=== PATIENT | male | born 1960 | race Caucasian/White ===

== ENCOUNTER → 2017-04-30 | Outpatient (CLI) | payer OTHER, SELFPAY | PROVIDERS: Visit Provider Urology | DX: E29.1 Testicular hypofunction (principal) | CPT/HCPCS: 36415; 84402 ==

== ENCOUNTER → 2019-02-15 13:13 | Outpatient (CLI) | payer OTHER, SELFPAY ==
[2019-02-18 17:25] LABS: Testosterone,Free 5.9 pg/mL (7.2-24.0)
== END ==
PROVIDERS: Visit Provider Urology
DX: E29.1 Testicular hypofunction (principal)
CPT/HCPCS: 36415; 84402; 84403

== ENCOUNTER → 2019-04-13 14:49 | Outpatient (CLI) | payer OTHER, SELFPAY ==
[2019-04-13 15:07] LABS: Basophils # 0.1 K/mm3 (0-0.2); Basophils % 0.8 % (0.1-2.0); Eosinophils # 0.1 K/mm3 (0.0-0.4); Eosinophils % 1.6 % (0.1-12.0); Hemoglobin 16.8 g/dL (14.1-18.0); Lymphocytes # 1.3 K/mm3 (0.7-4.5); Lymphocytes % 19.6 % (10-50); Mean Corpuscular Hemoglobin 30.4 pg (27.0-31.2); Mean Corpuscular Volume 97.8 fl (80-94); Mean Platelet Volume 8.4 fl (7.4-10.4); Monocytes # 0.5 K/mm3 (0.1-1.0); Monocytes % 7.9 % (1.7-9.3); Neutrophils # 4.8 K/mm3 (1.8-7.8); Neutrophils % 70.1 % (37.0-80.0); Platelet Count 243 K/mm3 (142-424); Red Blood Count 5.52 M/mm3 (4.60-6.20); Red Cell Distribution Width 14.8 % (11.5-17.5); White Blood Count 6.8 K/mm3 (4.8-10.8)
[2019-04-13 16:34] LABS: Alanine Aminotransferase 29 U/L (12-78); Albumin Level 4.2 gm/dL (3.4-5.0); Albumin/Globulin Ratio 1.4 (1.1-1.8); Alkaline Phosphatase 60 U/L (46-116); Anion Gap 11.9 mEq/L (5-15); Aspartate Amino Transferase 19 U/L (15-37); Bilirubin,Total 0.8 mg/dL (0.2-1.0); Blood Urea Nitrogen 11 mg/dL (7-18); Calcium 9.2 mg/dL (8.5-10.1); Carbon Dioxide 31 mmol/L (21.0-32.0); Chloride 106 mmol/L (98-107); Chol/HDL Ratio 3.5 (1-3.5); Cholesterol 219 mg/dL (140-200); Creatinine,Serum 0.99 mg/dL (0.70-1.30); Estimated Glomerular Filt Rate 77 ml/min (>60); GFR (African American) 94 ML/MIN (>60); Glucose 59 mg/dL (74-106); HDL Cholesterol 62 mg/dL (27-67); LDL Cholesterol 134 mg/dL (0-130); Potassium 4.9 mmoL/L (3.5-5.1); Sodium 144 mmol/L (136-145); T4 (Thyroxine) 8.3 ug/dl (4.7-13.3); Thyroid Stimulating Hormone 1.12 uIU/ml (0.358-3.740); Total Protein,Serum 7.2 gm/dL (6.4-8.2); Triglycerides 117 mg/dL (30-200); VLDL Cholesterol 23 mg/dL (0-40)
== END ==
PROVIDERS: Visit Provider Emergency Medicine
DX: G89.29 Other chronic pain (principal); R53.83 Other fatigue; Z79.899 Other long term (current) drug therapy
CPT/HCPCS: 80053; 80061; 84436; 84443; 85025

== ENCOUNTER → 2019-06-20 13:27 | Outpatient (CLI) | payer MEDICAID, SELFPAY ==
[2019-06-20 14:00] LABS: Amphetamine/Metha Screen,Urine Negative ng/mL (<1000); Barbiturates Screen,Urine Negative ng/mL (<200); Benzodiazepines Screen,Urine Negative ng/mL (<200); Cannabinoid Screen,Urine Negative ng/mL (<50); Cocaine Screen,Urine Negative ng/mL (<300); Methadone Screen,Urine Negative ng/mL (<300); Opiate Screen,Urine Positive ng/mL (<300); Phencyclidine Screen,Urine Negative ng/mL (<25)
== END ==
PROVIDERS: Visit Provider Emergency Medicine
DX: Z79.899 Other long term (current) drug therapy (principal)
CPT/HCPCS: 80305

== ENCOUNTER → 2019-08-24 08:20 | Outpatient (CLI) | payer MEDICAID, SELFPAY ==
--- NOTE | 2019-08-24 08:23 | MR_ITS ---
PROCEDURE: MR CERVICAL SPINE WO CON CLINICAL INDICATION: neck pain Chronic neck pain, right shoulder and arm pain, prior neck surgery COMPARISON: No exams were available for comparison TECHNIQUE: Standard multiplanar multiecho sequences are performed without contrast. 3-D MIP and myelographic images are also rendered and reviewed FINDINGS: There is normal alignment. There are mild hypertrophic changes at the lateral axial junction C2-C3: Minimal right foraminal narrowing from uncovertebral hypertrophy. C3-C4: Small central disc protrusion versus prominent posterior longitudinal ligament with resultant narrowing of the canal 9 mm without impingement upon the cord. There is mild left foraminal narrowing from uncovertebral and facet hypertrophy C4-C5: Broad-based central left paracentral and foraminal disc protrusion with resultant narrowing of the canal at 9 mm. There is some minimal impingement upon the left aspect of the cord anteriorly along with moderate to severe left lateral recess and foraminal narrowing C5-C6: Artifact from prior anterior cervical disc fusion. There is wedging of the C5 vertebral body anteriorly which may be chronic C6-C7: Bulging disc with broad-based right paracentral disc protrusion with resultant narrowing of the canal at 11 mm. There is mild right foraminal narrowing. C7-T1: Degenerative disc disease with bulging disc and both right and left paracentral disc osteophyte complexes with bilateral lateral recess and foraminal narrowing. IMPRESSION: 1. Multilevel cervical spondylosis with degenerative disc disease, disc protrusions, disc osteophyte complexes and uncovertebral and facet hypertrophy and bulging disc as detailed above. This results in canal stenosis and foraminal and lateral recess narrowing. Please see above for detailed description at each level. 2. Postsurgical changes at C5-C6 Dictated by: Escobar Dale MD 08/25/2019 16:22 Electronically signed by Escobar Dale MD in [place] 08/25/2019 16:22
== END ==
PROVIDERS: PCP Emergency Medicine; Visit Provider Emergency Medicine
DX: M54.2 Cervicalgia (principal)
CPT/HCPCS: 72141; 76376

== ENCOUNTER → 2019-09-13 09:44 | Outpatient (POV) | payer MEDICAID, SELFPAY ==
[2019-09-13 10:06] VITALS: BMI 25.7
--- NOTE | 2019-09-13 10:39 | HMH.PMCON ---
Assessment and Plan (1) Cervical post-laminectomy syndrome Current visit: Yes Status: Chronic Category: Medical Code(s): M96.1 - Postlaminectomy syndrome, not elsewhere classified (2) Lumbar postlaminectomy syndrome Current visit: Yes Status: Chronic Category: Medical Code(s): M96.1 - Postlaminectomy syndrome, not elsewhere classified - Assessment and plan all Dx Assessment and Plan for all problems:: At this time the patient is on an appropriate dose of medication from his primary care physician. We did discuss potentially neurostimulator. We will mail him information in regards to this. If he is interested in pursuing it he is going to give us a call or if he has any questions he is again to give us a call. This encounter was performed as a telemedicine visit via secure 2 way video and audio to minimize risk and transmission of Covid-19. The patient and we understand the limitations of a telemedicine visit including inability to check reflexes, possibly missing subtle findings on physical exam. Alternative options were presented to the patient and the patient elected to proceed with the visit. We specifically discussed risk factors for Covid-19 including age, heart or lung disease, diabetes, immunosuppression and travel. We also discussed that NSAIDs may worsen Covid-19 infection symptoms and that they should not be used to treat Covid-19 symptoms. Patient was also informed that corticosteroids in any form oral or injectable will decrease immune response and may increase risk of Covid-[address] Gallegos has reviewed this patient's chart and this note and agrees with plan of care. Patient has been instructed to call the office if they have any issues prior to the next appointment. HPI - Data of Consult Consult date: 09/13/19 Requesting Physician: Kell Cano APRN Primary Care Provider: Referral Provider, MD - Consult Narrative Reason for consult: Neck pain, back pain History of present illness: Mr. Chavira is a 58 year old male presents today for consultation via telehealth in regards to his neck and low back pain. Patient has a significant spinal history with a herniated ruptured disc in his lower lower spine which was operated on by Dr. Euceda at . He then had neck surgery which has left him with radiating right arm pain. He rates his pain today a 5 out of 10. Patient has had multiple epidural injections and other injections by pain management with no true relief. Patient has finished physical therapy with no relief. Patient is currently on an appropriate dose of [place] by his primary care physician. Patient and I had a long discussion in regards to options with neuro stimulation. I do believe he would be an excellent candidate for this. CC: Kell Cano APRN [facility] History I have reviewed the patient's past medical history: Yes Medical History: Reports:: Gastroesophageal Reflux Disease(GERD), Hyperlipidemia, Hypertension Denies:: Cancer, Diabetes Mellitus Type 1, Diabetes Mellitus Type 2, Internal Pacemaker, MRSA, Seizures *Have you ever received a pneumonia vaccine?: No *Have you received a flu vaccine this season?: No Other Medical History: Reports: Other Laterality Cases: Left: Arthroscopy Hip, Total Hip Replacement, Bilateral: Arthroscopy Knee, Tonsillectomy, Other Other Surgeries: Yes: Colonoscopy, EGD, Other. No: Pacemaker Amputation: No Fractures: No - *Social History Smoking Status: Never smoker Alcohol Intake: never Alcohol Intake Frequency:: a few times a month Substance Use Type: denies use *Occupational Status:: other Housing: house Household Members: other *Travel in the last 8 weeks: None Family Hx:: Cancer, Hypertension, Diabetes, Substance abuse, Mental illness, Alcoholism Review of Systems - Review of Systems ROS General: no recent weight change, no fever, no sleep disturbances Respiratory: no cough, no shortness of air, no recurring pulmonary in
== END ==
PROVIDERS: Visit Provider Clinical Nurse Specialist Family Health
DX: M96.1 Postlaminectomy syndrome, not elsewhere classified (principal)
CPT/HCPCS: 99202

== ENCOUNTER → 2019-10-21 09:41 | Outpatient (CLI) | payer MEDICAID, SELFPAY ==
[2019-10-27 01:39] LABS: Testosterone, Total, LC/MS 403.6 ng/dL (264.0-916.0); Testosterone,Free 8.6 pg/mL (6.6-18.1)
== END ==
PROVIDERS: Visit Provider Urology
DX: E29.1 Testicular hypofunction (principal)
CPT/HCPCS: 36415; 84402; 84403

== ENCOUNTER → 2019-10-25 11:52 | Outpatient (CLI) | payer MEDICAID, SELFPAY ==
--- NOTE | 2019-10-25 12:04 | XR_ITS ---
PROCEDURE: XR KNEE RT 4V CLINICAL INDICATION: knee pain COMPARISON: No exams were available for comparison FINDINGS: There is moderate degenerative narrowing of the medial, lateral, and the patellofemoral joint spaces. There is no fracture or dislocation and the soft tissues are unremarkable. IMPRESSION: Tricompartmental degenerative narrowing as above, no fracture Dictated by: Quincy Dorantes 10/25/2019 13:36 Electronically signed by Quincy Dorantes in [place] 10/25/2019 13:36
--- NOTE | 2019-10-25 12:04 | XR_ITS ---
PROCEDURE: XR KNEE LT 4V CLINICAL INDICATION: knee pain COMPARISON: No exams were available for comparison FINDINGS: There is mild degenerative narrowing of the lateral and the patellofemoral joint spaces. There is no fracture or dislocation and they soft tissues are intact. There 2 punctate synovial osteochondromas within the lateral compartment. IMPRESSION: Degenerative changes as above, no fracture Dictated by: Quincy Dorantes 10/25/2019 13:37 Electronically signed by Quincy Dorantes in [place] 10/25/2019 13:37
== END ==
PROVIDERS: PCP Emergency Medicine; Visit Provider Emergency Medicine
DX: M25.562 Pain in left knee (principal); M25.561 Pain in right knee
CPT/HCPCS: 73564

== ENCOUNTER → 2019-11-04 08:42 | Outpatient (CLI) | payer MEDICAID, SELFPAY ==
--- NOTE | 2019-11-04 08:43 | MR_ITS ---
PROCEDURE: MR KNEE LT WO CON CLINICAL INDICATION: knee pain Knee pain with limited range of motion, recent knee scope COMPARISON: XR KNEE LT 4V from 10/25/2019 TECHNIQUE: Routine multiplanar multi echo sequences are performed without gadolinium enhancement. FINDINGS: The cruciate ligaments appear intact. The collateral ligaments, patellar tendon, and quadriceps tendon are intact. Unremarkable appearing lateral meniscus. The posterior horn of the medial meniscus has an abnormal appearance. There is loss of the normal triangular shape of the posterior horn of the medial meniscus centrally and may be due to meniscal tear or postsurgical defect. The there is a thin area of decreased PD signal on series 4, image 15 just posterior to the anterior horn of the medial meniscus and could represent a small meniscal fragment. This measures approximately 7 by 2 mm and is just posterior to the anterior horn of the medial meniscus. There is a small knee joint effusion in the suprapatellar region with mild osteoarthritic changes of the knee including the patellofemoral joint. Increased T2 signal involves the distal femur anteriorly at the intercondylar region somewhat laterally. This could be due to an area of bone contusion or inflammatory change. A small area of increased T2 signal involves the inferior aspect of the patella centrally. IMPRESSION: 1. Abnormal appearance of the posterior horn of the medial meniscus with loss of the normal triangular shape of the meniscus and increased T2 signal which could be due to meniscal tear or postsurgical change. 2. Possible small meniscal fragment posterior to the anterior horn of the medial meniscus 3. Mild osteoarthritic changes with bone marrow edema of the intercondylar region of the distal femur toward the left and at the posterior patella with small knee joint effusion Dictated by: Escobar Dale MD 11/05/2019 11:56 Electronically signed by Escobar Dale MD in [place] 11/05/2019 11:56
--- NOTE | 2019-11-04 08:43 | MR_ITS ---
PROCEDURE: MR KNEE RT WO CON CLINICAL INDICATION: knee pain Knee pain and stiffness with limited range of motion in the instability, osteoarthritis COMPARISON: XR KNEE RT 4V from 10/25/2019 TECHNIQUE: Routine multiplanar multi echo sequences are performed without gadolinium enhancement. FINDINGS: Fibers of the ACL are incomplete and sparse consistent with a chronic tear. The PCL appears intact. Collateral ligaments are unremarkable. The patellar tendon and quadriceps tendon appears intact. The anterior horn of the lateral meniscus is very small and may be due to chronic tear or prior surgery. The posterior horn of the lateral meniscus is unremarkable. The anterior horn of the medial meniscus is unremarkable. The posterior horn of the medial meniscus is enlarged posteriorly and centrally complex increased T2 signal involves the posterior horn of the medial meniscus consistent with complex tear and or postsurgical changes. A defect is present in the body of the medial meniscus. The anterior and posterior horns do not appear to communicate secondary to this defect. This is consistent with a radial tear with some separation of the meniscal fragments versus a postsurgical defect. Please correlate with patient's operative report from prior knee scope. There are tricompartmental osteoarthritic changes which are moderate in nature. Increased T2 signal involves the medial aspect of the proximal tibia consistent with an area of bone marrow edema. There are moderate to severe osteoarthritic changes of the patellofemoral joint with some thinning of the patellar cartilage. There is a small knee joint effusion. There is also some bone marrow edema within the medial aspect of the lateral femoral condyle posteriorly and within the posterior aspect of the proximal tibia posteriorly. There is a loose fragment in the popliteal region superiorly measuring 7 mm in the intercondylar area. Area of increased T2 signal is present in the posterior and central aspect of the proximal tibia may be due to cystic area possibly due to an osteochondral defect which could be the donor site of the loose body. IMPRESSION: 1. Suspect chronic tear of the ACL. 2. Anterior horn of the lateral meniscus is very small and could be due to chronic tear and/or postsurgical change. 3. Enlarged posterior horn of the medial meniscus with irregular increased T2 signal and may be due to complex tear and or postsurgical change 4. Radial tear of the body of the medial meniscus with minimal separation of the meniscal fragments 5. Moderate to severe osteoarthritic changes with scattered areas of bone marrow edema, small knee joint effusion, intra-articular loose body in the intercondylar region of the distal femur with possible osteochondral defect of the proximal tibia medially and posteriorly Dictated by: Escobar Dale MD 11/05/2019 11:46 Electronically signed by Escobar Dale MD in [place] 11/05/2019 11:46
== END ==
PROVIDERS: PCP Emergency Medicine; Visit Provider Emergency Medicine
DX: M25.562 Pain in left knee (principal); M25.561 Pain in right knee
CPT/HCPCS: 73721

== ENCOUNTER → 2020-03-14 15:17 | Outpatient (CLI) | payer MEDICAID, SELFPAY ==
[2020-03-23 08:59] LABS: Testosterone, Total, LC/MS 425.5 ng/dL (264.0-916.0); Testosterone,Free 9.8 pg/mL (6.6-18.1)
== END ==
PROVIDERS: Visit Provider Urology
DX: E29.1 Testicular hypofunction (principal)
CPT/HCPCS: 36415; 84402; 84403

== ENCOUNTER → 2020-07-09 11:50 | Outpatient (CLI) | payer MEDICAID, SELFPAY ==
[2020-07-09 12:51] LABS: Anion Gap 8.3 mEq/L (5-15); Blood Urea Nitrogen 12 mg/dl (9-20); Calcium 9.9 mg/dl (8.4-10.2); Carbon Dioxide 32 mmol/L (22.0-30.0); Chloride 104 mmol/L (98-107); Estimated Glomerular Filt Rate 76 ml/min (>60); GFR (African American) 92 ML/MIN (>60); Glucose 101 mg/dl (74-100); Potassium 4.3 mmoL/L (3.5-5.1); Sodium 140 mmol/L (136-145)
== END ==
PROVIDERS: Visit Provider Emergency Medicine
DX: I10 Essential (primary) hypertension (principal)
CPT/HCPCS: 80048

== ENCOUNTER → 2020-08-08 14:02 | Outpatient (CLI) | payer MEDICAID, SELFPAY ==
[2020-08-08 15:16] LABS: Amphetamine/Metha Screen,Urine Negative ng/ml (<1000)
[2020-08-08 15:17] LABS: Barbiturates Screen,Urine Negative ng/ml (<200); Benzodiazepines Screen,Urine Negative ng/ml (<200)
[2020-08-08 15:18] LABS: Cannabinoid Screen,Urine Negative ng/ml (<50)
[2020-08-08 15:19] LABS: Cocaine Screen,Urine Negative ng/ml (<300); Methadone Screen,Urine Negative ng/ml (<300)
[2020-08-08 15:20] LABS: Opiate Screen,Urine Negative ng/ml (<300); Phencyclidine Screen,Urine Negative ng/ml (<25)
== END ==
PROVIDERS: Visit Provider Emergency Medicine
DX: M47.812 Spondylosis without myelopathy or radiculopathy, cervical region (principal); M47.816 Spondylosis without myelopathy or radiculopathy, lumbar region
CPT/HCPCS: 80305

== ENCOUNTER → 2020-10-03 14:52 | Outpatient (CLI) | payer MEDICAID, SELFPAY ==
[2020-10-03 16:33] LABS: Amphetamine/Metha Screen,Urine Negative ng/ml (<1000); Barbiturates Screen,Urine Negative ng/ml (<200); Benzodiazepines Screen,Urine Negative ng/ml (<200); Cannabinoid Screen,Urine Positive ng/ml (<50); Cocaine Screen,Urine Negative ng/ml (<300); Methadone Screen,Urine Negative ng/ml (<300); Opiate Screen,Urine Negative ng/ml (<300); Phencyclidine Screen,Urine Negative ng/ml (<25)
== END ==
PROVIDERS: Visit Provider Emergency Medicine
DX: Z79.899 Other long term (current) drug therapy (principal)
CPT/HCPCS: 80305

== ENCOUNTER → 2020-12-05 14:44 | Outpatient (CLI) | payer MEDICAID, SELFPAY ==
[2020-12-05 17:06] LABS: Amphetamine/Metha Screen,Urine Negative ng/ml (<1000); Barbiturates Screen,Urine Negative ng/ml (<200)
[2020-12-05 17:07] LABS: Benzodiazepines Screen,Urine Negative ng/ml (<200)
[2020-12-05 17:08] LABS: Cannabinoid Screen,Urine Negative ng/ml (<50); Cocaine Screen,Urine Negative ng/ml (<300)
[2020-12-05 17:09] LABS: Methadone Screen,Urine Negative ng/ml (<300)
[2020-12-05 17:10] LABS: Opiate Screen,Urine Negative ng/ml (<300)
[2020-12-05 17:18] LABS: Phencyclidine Screen,Urine Negative ng/ml (<25)
== END ==
PROVIDERS: Visit Provider Emergency Medicine
DX: Z79.899 Other long term (current) drug therapy (principal)
CPT/HCPCS: 80305

== ENCOUNTER → 2021-02-06 14:15 | Outpatient (CLI) | payer MEDICAID, SELFPAY ==
[2021-02-06 14:48] LABS: Barbiturates Screen,Urine Negative ng/ml (<200); Benzodiazepines Screen,Urine Negative ng/ml (<200)
[2021-02-06 14:49] LABS: Amphetamine/Metha Screen,Urine Negative ng/ml (<1000)
[2021-02-06 14:50] LABS: Cannabinoid Screen,Urine Negative ng/ml (<50); Cocaine Screen,Urine Negative ng/ml (<300)
[2021-02-06 14:51] LABS: Methadone Screen,Urine Negative ng/ml (<300)
[2021-02-06 14:52] LABS: Opiate Screen,Urine Negative ng/ml (<300); Phencyclidine Screen,Urine Negative ng/ml (<25)
== END ==
PROVIDERS: Visit Provider Emergency Medicine
DX: Z79.899 Other long term (current) drug therapy (principal)
CPT/HCPCS: 80305

== ENCOUNTER → 2021-03-19 10:05 | Outpatient (CLI) | payer MEDICAID, SELFPAY ==
[2021-03-21 22:29] LABS: Testosterone, Total, LC/MS 460.5 ng/dL (264.0-916.0); Testosterone,Free 8.9 pg/mL (6.6-18.1)
== END ==
PROVIDERS: Visit Provider Urology
DX: E29.1 Testicular hypofunction (principal)
CPT/HCPCS: 36415; 84402; 84403

== ENCOUNTER → 2021-04-05 13:22 | Outpatient (CLI) | payer MEDICAID, SELFPAY ==
[2021-04-05 15:12] LABS: Amphetamine/Metha Screen,Urine Negative ng/ml (<1000); Barbiturates Screen,Urine Negative ng/ml (<200)
[2021-04-05 15:13] LABS: Benzodiazepines Screen,Urine Negative ng/ml (<200)
[2021-04-05 15:14] LABS: Cannabinoid Screen,Urine Negative ng/ml (<50); Cocaine Screen,Urine Negative ng/ml (<300)
[2021-04-05 15:15] LABS: Methadone Screen,Urine Negative ng/ml (<300); Opiate Screen,Urine Negative ng/ml (<300)
[2021-04-05 15:16] LABS: Phencyclidine Screen,Urine Negative ng/ml (<25)
== END ==
PROVIDERS: Visit Provider Emergency Medicine
DX: Z79.899 Other long term (current) drug therapy (principal)
CPT/HCPCS: 80305

== ENCOUNTER → 2021-06-04 13:49 | Outpatient (CLI) | payer MEDICAID, SELFPAY ==
[2021-06-04 14:50] LABS: Amphetamine/Metha Screen,Urine Negative ng/ml (<1000)
[2021-06-04 14:52] LABS: Barbiturates Screen,Urine Negative ng/ml (<200)
[2021-06-04 14:53] LABS: Benzodiazepines Screen,Urine Negative ng/ml (<200); Cannabinoid Screen,Urine Negative ng/ml (<50)
[2021-06-04 14:54] LABS: Methadone Screen,Urine Negative ng/ml (<300)
[2021-06-04 14:55] LABS: Opiate Screen,Urine Negative ng/ml (<300)
[2021-06-04 14:56] LABS: Phencyclidine Screen,Urine Negative ng/ml (<25)
[2021-06-04 15:06] LABS: Cocaine Screen,Urine Negative ng/ml (<300)
== END ==
PROVIDERS: Visit Provider Emergency Medicine
DX: Z79.899 Other long term (current) drug therapy (principal)
CPT/HCPCS: 80305

== ENCOUNTER 2021-08-04 13:03 | Emergency (ER) | payer MEDICAID, SELFPAY ==
[2021-08-04 13:35] VITALS: BP 148/88; PULSE 76; RESP 19; TEMP 36.7; O2SAT 98; BMI 26.2
[2021-08-04 13:57] LABS: UTC Influenza A Antigen Negative (Negative); UTC Influenza B Antigen Negative (Negative)
--- NOTE | 2021-08-04 13:58 | HMH.EDUTC ---
[facility] [place] Clinical Impression: Bronchitis Disposition: Home, Self-Care Condition on Discharge: Good Instructions: DI for Acute Bronchitis Additional Instructions: Start antibiotic today. Be sure to complete entire prescription even if feeling better Tylenol and ibuprofen as needed for pain or fever Humidifier/vaporizer/hot steamy shower Follow-up with primary care tomorrow. Follow-up immediately in the ER of the [facility] for new or worsening symptoms or no noticeable improvement over the next 48-72 hours. Stop smoking Inhaler every 4-6 hours as needed. Should help open airways improved cough, wheezing, shortness of breath Start steroids today. Helps with inflammation therefore coughing and wheezing. Follow directions on package. Prescriptions: Albuterol Sulfate [Albuterol Sulfate Hfa] 6.7 gm IH Q4-6H PRN 14 Days #1 each PRN Reason: Wheezing Prescription Printed Fluticasone Propionate [Flonase 50mcg nasal spray 16gm] 1 spr NS DAILY 7 Days #9.9 ml Prescription Printed predniSONE [Prednisone 20mg Tab] 20 mg PO BID #10 tab Prescription Printed Azithromycin [Zithromax 250mg tab] 250 mg PO DIRECTED #6 tab Prescription Printed Referrals: Chaim Barcenas MD [Primary Care Provider] - Time of Disposition: 14:05 Medical Decision Making - [place] Inquiry Pt receiving controlled substance: No Vital Signs: 08/04/21 13:35 Temperature 98.0 F Temperature Source Oral Pulse Rate [Right Brachial] 76 Respiratory Rate 19 Blood Pressure [Right Arm] 148/88 H Blood Pressure Mean [Right Arm] 108 Blood Pressure Source [Right Arm] Automatic Cuff Blood Pressure Position [Right Arm] Sitting 02 Sat by Pulse Oximetry 98 Oxygen Delivery Method Room Air - Lab Data Lab Results 08/04/21 13:44: Influenza Type A Ag Negative, Influenza Type B Ag Negative [facility] [place] HPI - General Chief complaint: [facility] Stated complaint: sore throat, cough, h/a, congestion, body aches Time Seen by Provider: 08/04/21 13:58 Mode of Arrival: Ambulatory Source of Information: Patient Limitations: No Limitations Description of Symptoms (Recalled from Triage Doc. by RN): PATIENT C/O FATIGUE, SINUS PRESSURE, COUGH, AND LUNGS BURNING. RECENTLY EXPOSED TO FLU HEENT Symptoms (Recalled from RN notes): Yes Resp Symptoms (Recalled from RN notes): Yes Skin Symptoms (Recalled from RN notes): No MS Symptoms (Recalled from RN notes): No Functional Status (Recalled from RN notes): WNL - History of Present Illness Provider Complaint: 60 yr old male presents for sinus pressure, chest congestion, coughing up dark yellow sputum, and weakness, has been exposed to flu. pt states he gets bronchitits this time every year - Related Data Home Medications Medication Instructions Recorded Confirmed testosterone 75 mg implant pellet 75 mg [place] .3x ayear each 02/14/19 07/31/21 Previous Rx's Medication Instructions Recorded lisinopril 10 mg tablet See Rx Instructions .ROUTE 04/04/21 .COMPLEX #60 tab atorvastatin 10 mg tablet See Rx Instructions .ROUTE 06/26/21 .COMPLEX #90 tab bisoprolol fumarate 10 mg tablet See Rx Instructions .ROUTE 06/26/21 .COMPLEX #90 tab pantoprazole 40 mg tablet,delayed See Rx Instructions .ROUTE 06/26/21 release .COMPLEX #90 tab loratadine 10 mg tablet See Rx Instructions .ROUTE 07/31/21 .COMPLEX #90 tab oxycodone-acetaminophen 7.5 mg-325 1 tab PO TID #90 tab 07/31/21 mg tablet Albuterol Sulfate [Albuterol 6.7 gm IH Q4-6H PRN 14 Days #1 each 08/04/21 Sulfate Hfa] Azithromycin [Zithromax 250mg 250 mg PO DIRECTED #6 tab 08/04/21 tab] Fluticasone Propionate [Flonase 1 spr NS DAILY 7 Days #9.9 ml 08/04/21 50mcg nasal spray 16gm] predniSONE [Prednisone 20mg 20 mg PO BID #10 tab 08/04/21 Tab] Allergies Allergy/AdvReac Type Severity Reaction Status Date / Time No Known Allergies Allergy Verified 07/31/21 09:23 - Worker's Comp Is this a Worker's Comp case
[2021-08-04 14:12] VITALS: BP 148/88; PULSE 76; RESP 19; TEMP 36.7; O2SAT 98
== END 2021-08-04 14:15 | disposition home or self-care (01) ==
PROVIDERS: Emergency Provider Nurse Practitioner Family; PCP Emergency Medicine
DX: J40 Bronchitis, not specified as acute or chronic (principal); I10 Essential (primary) hypertension; K21.9 Gastro-esophageal reflux disease without esophagitis; E78.5 Hyperlipidemia, unspecified; G89.29 Other chronic pain; F19.11 Other psychoactive substance abuse, in remission; F10.20 Alcohol dependence, uncomplicated; Z79.51 Long term (current) use of inhaled steroids; Z79.52 Long term (current) use of systemic steroids; Z79.899 Other long term (current) drug therapy; Z86.59 Personal history of other mental and behavioral disorders; Z96.649 Presence of unspecified artificial hip joint; Z82.49 Family history of ischemic heart disease and other diseases of the circulatory system; Z83.3 Family history of diabetes mellitus
CPT/HCPCS: 87804; 99213; G0463

== ENCOUNTER 2021-08-22 11:26 | Emergency (ER) | payer MEDICAID, SELFPAY ==
[2021-08-22 11:27] VITALS: BP 137/92; PULSE 70; RESP 19; TEMP 36.6; O2SAT 97; BMI 25.9
--- NOTE | 2021-08-22 12:51 | HMH.EDUTC ---
[facility] [place] Clinical Impression: Bronchitis Sinusitis Qualifiers: Sinusitis location: unspecified location Chronicity: unspecified Qualified Code(s): J32.9 - Chronic sinusitis, unspecified Disposition: Home, Self-Care Condition on Discharge: Good Instructions: Sinusitis, DI for Sinusitis, DI for Acute Bronchitis Additional Instructions: ? Start antibiotic today. Be sure to complete entire prescription even if feeling better ? Monitor temp. Tylenol every 4 hours as needed and / or ibuprofen every 6 hours as needed ( As long as your primary care physician has told you that it ok to take both. For fever/aches/pains ER if no less than 101 despite Tylenol or Motrin ? Humidifier/vaporizer or hot steamy shower ? Inhaler every 4-6 hours as needed like we discussed. If unsure how to use it, ask pharmacist to demonstrate how. Should help open airways and improve cough, wheezing, and shortness of breath *Tessalon Perles will not cause drowsiness but use at bedtime to help stop cough so that you may get some rest. *Start steroid today. Helps with inflammation therefore, cough and wheezing. Follow directions on the package. Reviewed side effects. Patient reports taking them before. Follow up IMMEDIATELY for new or worsening of symptoms OR no noticeable improvement over the next 48-72 hours. 911 immediately for any life threatening symptoms such as chest pain or difficulty breathing Prescriptions: Benzonatate [Benzonatate 100mg cap] 100 mg PO Q8HP PRN #15 cap PRN Reason: Cough Transmission Status: Pending to [facility] Amoxicillin/Potassium Clav [Amox-Clav 875-125 mg Tablet] 1 tab PO BID #20 tab Transmission Status: Pending to [facility] predniSONE [Prednisone 20mg Tab] 20 mg PO BID 5 Days #10 tab Transmission Status: Pending to [facility] Referrals: Chaim Barcenas MD [Primary Care Provider] - As needed Time of Disposition: 13:45 Medical Decision Making - [place] Inquiry Pt receiving controlled substance: No [place] was queried for this patient: No Vital Signs: 08/22/21 11:27 Temperature 97.8 F Temperature Source Oral Pulse Rate [Left Radial] 70 Respiratory Rate 19 Blood Pressure [Right Arm] 137/92 H Blood Pressure Mean [Right Arm] 107 Blood Pressure Source [Right Arm] Automatic Cuff Blood Pressure Position [Right Arm] Sitting 02 Sat by Pulse Oximetry 97 Oxygen Delivery Method Room Air - Lab Data Lab results reviewed: Yes: I reviewed the patient's lab results. Lab Results 08/22/21 13:08: Group A Strep Rapid Negative Orders (Tests/Meds): ORDERS Category Date Time Status Full Resp Panel w/COVID ([facility]) Routine Lab 08/22/21 13:08 Received Strep Screen Confirmation Stat Micro 08/22/21 13:08 Received [facility] HPI - General Stated complaint: chest congestion, sore throat, ccough Time Seen by Provider: 08/22/21 12:51 Mode of Arrival: Ambulatory Source of Information: Patient Limitations: No Limitations Description of Symptoms (Recalled from Triage Doc. by RN): SORE THROAT, LOSS OF VOICE, HEADACHE, SORE LUNGS, FEELS LIKE BRONCHITIS. FINISHED Z PACK AND STEROIDS THAT WAS PRESCRIBED TWO WEEKS AGO. HEENT Symptoms (Recalled from RN notes): Yes Resp Symptoms (Recalled from RN notes): Yes Skin Symptoms (Recalled from RN notes): No MS Symptoms (Recalled from RN notes): No Functional Status (Recalled from RN notes): N/A - History of Present Illness Provider Complaint: Patient states that he has been having cough, sore throat, sinus pain and pressure along with headache and feeling like he is loosing his voice State that he was seen a couple weeks ago and was given antibiotics and he felt a little better but now it is back States that he is having drianage in the back of his throat and causing irritation so he came in to get checked - Related Data Home Medications Medication Instructions Recorded Confirmed testosterone 75 mg implant pellet 75 mg [place] .3x ayear each 02/01
[2021-08-22 13:08] LABS: Adenovirus,PCR Not Detected (NotDetected); Bordetella Pertussis Not Detected (NotDetected); Chlamydophila Pneumoniae, PCR Not Detected (NotDetected); Coronavirus 19, PCR Not Detected (NotDetected); Coronavirus 229E Not Detected (NotDetected); Coronavirus NL63 Not Detected (NotDetected); Coronavirus OC43 Not Detected (NotDetected); Coronovirus HKU1,PCR Not Detected (NotDetected); Human Metapneumovirus Not Detected (NotDetected); Influenza A, PCR Not Detected (NotDetected); Influenza AH1, 2009 Not Detected (NotDetected); Influenza AH1, PCR Not Detected (NotDetected); Influenza AH3,PCR Not Detected (NotDetected); Influenza B, PCR Not Detected (NotDetected); Mycoplasma Pneumoniae, PCR Not Detected (NotDetected); Parainfluenza 1, PCR Not Detected (NotDetected); Parainfluenza 2, PCR Not Detected (NotDetected); Parainfluenza 3, PCR Not Detected (NotDetected); Parainfluenza 4, PCR Not Detected (NotDetected); Respiratory Syncytial Virus Not Detected (NotDetected); Rhinovirus/Enterovirus Not Detected (NotDetected)
[2021-08-22 13:30] LABS: Strep Scrn Group A (Rapid) Negative (Negative)
[2021-08-22 14:21] VITALS: BP 137/92; PULSE 70; RESP 17; TEMP 36.6; O2SAT 97
== END 2021-08-22 14:23 | disposition home or self-care (01) ==
PROVIDERS: Emergency Provider Nurse Practitioner; PCP Emergency Medicine
DX: J20.9 Acute bronchitis, unspecified (principal); J32.9 Chronic sinusitis, unspecified; I10 Essential (primary) hypertension
CPT/HCPCS: 87430; 87581; 87632; 87798; 99213; C9803; G0463; U0003; U0005

== ENCOUNTER → 2021-09-23 12:59 | Outpatient (CLI) | payer MEDICAID, SELFPAY ==
[2021-09-23 14:24] LABS: Amphetamine/Metha Screen,Urine Negative ng/ml (<1000)
[2021-09-23 14:25] LABS: Barbiturates Screen,Urine Negative ng/ml (<200); Benzodiazepines Screen,Urine Negative ng/ml (<200)
[2021-09-23 14:26] LABS: Cannabinoid Screen,Urine Negative ng/ml (<50)
[2021-09-23 14:27] LABS: Cocaine Screen,Urine Negative ng/ml (<300)
[2021-09-23 14:28] LABS: Methadone Screen,Urine Negative ng/ml (<300); Opiate Screen,Urine Negative ng/ml (<300)
[2021-09-23 14:29] LABS: Phencyclidine Screen,Urine Negative ng/ml (<25)
== END ==
PROVIDERS: PCP Emergency Medicine; Visit Provider Emergency Medicine
DX: M54.50 Low back pain, unspecified (principal); Z79.899 Other long term (current) drug therapy
CPT/HCPCS: 80305

== ENCOUNTER 2021-11-07 21:35 | Emergency (ER) | payer MEDICAID, SELFPAY ==
[2021-11-07 22:03] VITALS: BP 176/110; PULSE 53; RESP 14; TEMP 36.8; O2SAT 100; BMI 25.1
--- NOTE | 2021-11-07 22:13 | CT_ITS ---
PROCEDURE INFORMATION: Exam: CT Head Without Contrast Exam date and time: 11/07/2021 10:18 PM Age: 61 years old Clinical indication: Other: Gen. Weakness; Additional info: Dehydrated/weak TECHNIQUE: Imaging protocol: Computed tomography of the head without contrast. Radiation optimization: All CT scans at this facility use at least one of these dose optimization techniques: automated exposure control; mA and/or kV adjustment per patient size (includes targeted exams where dose is matched to clinical indication); or iterative reconstruction. COMPARISON: MR CERVICAL SPINE WO CON 08/24/2019 8:32 AM FINDINGS: Brain: Normal. No hemorrhage. Unremarkable white matter. No mass effect. Cerebral ventricles: No ventriculomegaly. Paranasal sinuses: Visualized sinuses are unremarkable. No fluid levels. Mastoid air cells: Visualized mastoid air cells are well aerated. Bones/joints: Unremarkable. No acute fracture. Soft tissues: Unremarkable. IMPRESSION: No acute intracranial abnormality.
--- NOTE | 2021-11-07 22:13 | XR_ITS ---
PROCEDURE INFORMATION: Exam: XR Chest Exam date and time: 11/07/2021 10:12 PM Age: 61 years old Clinical indication: Other: Weakness; Additional info: Weakness/dehydrated/fever/covid exposure TECHNIQUE: Imaging protocol: Radiologic exam of the chest. Views: 2 views. COMPARISON: MR CERVICAL SPINE WO CON 08/24/2019 8:32 AM FINDINGS: Lungs: Unremarkable. No consolidation. Pleural spaces: Unremarkable. No pleural effusion. No pneumothorax. Heart/Mediastinum: Unremarkable. No cardiomegaly. Bones/joints: Unremarkable. IMPRESSION: No acute findings.
[2021-11-07 22:30] VITALS: PULSE 59; O2SAT 98
[2021-11-07 22:30] LABS: Basophils # 0.1 K/mm3 (0-0.2); Basophils % 1.6 % (0.1-2.0); Eosinophils # 0.2 K/mm3 (0.0-0.4); Eosinophils % 3.2 % (0.1-12.0); Hematocrit 49.2 % (42.0-52.0); Hemoglobin 15.6 g/dL (14.1-18.0); Lymphocytes # 1.6 K/mm3 (0.7-4.5); Lymphocytes % 24.2 % (10-50); Mean Corpuscular HGB Conc 31.7 g/dL (31.8-35.4); Mean Corpuscular Hemoglobin 31.3 pg (27.0-31.2); Mean Corpuscular Volume 98.7 fl (80-94); Mean Platelet Volume 8.3 fl (7.4-10.4); Monocytes # 0.5 K/mm3 (0.1-1.0); Monocytes % 7.8 % (1.7-9.3); Neutrophils % 63.2 % (37.0-80.0); Platelet Count 205 K/mm3 (142-424); Red Blood Count 4.98 M/mm3 (4.60-6.20); White Blood Count 6.4 K/mm3 (4.8-10.8)
[2021-11-07 22:46] LABS: Chloride 105 mmol/L (98-107); Sodium 141 mmol/L (136-145)
[2021-11-07 22:47] LABS: Potassium 4.2 mmoL/L (3.5-5.1)
[2021-11-07 22:49] LABS: Alanine Aminotransferase 39 U/L (12-78); Albumin Level 3.9 g/dl (3.5-5.0); Albumin/Globulin Ratio 1.5 (1.1-1.8); Alkaline Phosphatase 60 U/L (38-126); Anion Gap 7.2 mEq/L (5-15); Aspartate Amino Transferase 45 U/L (17-59); Bilirubin,Total 0.5 mg/dl (0.2-1.3); Blood Urea Nitrogen 8 mg/dl (9-20); Carbon Dioxide 33 mmol/L (22.0-30.0); Creatinine Clearance Estimated 88 mL/min (50-200); Estimated Glomerular Filt Rate 86 ml/min (>60); GFR (African American) 103 ML/MIN (>60); Globulin 2.6 g/dL (1.3-3.2); Total Protein,Serum 6.5 g/dl (6.3-8.2)
[2021-11-07 22:50] LABS: Calcium 9.3 mg/dl (8.4-10.2); Glucose 125 mg/dl (74-100)
[2021-11-07 22:55] LABS: C-Reactive Protein 1.2 mg/L (0-4)
[2021-11-07 23:05] LABS: Erythrocyte Sedimentation Rate 8 mm/hr (0-20)
[2021-11-08] VITALS: PULSE 46; O2SAT 97
[2021-11-08 01:00] VITALS: PULSE 48; O2SAT 98
[2021-11-08 01:24] LABS: Adenovirus,PCR Not Detected (NotDetected); Bordetella Pertussis Not Detected (NotDetected); Chlamydophila Pneumoniae, PCR Not Detected (NotDetected); Coronavirus 19, PCR Not Detected (NotDetected); Coronavirus 229E Not Detected (NotDetected); Coronavirus NL63 Not Detected (NotDetected); Coronavirus OC43 Not Detected (NotDetected); Coronovirus HKU1,PCR Not Detected (NotDetected); Human Metapneumovirus Not Detected (NotDetected); Influenza A, PCR Not Detected (NotDetected); Influenza AH1, 2009 Not Detected (NotDetected); Influenza AH1, PCR Not Detected (NotDetected); Influenza AH3,PCR Not Detected (NotDetected); Influenza B, PCR Not Detected (NotDetected); Mycoplasma Pneumoniae, PCR Not Detected (NotDetected); Parainfluenza 1, PCR Not Detected (NotDetected); Parainfluenza 2, PCR Not Detected (NotDetected); Parainfluenza 3, PCR Not Detected (NotDetected); Parainfluenza 4, PCR Not Detected (NotDetected); Respiratory Syncytial Virus Not Detected (NotDetected); Rhinovirus/Enterovirus Not Detected (NotDetected)
[2021-11-08 01:26] LABS: Microscopic, Urine URINE MICROSCOPIC (MICROSCOPIC)
[2021-11-08 01:27] LABS: Appearance,Urine CLEAR (Clear); Bilirubin,Urine Negative (Negative); Blood, Urine Negative (Negative); Color,Urine YELLOW (Yellow); Glucose,Urine (UA) Negative (Negative); Ketones,Urine Negative (Negative); Leukocyte Esterase,Urine Negative (Negative); Nitrate,Urine Negative (Negative); PH,Urine 6.5 (5.0-8.5); Protein,Urine Negative (Negative); Urobilinogen,Urine 0.2 EU/dl (0.2)
--- NOTE | 2021-11-08 01:29 | HMH.EDWEAK ---
ED Disposition Clinical Impression: Heatstroke and sunstroke, sequela Disposition: Home, Self-Care Condition on Discharge: Good Instructions: DI for Heat Exhaustion and Heat Stroke Additional Instructions: fluids and see pcp for follow up Referrals: Chaim Barcenas MD [Primary Care Provider] - - Critical Care Critical Care Time: No Attestation: On 11/07/21, the high probability of a clinically significant, sudden or life threatening deterioration of the following system(s) required my full and direct attention, intervention and personal management. The time I documented below is in addition to time spent performing reported procedures but includes the following listed in this critical care notation. Medical Decision Making - Medical Records Medical records reviewed: Yes: I reviewed the patient's medical records. - Shel[place] Inquiry Pt receiving controlled substance: No Vital Signs: 11/07/21 22:03 Temperature 98.2 F Temperature Source Oral Pulse Rate [Right Brachial] 53 L Respiratory Rate 14 Blood Pressure [Right Arm] 176/110 H Blood Pressure Mean [Right Arm] 132 Blood Pressure Source [Right Arm] Automatic Cuff Blood Pressure Position [Right Arm] Sitting 02 Sat by Pulse Oximetry 100 Oxygen Delivery Method Room Air - Lab Data Lab results reviewed: Yes: I reviewed the patient's lab results. Lab Results 11/07/21 22:20: WBC 6.4, RBC 4.98, Hgb 15.6, Hct 49.2, MCV 98.7 H, MCH 31.3 H, MCHC 31.7 L, RDW 14.0, Plt Count 205, MPV 8.3, Neut % (Auto) 63.2, Lymph % (Auto) 24.2, [place] % (Auto) 7.8, Eos % (Auto) 3.2, Baso % (Auto) 1.6, Neut # (Auto) 4.0, Lymph # (Auto) 1.6, [place] # (Auto) 0.5, Eos # (Auto) 0.2, Baso # (Auto) 0.1, ESR 8 11/07/21 22:20: Sodium 141, Potassium 4.2, Chloride 105, Carbon Dioxide 33 H, Anion Gap 7.2, BUN 8 L, Creatinine 0.90, Estimated Creat Clear 88, Estimated GFR 86, Est GFR ( Amer) 103, Glucose 125 H, Calcium 9.3, Total Bilirubin 0.5, AST 45, ALT 39, Alkaline Phosphatase 60, C-Reactive Protein 1.2, Total Protein 6.5, Albumin 3.9, Globulin 2.6, Albumin/Globulin Ratio 1.5 11/08/21 01:22: Urine Color Yellow, Urine Appearance Clear, Urine pH 6.5, Ur Specific [place] 1.020, Urine Protein Negative, Urine Glucose (UA) Negative, Urine Ketones Negative, Urine Blood Negative, Urine Nitrate Negative, Urine Bilirubin Negative, Urine Urobilinogen 0.2, Ur Leukocyte Esterase Negative, Urine WBC 3-5, Urine Bacteria 1+, Urine Mucus 2+ Result diagrams: 11/07/21 22:20 11/07/21 22:20 Orders (Tests/Meds): ED MEDICATIONS Generic Name Dose Route Start Last Admin Trade Name Freq PRN Reason Stop Dose Admin Sodium Chloride 1,000 mls @ 999 mls/hr 11/07/21 22:15 Sod Chlor 0.9% 1000ml Bag IV 11/07/21 23:15 .Q1H1M GINGER ORDERS Category Date Time Status Full Resp Panel w/COVID ([facility]) Routine Lab 11/08/21 01:20 Received - Radiology Data #1 Image(s): Chest Image Reviewed: Yes I have reviewed radiologist's interpretation Preliminary Findings: Normal/NAD - CT Data CT Scan: Head Time Received: 01:[address] Reviewed: Yes: I have viewed the radiologist's interpretation Preliminary Findings: Normal/NAD Medical Decision Narrative: had sig heat exposure and has continued heat stroke like sx Weakness HPI - General Chief complaint: Weakness Stated complaint: Possible Heat stroke,Dizzy,weakness Time Seen by Provider: 11/08/21 01:29 Mode of Arrival: Family Vehicle Source of Information: Patient, Spouse, Medical Record Limitations: No Limitations Description of Symptoms (Recalled from ER Triage Doc. by RN): pt describes being outside in the heat over the weekend and dehydrating himself to the point of not sweating, despite being rehydrated with po electrolytes. had one episode of vomiting. vss however is hypertensive. patient states in addition to this he has been exposed to a niece who is covid positive. 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 is vaccinated again
[2021-11-08 01:53] LABS: Bacteria,Urine 1+ /lpf; Mucus,Urine 2+ /lpf
[2021-11-08 02:35] VITALS: BP 176/93; PULSE 54; RESP 16; TEMP 37.2; O2SAT 100
== END 2021-11-08 02:51 | disposition home or self-care (01) ==
PROVIDERS: Emergency Provider Emergency Medicine; PCP Emergency Medicine
DX: T67.01XA Heatstroke and sunstroke, initial encounter (principal); X30.XXXA Exposure to excessive natural heat, initial encounter; Z20.822 Contact with and (suspected) exposure to COVID-19
CPT/HCPCS: 70450; 71046; 80053; 81001; 85025; 85651; 86140; 87581; 87632; 87798; 96365; 96366; 99284; C9803; U0003; U0005

== ENCOUNTER 2021-11-21 22:32 | Emergency (ER) | payer MEDICAID, SELFPAY ==
[2021-11-21 22:44] VITALS: BP 126/89; PULSE 79; RESP 22; TEMP 37.7; O2SAT 96; BMI 25.1
--- NOTE | 2021-11-21 22:54 | XR_ITS ---
PROCEDURE INFORMATION: Exam: XR Chest Exam date and time: 11/21/2021 10:56 PM Age: 61 years old Clinical indication: Cough and fever; Additional info: Cough, fever TECHNIQUE: Imaging protocol: Radiologic exam of the chest. Views: 2 views. COMPARISON: CR XR CHEST 2V 11/07/2021 10:12 PM FINDINGS: Lungs: Lungs are clear. Pleural spaces: Unremarkable. No pleural effusion. No pneumothorax. Heart/Mediastinum: Unremarkable. No cardiomegaly. Vasculature: Tortuous aorta. Bones/joints: Unremarkable. IMPRESSION: No acute cardiopulmonary abnormality.
[2021-11-21 23:01] LABS: Influenza A, PCR Not Detected (NotDetected); Influenza B, PCR Not Detected (NotDetected)
[2021-11-21 23:13] LABS: Basophils # 0.1 K/mm3 (0-0.2); Basophils % 1.9 % (0.1-2.0); Eosinophils # 0.1 K/mm3 (0.0-0.4); Eosinophils % 1.7 % (0.1-12.0); Hemoglobin 15.5 g/dL (14.1-18.0); Lymphocytes # 0.6 K/mm3 (0.7-4.5); Lymphocytes % 7.2 % (10-50); Mean Corpuscular HGB Conc 34.4 g/dL (31.8-35.4); Mean Corpuscular Hemoglobin 31.7 pg (27.0-31.2); Mean Corpuscular Volume 92.3 fl (80-94); Mean Platelet Volume 7.6 fl (7.4-10.4); Monocytes # 0.8 K/mm3 (0.1-1.0); Monocytes % 10.5 % (1.7-9.3); Neutrophils # 6.1 K/mm3 (1.8-7.8); Neutrophils % 78.7 % (37.0-80.0); Platelet Count 188 K/mm3 (142-424); Red Blood Count 4.87 M/mm3 (4.60-6.20); Red Cell Distribution Width 13.6 % (11.5-17.5); White Blood Count 7.7 K/mm3 (4.8-10.8)
[2021-11-21 23:18] LABS: Strep Scrn Group A (Rapid) Negative (Negative)
[2021-11-21 23:19] LABS: Monoscreen (Rapid) Negative (Negative)
[2021-11-21 23:20] LABS: Alanine Aminotransferase 31 U/L (12-78); Albumin Level 4.1 g/dl (3.5-5.0); Albumin/Globulin Ratio 1.6 (1.1-1.8); Alkaline Phosphatase 65 U/L (38-126); Anion Gap 9.8 mEq/L (5-15); Aspartate Amino Transferase 36 U/L (17-59); Bilirubin,Total 0.3 mg/dl (0.2-1.3); Blood Urea Nitrogen 12 mg/dl (9-20); Calcium 9.3 mg/dl (8.4-10.2); Carbon Dioxide 27 mmol/L (22.0-30.0); Chloride 104 mmol/L (98-107); Creatinine Clearance Estimated 68 mL/min (50-200); Estimated Glomerular Filt Rate 56 ml/min (>60); GFR (African American) 68 ML/MIN (>60); Globulin 2.6 g/dL (1.3-3.2); Glucose 104 mg/dl (74-100); Potassium 3.8 mmoL/L (3.5-5.1); Sodium 137 mmol/L (136-145); Total Protein,Serum 6.7 g/dl (6.3-8.2)
[2021-11-21 23:23] LABS: Coronavirus 19, PCR Detected (NotDetected)
[2021-11-21 23:25] LABS: C-Reactive Protein 11.9 mg/L (0-4)
--- NOTE | 2021-11-21 23:32 | HMH.EDFEV ---
ED Disposition Clinical Impression: COVID-19 Disposition: Home, Self-Care Condition on Discharge: Good Instructions: DI for COVID-19 (Suspected or Confirmed ) Additional Instructions: use meds and recheck if needed Prescriptions: Molnupiravir [Molnupiravir (Eua)] 800 mg PO BID #40 cap Transmission Status: Pending to [facility] Referrals: Chaim Barcenas MD [Primary Care Provider] - - Critical Care Critical Care Time: No Attestation: On 11/21/21, the high probability of a clinically significant, sudden or life threatening deterioration of the following system(s) required my full and direct attention, intervention and personal management. The time I documented below is in addition to time spent performing reported procedures but includes the following listed in this critical care notation. Medical Decision Making - Medical Records Medical records reviewed: Yes: I reviewed the patient's medical records. - Shel[place] Inquiry Pt receiving controlled substance: No Vital Signs: 11/21/21 22:44 Temperature 99.8 F H Temperature Source Oral Pulse Rate [Right Brachial] 79 Respiratory Rate 22 Blood Pressure [Right Arm] 126/89 Blood Pressure Mean [Right Arm] 101 Blood Pressure Source [Right Arm] Automatic Cuff Blood Pressure Position [Right Arm] Sitting 02 Sat by Pulse Oximetry 96 Oxygen Delivery Method Room Air - Lab Data Lab results reviewed: Yes: I reviewed the patient's lab results. Lab Results 11/21/21 22:56: Group A Strep Rapid Negative 11/21/21 22:56: SARS-CoV-2 (PCR) Detected A, Influenza A Untype (PCR) Not detected, Influenza Type B (PCR) Not detected 11/21/21 23:02: WBC 7.7, RBC 4.87, Hgb 15.5, Hct 45.0, MCV 92.3, MCH 31.7 H, MCHC 34.4, RDW 13.6, Plt Count 188, MPV 7.6, Neut % (Auto) 78.7, Lymph % (Auto) 7.2 L, [place] % (Auto) 10.5 H, Eos % (Auto) 1.7, Baso % (Auto) 1.9, Neut # (Auto) 6.1, Lymph # (Auto) 0.6 L, [place] # (Auto) 0.8, Eos # (Auto) 0.1, Baso # (Auto) 0.1, ESR 10 11/21/21 23:02: Sodium 137, Potassium 3.8, Chloride 104, Carbon Dioxide 27, Anion Gap 9.8, BUN 12, Creatinine 1.30 H, Estimated Creat Clear 68, Estimated GFR 56 L, Est GFR ( Amer) 68, Glucose 104 H, Calcium 9.3, Total Bilirubin 0.3, AST 36, ALT 31, Alkaline Phosphatase 65, C-Reactive Protein 11.9 H, Total Protein 6.7, Albumin 4.1, Globulin 2.6, Albumin/Globulin Ratio 1.6 11/21/21 23:02: Monoscreen Negative Result diagrams: 11/21/21 23:02 11/21/21 23:02 Orders (Tests/Meds): ED MEDICATIONS Generic Name Dose Route Start Last Admin Trade Name Freq PRN Reason Stop Dose Admin Sodium Chloride 1,000 mls @ 999 mls/hr 11/21/21 23:00 11/21/21 23:03 Sod Chlor 0.9% 1000ml Bag IV 11/22/21 00:00 999 mls/hr .Q1H1M GINGER Administration Discontinued Medications Generic Name Dose Route Start Last Admin Trade Name Freq PRN Reason Stop Dose Admin Ketorolac Tromethamine 30 mg 11/21/21 22:55 11/21/21 23:03 Ketorolac 30mg/Ml Vial IV 11/21/21 22:56 30 mg ONCE ONE Administration Methylprednisolone Sodium Succinate 125 mg 11/21/21 22:55 11/21/21 23:03 Methylprednisolone Sod Succ 125mg Vial IV 11/21/21 22:56 125 mg ONCE ONE Administration ORDERS Category Date Time Status Strep Screen Confirmation Stat Micro 11/21/21 22:56 Received - Radiology Data #1 Image(s): Chest Image Reviewed: Yes I have reviewed radiologist's interpretation Preliminary Findings: Normal/NAD Medical Decision Narrative: has covid-19 and stable labs and xray will treat with antiviral Fever HPI - General Chief Complaint: Fever Stated Complaint: fever of 104.8 Time Seen by Provider: 11/21/21 23:32 Mode of Arrival: Family Vehicle Source of Information: Patient, Medical Record Limitations: No Limitations Description of Symptoms (Recalled from ER Triage Doc. by RN): began having congestion yesterday, along with non-productive cough (except first thing in the am). states he has just felt poorly over the cours
[2021-11-21 23:50] LABS: Erythrocyte Sedimentation Rate 10 mm/hr (0-20)
[2021-11-22 00:05] VITALS: BP 127/89; PULSE 78; RESP 19; TEMP 36.8; O2SAT 98
== END 2021-11-22 00:17 | disposition home or self-care (01) ==
PROVIDERS: Emergency Provider Emergency Medicine; PCP Emergency Medicine
DX: U07.1 COVID-19 (principal)
CPT/HCPCS: 71046; 80053; 85025; 85651; 86140; 86318; 87430; C9803; U0003; U0005

== ENCOUNTER 2021-12-15 13:26 | Emergency (ER) | payer MEDICAID, SELFPAY ==
[2021-12-15 14:43] VITALS: BP 151/93; PULSE 60; RESP 16; TEMP 36.6; O2SAT 98; BMI 25.1
--- NOTE | 2021-12-15 15:16 | HMH.EDUTC ---
[facility] Disposition Clinical Impression: Skin problem Disposition: Home, Self-Care Condition on Discharge: Good Instructions: DI for Impetigo, Doxycycline, Mupirocin Additional Instructions: Make sure to keep area clean and dry Wash hands after applying topical medication FOllow up with your Family Doctor if no improvement or any worsening of symptoms Return if needed Straight ER if any life threatening symptoms Prescriptions: Doxycycline Monohydrate [Doxycycline [place] 100mg Tab] 100 mg PO BID 7 Days #14 tab Transmission Status: Pending to [facility] Mupirocin Calcium [Mupirocin 2% Cream 15gm] 1 applicatio TP TID 10 Days #15 gm Transmission Status: Pending to [facility] Referrals: Chaim Barcenas MD [Primary Care Provider] - As needed Time of Disposition: 15:27 Medical Decision Making - Shelton Inquiry Pt receiving controlled substance: No Shel[place] was queried for this patient: No Vital Signs: 12/15/21 14:43 Temperature 97.9 F Temperature Source Oral Pulse Rate [Left] 60 Respiratory Rate 16 Blood Pressure [Right Arm] 151/93 H Blood Pressure Mean [Right Arm] 112 02 Sat by Pulse Oximetry 98 Medical Decision Narrative: Daughters culture viewed and discussed with pharmacy will start on Doxy and Mupirocin and have them follow up with PCP if no improvement [facility] HPI - General Stated complaint: skin rash Time Seen by Provider: 12/15/21 15:16 Mode of Arrival: Ambulatory Source of Information: Patient Limitations: No Limitations Description of Symptoms (Recalled from Triage Doc. by RN): patient comes in with complaints of skin rash possibly impetigo. symptoms began thursday HEENT Symptoms (Recalled from RN notes): No Resp Symptoms (Recalled from RN notes): No Skin Symptoms (Recalled from RN notes): Yes MS Symptoms (Recalled from RN notes): No Functional Status (Recalled from RN notes): n/a - History of Present Illness Provider Complaint: Patient states that he was around daughter that has rash that occurred after she got back from [place] and [facility] States that she had a culture done and they wanted to see what it showed and get treated - Related Data Home Medications Medication Instructions Recorded Confirmed testosterone 75 mg implant pellet 75 mg [place] .3x ayear each 02/14/19 09/23/21 Atorvastatin Calcium [Lipitor 10mg See Rx Instructions .ROUTE .COMPLEX 12/15/21 12/15/21 Tab] Oxycodone HCl/Acetaminophen 1 tab PO TID 12/15/21 12/15/21 [Oxycodone-Acetaminophn 7.5-325] Pantoprazole Sodium See Rx Instructions .ROUTE .COMPLEX 12/15/21 12/15/21 bisoproloL fumarate [Bisoprolol See Rx Instructions .ROUTE .COMPLEX 12/15/21 12/15/21 Fumarate] lisinopriL [Lisinopril] See Rx Instructions .ROUTE .COMPLEX 12/15/21 12/15/21 Previous Rx's Medication Instructions Recorded loratadine 10 mg tablet See Rx Instructions .ROUTE 07/31/21 .COMPLEX #90 tab Albuterol Sulfate [Albuterol 6.7 gm IH Q4-6H PRN 14 Days #1 each 08/04/21 Sulfate Hfa] Fluticasone Propionate [Flonase 1 spr NS DAILY 7 Days #9.9 ml 08/04/21 50mcg nasal spray 16gm] Molnupiravir [Molnupiravir (Eua)] 800 mg PO BID #40 cap 11/22/21 Doxycycline Monohydrate 100 mg PO BID 7 Days #14 tab 12/15/21 [Doxycycline [place] 100mg Tab] Mupirocin Calcium [Mupirocin 2% 1 applicatio TP TID 10 Days #15 gm 12/15/21 Cream 15gm] Allergies Allergy/AdvReac Type Severity Reaction Status Date / Time No Known Allergies Allergy Verified 12/15/21 14:45 - Worker's Comp Is this a Worker's Comp case?: No [facility] History - Hepatitis A Screen Attestation statement:: This patient has been screened for Hepatitis A risk factors. I have reviewed the patient's past medical history: Yes Medical History: Reports:: Gastroesophageal Reflux Disease(GERD), Hyperlipidemia, Hypertension Denies:: Cancer, Diabetes Mellitus Type 1, Diabetes Mellitus Type 2, Internal Pacemaker, MRSA, Seizures Other Medical History: Reports: Other
[2021-12-15 15:41] VITALS: BP 151/93; PULSE 60; RESP 16; TEMP 36.6
== END 2021-12-15 15:42 | disposition home or self-care (01) ==
PROVIDERS: Emergency Provider Nurse Practitioner; PCP Emergency Medicine
DX: L98.9 Disorder of the skin and subcutaneous tissue, unspecified (principal)
CPT/HCPCS: 99212; G0463

== ENCOUNTER → 2021-12-24 15:15 | Outpatient (CLI) | payer MEDICAID, SELFPAY ==
[2021-12-24 15:53] LABS: Amphetamine/Metha Screen,Urine Negative ng/ml (<1000)
[2021-12-24 15:54] LABS: Barbiturates Screen,Urine Negative ng/ml (<200)
[2021-12-24 15:55] LABS: Benzodiazepines Screen,Urine Negative ng/ml (<200)
[2021-12-24 15:56] LABS: Cannabinoid Screen,Urine Negative ng/ml (<50)
[2021-12-24 15:57] LABS: Cocaine Screen,Urine Negative ng/ml (<300); Methadone Screen,Urine Negative ng/ml (<300)
[2021-12-24 15:58] LABS: Opiate Screen,Urine Negative ng/ml (<300)
[2021-12-24 15:59] LABS: Phencyclidine Screen,Urine Negative ng/ml (<25)
== END ==
PROVIDERS: PCP Emergency Medicine; Visit Provider Emergency Medicine
DX: Z79.899 Other long term (current) drug therapy (principal)
CPT/HCPCS: 80305

== ENCOUNTER → 2022-02-03 13:30 | Outpatient (CLI) | payer MEDICAID, SELFPAY | PROVIDERS: PCP Student in an Organized Health Care Education/Training Program; Visit Provider Student in an Organized Health Care Education/Training Program | DX: J02.9 Acute pharyngitis, unspecified (principal) | CPT/HCPCS: 87070; 87880 ==

== ENCOUNTER → 2022-02-26 14:08 | Outpatient (CLI) | payer MEDICAID, SELFPAY ==
[2022-02-26 18:49] LABS: Amphetamine/Metha Screen,Urine Negative ng/ml (<1000); Benzodiazepines Screen,Urine Negative ng/ml (<200)
[2022-02-26 18:50] LABS: Barbiturates Screen,Urine Negative ng/ml (<200)
[2022-02-26 18:51] LABS: Cannabinoid Screen,Urine Negative ng/ml (<50); Cocaine Screen,Urine Negative ng/ml (<300)
[2022-02-26 18:52] LABS: Methadone Screen,Urine Negative ng/ml (<300); Opiate Screen,Urine Negative ng/ml (<300)
[2022-02-26 18:53] LABS: Phencyclidine Screen,Urine Negative ng/ml (<25)
[2022-02-26 19:24] LABS: Anion Gap 14.9 mEq/L (5-15); Blood Urea Nitrogen 10 mg/dl (9-20); Calcium 9.1 mg/dl (8.4-10.2); Carbon Dioxide 31 mmol/L (22.0-30.0); Chloride 100 mmol/L (98-107); Estimated Glomerular Filt Rate 76 ml/min (>60); GFR (African American) 92 ML/MIN (>60); Glucose 67 mg/dl (74-100); Potassium 3.9 mmoL/L (3.5-5.1); Sodium 142 mmol/L (136-145)
== END ==
PROVIDERS: PCP Emergency Medicine; Visit Provider Emergency Medicine
DX: I10 Essential (primary) hypertension (principal); G89.29 Other chronic pain
CPT/HCPCS: 80048; 80305

== ENCOUNTER → 2022-03-12 08:06 | Outpatient (CLI) | payer MEDICAID, SELFPAY ==
--- NOTE | 2022-03-12 08:10 | CA_ITS ---
FINAL REPORT CLINICAL HISTORY: hypertension FINDINGS: DOPPLER RENAL VESSELS Intrarenal resistive indices on the right are 0.60, normal . Intrarenal resistive indices on the left are 0.68, normal . Right main renal artery systolic velocity: 142 cm/sec. Aortic-right renal artery flow velocity ratio: 1.7 COMMENT: No evidence of hemodynamically significant renal artery stenosis . Left main renal artery systolic velocity: 139 cm/sec. Aortic-left renal artery flow velocity ratio: 1.4 COMMENT: No evidence of hemodynamically significant renal artery stenosis . CONCLUSION: No evidence of hemodynamically significant renal artery stenosis CTA or gadolinium-enhanced MR may be considered as a more sensitive exam. Alternatively noncontrast MRI may be considered for assessing main renal arteries for stenosis as a more sensitive exam if the patient has renal insufficiency. Reviewed, Interpreted and Dictated by Ray Loza MD Transcribed by Meri Mendoza Authenticated and [facility]
== END ==
PROVIDERS: PCP Emergency Medicine; Visit Provider Emergency Medicine
DX: I10 Essential (primary) hypertension (principal)
CPT/HCPCS: 93976

== ENCOUNTER 2022-04-12 13:21 | Emergency (ER) | payer MEDICAID, SELFPAY ==
[2022-04-12 13:35] VITALS: BP 145/102; PULSE 57; RESP 21; TEMP 36.7; O2SAT 96; BMI 25.8
--- NOTE | 2022-04-12 14:07 | EXP.UTC ---
Discharge Plan Disposition Patient Disposition: Home, Self-Care Condition: Good Prescriptions Prescriptions: New azithromycin [azithromycin] 250 mg tablet 250 mg PO DIRECTED Qty: 6 0RF Rx Instructions: Take two (2) tablets on day #1, then one (1) tablet day #2 thru #5 No Action Testopel 75 mg pellet 75 mg [place] .3x ayear meclizine 25 mg tablet 25 mg PO DAILY PRN (Reason: motion sickness) Qty: 30 0RF lisinopril 40 mg tablet 40 mg PO QAM Qty: 30 2RF hydrochlorothiazide 12.5 mg tablet 12.5 mg PO DAILY Qty: 30 2RF amlodipine [Norvasc] 2.5 mg tablet 2.5 mg PO DAILY Qty: 30 2RF oxycodone-acetaminophen [Percocet] 10-325 mg tablet 1 tab PO TID Qty: 90 0RF loratadine 10 mg tablet See Rx Instructions .ROUTE .COMPLEX Qty: 90 0RF Dose Instruction: TAKE 1 TABLET BY MOUTH ONCE DAILY FOR ALLERGIES Rx Instructions: TAKE 1 TABLET BY MOUTH ONCE DAILY FOR ALLERGIES bisoprolol fumarate 10 mg tablet See Rx Instructions .ROUTE .COMPLEX Qty: 90 0RF Dose Instruction: TAKE 1 TABLET BY MOUTH ONCE DAILY Rx Instructions: TAKE 1 TABLET BY MOUTH ONCE DAILY pantoprazole 40 mg tablet,delayed release (DR/EC) See Rx Instructions .ROUTE .COMPLEX Qty: 90 0RF Dose Instruction: TAKE 1 TABLET BY MOUTH ONCE DAILY Rx Instructions: TAKE 1 TABLET BY MOUTH ONCE DAILY fluticasone propionate 120 SPR/BOT bottle 1 spr NS DAILY 7 Days Qty: 9.9 0RF albuterol sulfate 8.5 GM HFA aerosol inhaler 6.7 gm IH Q4-6H PRN (Reason: Wheezing) 14 Days Qty: 1 0RF atorvastatin 10 MG tablet See Rx Instructions .Route .COMPLEX Rx Instructions: TAKE 1 TABLET BY MOUTH ONCE DAILY Referrals Follow up/Referrals: Chaim Barcenas MD [Primary Care Provider] - See instructions Activity Restrictions/Add. Instructions Additional Instructions/Restrictions: Start antibiotic today. Be sure to complete entire prescription even if feeling better Tylenol and ibuprofen as needed for pain or fever Humidifier/vaporizer/hot steamy shower Follow-up with primary care tomorrow. Follow-up immediately in the ER of the [facility] for new or worsening symptoms or no noticeable improvement over the next 48-72 hours. Stop smoking Clinical Impressions Clinical Impression: Bronchitis Instructions Patient Instructions: Acute Bronchitis Discharge ED Provider: Hakeem ([facility])Khloe [facility] HPI General Stated complaint: lung pain, congestion, weak Mode of Arrival: Ambulatory Source of Information: Patient Limitations: No Limitations Time Seen by Provider: 04/12/22 14:07 Description of Symptoms (Recalled from Triage Doc. by RN): PATIENT C/O FATIGUE, PRODUCTIVE COUGH, WEAKNESS AND FEVER X 2 WEEKS. EXPOSURE TO FLU HEENT Symptoms (Recalled from RN notes): No Resp Symptoms (Recalled from RN notes): Yes Skin Symptoms (Recalled from RN notes): No MS Symptoms (Recalled from RN notes): No Functional Status (Recalled from RN notes): WNL History of Present Illness Provider Complaint: 61yr old male presents for fatigue, coughing up thick sputum with dark green/black specks, weakness and fever for 2 weeks but getting worse. has been exposed to flu Related Data Home Medications Medication Instructions Recorded Confirmed testosterone 75 mg implant pellet 75 mg implant .3x ayear Supplement 02/14/19 03/12/22 (Testopel) atorvastatin 10 mg tablet See Rx Instructions .Route 12/15/21 03/12/22 .COMPLEX Cholesterol Previous Rx's Medication Instructions Recorded loratadine 10 mg tablet See Rx Instructions .Route 07/31/21 .COMPLEX #90 tabs albuterol sulfate 90 mcg/actuation 6.7 gm inhalation Q4-6H PRN 08/04/21 aerosol inhaler Wheezing 14 days #1 ea fluticasone propionate 50 1 spr intranasal DAILY 7 days #9.9 08/04/21 mcg/actuation nasal mL spray,suspension bisoprolol fumarate 10 mg tablet See Rx Instructions .Route 01/31/22 .COMPLEX #90 tabs meclizine 25 mg tablet 25 mg
[2022-04-12 14:24] VITALS: BP 145/102; PULSE 57; RESP 21; TEMP 36.7; O2SAT 96
[2022-04-12 14:26] LABS: Coronavirus 19, PCR Not Detected (NotDetected); Influenza A, PCR Not Detected (NotDetected); Influenza B, PCR Not Detected (NotDetected)
== END 2022-04-12 14:30 | disposition home or self-care (01) ==
PROVIDERS: Emergency Provider Nurse Practitioner Family; PCP Emergency Medicine
DX: J40 Bronchitis, not specified as acute or chronic (principal)
CPT/HCPCS: 96372; 99212; C9803; G0463; U0003; U0005

== ENCOUNTER → 2022-04-14 21:27 | Outpatient (CLI) | payer MEDICAID, SELFPAY ==
[2022-04-14 19:14] LABS: Anion Gap 10.2 mEq/L (5-15); Blood Urea Nitrogen 11 mg/dl (9-20); Calcium 9.7 mg/dl (8.4-10.2); Carbon Dioxide 31 mmol/L (22.0-30.0); Chloride 106 mmol/L (98-107); Estimated Glomerular Filt Rate 76 ml/min (>60); GFR (African American) 92 ML/MIN (>60); Glucose 84 mg/dl (74-100); Potassium 5.2 mmoL/L (3.5-5.1); Sodium 142 mmol/L (136-145)
[2022-04-14 19:16] LABS: Basophils # 0.1 K/mm3 (0-0.2); Basophils % 0.7 % (0.1-2.0); Eosinophils # 0.1 K/mm3 (0.0-0.4); Eosinophils % 1.4 % (0.1-12.0); Hematocrit 46.8 % (42.0-52.0); Hemoglobin 15.4 g/dL (14.1-18.0); Lymphocytes # 2.3 K/mm3 (0.7-4.5); Mean Corpuscular HGB Conc 32.9 g/dL (31.8-35.4); Mean Corpuscular Hemoglobin 30.8 pg (27.0-31.2); Mean Corpuscular Volume 93.8 fl (80-94); Mean Platelet Volume 9.4 fl (7.4-10.4); Monocytes # 0.8 K/mm3 (0.1-1.0); Monocytes % 7.9 % (1.7-9.3); Neutrophils # 6.6 K/mm3 (1.8-7.8); Neutrophils % 67.2 % (37.0-80.0); Platelet Count 288 K/mm3 (142-424); Red Blood Count 4.99 M/mm3 (4.60-6.20); Red Cell Distribution Width 14.8 % (11.5-17.5); White Blood Count 9.8 K/mm3 (4.8-10.8)
== END ==
PROVIDERS: Visit Provider Emergency Medicine
DX: R53.1 Weakness (principal)
CPT/HCPCS: 80048; 85025

== ENCOUNTER → 2022-04-22 11:10 | Outpatient (CLI) | payer MEDICAID, SELFPAY ==
[2022-04-22 15:12] LABS: Amphetamine/Metha Screen,Urine Negative ng/ml (<1000)
[2022-04-22 15:13] LABS: Barbiturates Screen,Urine Negative ng/ml (<200)
[2022-04-22 15:14] LABS: Benzodiazepines Screen,Urine Negative ng/ml (<200)
[2022-04-22 15:15] LABS: Cannabinoid Screen,Urine Negative ng/ml (<50); Cocaine Screen,Urine Negative ng/ml (<300)
[2022-04-22 15:16] LABS: Methadone Screen,Urine Negative ng/ml (<300)
[2022-04-22 15:17] LABS: Opiate Screen,Urine Negative ng/ml (<300); Phencyclidine Screen,Urine Negative ng/ml (<25)
== END ==
PROVIDERS: PCP Emergency Medicine; Visit Provider Emergency Medicine
DX: Z79.899 Other long term (current) drug therapy (principal)
CPT/HCPCS: 80305

== ENCOUNTER → 2022-04-25 06:35 | Outpatient (CLI) | payer MEDICAID, SELFPAY ==
--- NOTE | 2022-04-25 | CA_ITS ---
APPROVED REPORT Exam: Exercise Treadmill Technologist: Bettina Zafar, Ht: 5 ft 11 in Wt: 186 lbs BSA: 2.04 m2 HR: 52 bpm BP: 144/86 mmHg Rhythm: NSR, NSSTTW abnormalities inferiorly Medical History Medical History: HTN, Hyperlipidemia Medications: Lisinopril,,,,, Potassium Chloride,,,,, Pantoprazole,,,,, Atorvastatin,,,,, PERCOCET,,,,, Albuterol,,,,, BisOPROLOL Fumarate,,,,, Meclizine,,,,, Testosterone,,,,, Amlopidine,,,,, Cardiac Risk Factors: HTN, Hyperlipidemia Stress Test Details Test: [place] HR Resting HR: 56 bpm Max Heart Rate (APMHR): 158.517693 bpm Max HR Achieved: 114 bpm Target HR (85% APMHR): 134.146352 bpm % of APMHR: 72.15 Recovery HR: 92 bpm BP Resting BP: 143/96 mmHg Max BP: 155/86 mmHg Recovery BP: 162.0/100.0 mmHg ECG Resting ECG: NSR, NSTTW abnormalities inferiorly Clinical Reason for Termination: Dyspnea Exercise duration: 12:00 min Highest Stage Achieved: Exercise capacity: 12.8 METs Stress ECG Conclusion Pt exercised total of 12 minutes, 12.8 METS. Pt experinced SOA, no CP noted. No arrhythmias noted. <1.5mm ST segment changes. Non diagnostic due to failure to reach target HR. Good exercise tolerance. Test Summary REST . . . . . . . Sitting REST . . . . . . . Standing REST 02:51 0.0 0.0 56 . 143/ 96 . . Stage 1 01:00 10.0 1.7 79 . . . . Stage 1 02:00 10.0 1.7 86 . . . . Stage 1 03:00 10.0 1.7 83 . 149/ 89 . . Stage 2 01:00 12.0 2.5 87 . . . . Stage 2 02:00 12.0 2.5 88 . . . . Stage 2 03:00 12.0 2.5 88 . 151/ 91 . . Stage 3 01:00 14.0 3.4 97 . . . . Stage 3 02:00 14.0 3.4 96 . . . . Stage 3 03:00 14.0 3.4 100 . . . . Stage 4 01:00 16.0 4.2 106 . . . . Stage 4 02:00 16.0 4.2 111 . . . . Stage 4 03:00 16.0 4.2 113 . . . Stop exercise at 12:00 RECOVERY 01:00 0.0 0.0 93 . . . . RECOVERY 02:00 0.0 0.0 75 . . . . RECOVERY 03:00 0.0 0.0 66 . . . . RECOVERY 04:00 0.0 0.0 70 . . . . RECOVERY 04:30 0.0 0.0 68 . 155/ 86 . . Electronically signed by : Feroz Shore MD 04/25/2022 18:39:55
--- NOTE | 2022-04-25 06:38 | NM_ITS ---
APPROVED REPORT Exam: Nuclear Stress Test Indication: chest pain..short of breath..fatigue Patient Location: Outpatient Stress Tech: Bettina Zafar [place] Tech:Jaki Portillo NICOLE RT(R)(N) Ht: 5 ft 11 in Wt: 185 lbs HR: 56 bpm BP: 143/96 mmHg BSA: 2.04 m2 TID: 1.02 BMI: 25.7 History: chest pain..short of breath..fatigue Procedure: Patient exercised on Israel protocol 12 minutes and sec, resting heart rate 56 bpm, resting blood pressure 143/96 mmHg, with exercise maximum heart rate achived was 114 bpm which is 72 % of the maximum predicted heart rate and blood pressure was 155/86 mmHg. Patient denied any complaint of chest pain. Patient has Good exercise capacity, achieved 12.8 METs of workload on treadmill, the blood pressure response to exercise was Adequate. Electrocardiogram Resting electrocardiogram showed sinus rhythm, with exercise there is less than 1.[address] segment depression from the baseline EKG. The EKG portion of the exercise Myoview was nondiagnostic as patient did not achieve the target heart rate. Cardiac Stress and Resting SPECT Images: Cardiac Stress and Resting SPECT images were obtained using technetium 99m Myoview 30.9 mCi stress and 10.38 mCi at rest. Gated SPECT for analysis of segmental wall motion and calculation of the ejection fraction also done. Cardiac stress and resting SPECT images were uniform myocardial activity without segmental perfusion abnormality, computer derived ejection fraction is 45% with no regional wall motion abnormality, right ventricle is normal size and contractility. Conclusion: 1. The EKG portion of the exercise Myoview was nondiagnostic as patient did not exhibit hypertrophy, patient has good exercise capacity 12.8 METs of workload present, no blood pressure response to exercise was adequate, there was no exercise-induced chest discomfort. 2. No scintigraphic evidence of reversible ischemia seen, computer derived ejection fraction 45% with no regional wall motion abnormality, right ventricle is normal size and contractility. 3. Normal exercise Myoview study at submaximal heart rate. Electronically signed by : Feroz Shore MD 04/25/2022 18:43:09
--- NOTE | 2022-04-25 07:13 | CA_ITS ---
APPROVED REPORT EXAM: Comprehensive 2D, Doppler, and color-flow Echocardiogram Business Process Analyst: Adrianna Cam CRT Ht: 5 ft 11 in Wt: 186lbs BSA: 2.04 BP: 146/100 mmHg Indications: Chest Pain, Hypertension/HDD, murmur 2D Dimensions Aortic Root 1.95 cm LA Volume 47.60 mL LA Volume Index 22.80 mL/m2 (M/F) 16-34 M-Mode Dimensions RVDd 3.84 cm (0.9-2.6) LA Diam 3.65 cm (1.9-4.0) LVDd 4.81 cm (3.5-5.7) Ao Diam 3.90 cm (2.0-3.7) LVDs 3.32 cm (3.5-5.7) IVSd 1.48 cm (0.6-1.1) PWd 0.72 cm (0.6-1.1) EF (Teich) 58.50% FS 31.00% EDV (Teich) 108.00 mL TAPSE 2.09 (<1.7) ESV (Teich) 44.80 mL LV Diastology E Decel Time 307.00 (160-240 msec) E/A Ratio 0.70 MED E' 3.10 (< 7 cm/sec) MED A' 6.00 cm/s E'/MED E' Ratio 18.23 (>14) LAT E' 5.50 (<10 cm/sec) LAT A' 7.60 cm/s E/LAT E' Ratio 10.27 (>14) Aortic Valve AO Peak GR. 7.70 mmHg Mitral Valve MV A Velocity 80.00 (40-130 cm/s) E/A Ratio 0.70 MV Decel. Time 307.00 (160-240 ms) Pulmonary Valve PV Peak Velocity 123.00 (50-150 cm/s) Tricuspid Valve TR P. Velocity 281.00 cm/s RAP Estimate 10.00 mmHg RVSP 41.50 mmHg Left Ventricle Left atrium is mildly enlarged, left ventricle is normal size, mild concentric left ventricular hypertrophy, estimated ejection fraction 55% with no regional wall motion abnormality, grade 1 diastolic dysfunction seen without tissue Doppler evidence of raise left atrial pressure. Right Ventricle Right atrium and right ventricle are mildly enlarged with normal contractility. Aortic Valve Aortic valve is minimally thickened and fibrosed there is no aortic stenosis or aortic insufficiency. Mitral Valve Mitral valve is grossly normal, there is trace mitral regurgitation. Tricuspid Valve Tricuspid grossly normal, there is trace tricuspid regurgitation, tricuspid regurgitation jet velocity is inadequate for calculation of the right ventricular systolic pressure. Pulmonic Valve Pulmonic valve poorly visualized. Great Vessels Aortic root is normal size. Inferior vena cava is poorly visualized. Pericardium No significant pericardial effusion noted. Conclusion 1. Mild biatrial enlargement, normal left ventricular size, mild concentric left ventricular hypertrophy, estimated ejection fraction 55% with no regional wall motion abnormality, grade 1 diastolic dysfunction seen without tissue Doppler evidence of raised left atrial pressure. 2. Mildly enlarged right ventricle with normal contractility. 3. Trace mitral and tricuspid regurgitation. 4. No significant pericardial effusion. 5. Inferior vena cava is poorly visualized. Electronically signed by : Feroz Shore MD 04/25/2022 19:01:24
== END ==
PROVIDERS: PCP Emergency Medicine; Visit Provider Emergency Medicine
DX: R07.9 Chest pain, unspecified (principal); R01.1 Cardiac murmur, unspecified
CPT/HCPCS: 78452; 93017; 93306; A9502

== ENCOUNTER → 2022-05-21 09:45 | Outpatient (CLI) | payer MEDICAID, SELFPAY ==
[2022-05-21 10:34] LABS: Basophils # 0.1 K/mm3 (0-0.2); Basophils % 1.6 % (0.1-2.0); Eosinophils # 0.2 K/mm3 (0.0-0.4); Eosinophils % 3.3 % (0.1-12.0); Hematocrit 47.1 % (42.0-52.0); Hemoglobin 15.7 g/dL (14.1-18.0); Lymphocytes # 1.6 K/mm3 (0.7-4.5); Lymphocytes % 29.6 % (10-50); Mean Corpuscular HGB Conc 33.2 g/dL (31.8-35.4); Mean Corpuscular Hemoglobin 31.3 pg (27.0-31.2); Mean Platelet Volume 8.3 fl (7.4-10.4); Monocytes # 0.5 K/mm3 (0.1-1.0); Monocytes % 8.8 % (1.7-9.3); Neutrophils # 3.1 K/mm3 (1.8-7.8); Neutrophils % 56.7 % (37.0-80.0); Platelet Count 340 K/mm3 (142-424); Red Blood Count 5.01 M/mm3 (4.60-6.20); Red Cell Distribution Width 13.8 % (11.5-17.5); White Blood Count 5.4 K/mm3 (4.8-10.8)
[2022-05-21 10:44] LABS: Chloride 105 mmol/L (98-107); Potassium 3.7 mmoL/L (3.5-5.1); Sodium 142 mmol/L (136-145)
[2022-05-21 10:46] LABS: Bilirubin,Unconjugated 0.9 mg/dL (0.0-1.1); Blood Urea Nitrogen 12 mg/dl (9-20); Estimated Glomerular Filt Rate 76 ml/min (>60); GFR (African American) 92 ML/MIN (>60)
[2022-05-21 10:47] LABS: Alanine Aminotransferase 26 U/L (12-78); Albumin Level 4.1 g/dl (3.5-5.0); Alkaline Phosphatase 53 U/L (38-126); Anion Gap 9.7 mEq/L (5-15); Aspartate Amino Transferase 34 U/L (17-59); Bilirubin,Direct 0.1 mg/dl (0.0-0.4); Bilirubin,Indirect 0.9 mg/dL (0.0-0.9); Calcium 9.1 mg/dl (8.4-10.2); Carbon Dioxide 31 mmol/L (22.0-30.0); Chol/HDL Ratio 3.1 (1-3.5); Cholesterol 144 mg/dl (140-200); Glucose 106 mg/dl (74-100); HDL Cholesterol 47 mg/dl (40-60); Magnesium 1.9 mg/dl (1.6-2.3); Total Protein,Serum 6.8 g/dl (6.3-8.2); Triglycerides 72 mg/dl (30-150); VLDL Cholesterol 14 mg/dL (0-40)
[2022-05-21 10:59] LABS: Direct LDL Cholesterol 74.95 mg/dL (100-129)
[2022-05-21 11:19] LABS: Thyroid Stimulating Hormone 1.49 uIU/mL (0.465-4.68)
== END ==
PROVIDERS: PCP Emergency Medicine; Visit Provider Nurse Practitioner
DX: R06.00 Dyspnea, unspecified (principal); E78.5 Hyperlipidemia, unspecified; I10 Essential (primary) hypertension; R53.1 Weakness
CPT/HCPCS: 36415; 80048; 80061; 80076; 83735; 84439; 84443; 85025

== ENCOUNTER → 2022-06-24 15:51 | Outpatient (CLI) | payer MEDICAID, SELFPAY ==
[2022-06-24 16:16] LABS: Amphetamine/Metha Screen,Urine Negative ng/ml (<1000)
[2022-06-24 16:17] LABS: Barbiturates Screen,Urine Negative ng/ml (<200); Benzodiazepines Screen,Urine Negative ng/ml (<200)
[2022-06-24 16:18] LABS: Cannabinoid Screen,Urine Negative ng/ml (<50); Cocaine Screen,Urine Negative ng/ml (<300)
[2022-06-24 16:20] LABS: Methadone Screen,Urine Negative ng/ml (<300)
[2022-06-24 16:21] LABS: Opiate Screen,Urine Negative ng/ml (<300); Phencyclidine Screen,Urine Negative ng/ml (<25)
== END ==
PROVIDERS: PCP Emergency Medicine; Visit Provider Emergency Medicine
DX: M96.1 Postlaminectomy syndrome, not elsewhere classified (principal)
CPT/HCPCS: 80305

== ENCOUNTER 2022-07-01 08:41 | Day surgery (SDC) | payer MEDICAID, SELFPAY ==
[2022-07-01 09:23] VITALS: BP 130/78; PULSE 57; RESP 18; TEMP 36.6; O2SAT 94; BMI 25.7
--- NOTE | 2022-07-01 09:29 | HMH.SCOPE ---
Procedure: Date: 07/01/22 Patient Date of :: 1960 Procedure Performed:: Esophagogastroduodenoscopy with biopsy Colonoscopy Indications:: History of colon polyps Gastroesophageal reflux History of distal esophageal ulceration Note: The patient is status post esophagogastroduodenoscopy/colonoscopy in April 2019. A small distal esophageal ulceration was noted. Sigmoid diverticulosis, hemorrhoids, and BPH also noted. He did have a tubular adenoma excised at 35 cm. Performing Provider:: Lazaro Garcias MD Referring Provider:: . Sedation:: Monitored anesthesia care Procedure:: After informed consent was obtained the patient was taken to the endoscopy suite. Sedation ensued after the patient was transferred to the left lateral decubitus position. Pulse, blood pressure, and oxygen saturation were monitored throughout the procedure. The endoscope was advanced beyond the duodenal bulb. Retroflexion within the gastric lumen was accomplished. The gastroscope was carefully removed. Digital rectal exam revealed no significant abnormality. The colonoscope was placed in position. The entire colon was evaluated. The colonoscope was carefully removed and the patient was transferred to recovery in stable condition. Please see findings and specimens below for detail. Findings:: Gastroesophageal junction at 40 cm Small sliding hiatal hernia Mild distal gastritis Bowel preparation fair Fairly significant lack of relaxation (specifically sigmoid) Significant sigmoid tortuosity Unchanged scattered diverticulosis (mostly sigmoid) Hemorrhoidal cushions Unchanged prostatic enlargement with no definitive mass lesion Specimens:: Antral biopsy Recommendations:: Follow-up pathology Repeat colonoscopy in 3-5 years secondary to history of polyps, lack of relaxation, and tortuosity. Complications:: No immediate Estimated blood obtained (mL): 1
[2022-07-01 09:38] VITALS: O2SAT 98
--- NOTE | 2022-07-01 09:53 | P.PN_ITS ---
[facility] Disclaimer: The information contained in this section may have been updated after the patient was seen, as this information can be updated by other users. Medical History Depression Hyperlipidemia Hypertension Surgical History History of hip surgery History of neck surgery History of tonsillectomy Family History Other Colon cancer Family history of melanoma Family history of pancreatic cancer Heart disease Social History Smoking Status: Never smoker alcohol intake: current substance use type: denies use current occupational status: employed Travel in the last 8 weeks: None household members: other housing: house current occupation: self empl caffeine: Yes [facility] Anesthesia Checklist Patient Identification Patient Identification: Arm Band Structural Data Admitted From: Home Planned Operative Procedure/s: EGD/Colonoscopy Consent for Planned Operative Procedure(s) Verified: Yes Verified Documents: Surgical Consent and History and Physical NPO Status Verified Time NPO: 00:00 Additional verifications Anesthesia Reactions: No Airway Assessment C-Spine Mobility Assessed: Yes TMJ Mobility Assessed: Yes Dentition: Good Dentition Neurological Assessment Level of Consciousness: Awake and Alert Anesthesia Plan Anesthesia Risk discussed: Yes Anesthesia Plan: Verified ASA Class: II Anesthesia Type: MAC
[2022-07-01 10:24] VITALS: BP 112/72; PULSE 68; RESP 16; TEMP 36.5; O2SAT 94
[2022-07-01 10:34] VITALS: BP 109/72; PULSE 64; RESP 17; O2SAT 95
[2022-07-01 10:44] VITALS: BP 105/59; PULSE 63; RESP 17; O2SAT 97
[2022-07-01 10:54] VITALS: BP 111/75; PULSE 57; RESP 16; TEMP 36.4; O2SAT 95
== END 2022-07-01 10:54 | disposition home or self-care (01) ==
PROVIDERS: PCP Emergency Medicine; Visit Provider Surgery
PROC: 0DJ08ZZ Inspection of Upper Intestinal Tract, Via Natural or Artificial Opening Endoscopic (ICD-10-PCS; CPT 43235; principal; 2022-07-01 09:30)
DX: Z12.11 Encounter for screening for malignant neoplasm of colon (principal); K21.9 Gastro-esophageal reflux disease without esophagitis; Z86.010 Personal history of colon polyps; K44.9 Diaphragmatic hernia without obstruction or gangrene
CPT/HCPCS: 43239; 45378

== ENCOUNTER → 2022-08-19 11:15 | Outpatient (CLI) | payer MEDICAID, SELFPAY ==
[2022-08-19 14:13] LABS: Amphetamine/Metha Screen,Urine Negative ng/ml (<1000)
[2022-08-19 14:14] LABS: Barbiturates Screen,Urine Negative ng/ml (<200); Benzodiazepines Screen,Urine Negative ng/ml (<200)
[2022-08-19 14:15] LABS: Cannabinoid Screen,Urine Negative ng/ml (<50)
[2022-08-19 14:16] LABS: Cocaine Screen,Urine Negative ng/ml (<300); Methadone Screen,Urine Negative ng/ml (<300)
[2022-08-19 14:18] LABS: Opiate Screen,Urine Negative ng/ml (<300); Phencyclidine Screen,Urine Negative ng/ml (<25)
== END ==
PROVIDERS: PCP Emergency Medicine; Visit Provider Emergency Medicine
DX: G89.29 Other chronic pain (principal)
CPT/HCPCS: 80305

== ENCOUNTER → 2022-08-26 12:59 | Outpatient (CLI) | payer MEDICAID, SELFPAY ==
--- NOTE | 2022-08-26 12:59 | CA_ITS ---
FINAL REPORT CLINICAL HISTORY: BRUIT,DIZZINESS,HTN FINDINGS: An ultrasound of the carotid arteries was performed. Duplex Doppler evaluation with spectral analysis was performed. The peak systolic velocity of the right common carotid artery is 118 cm/s. The peak systolic velocity of the right internal carotid artery is 95 cm/s and end diastolic velocity 31 cm/s. A mild amount of plaque is present. The right external carotid artery is patent. The right vertebral artery is patent with antegrade flow. ICA/CCA ratio: 0.8 The peak systolic velocity of the left common carotid artery is 122 cm/s. The peak systolic velocity of the left internal carotid artery is 108 cm/s and end diastolic velocity 28 cm/s. A mild amount of plaque is present. The left external carotid artery is patent. The left vertebral artery is patent with antegrade flow. ICA/CCA ratio: 0.9 Bilateral patent vertebral arteries with antegrade flow. IMPRESSION: Less than 50% bilateral carotid stenosis. Reviewed, Interpreted and Dictated by Ian Nieves III, MD Transcribed by Dat Colbert Authenticated and [facility]
== END ==
PROVIDERS: PCP Emergency Medicine; Visit Provider Nurse Practitioner Family
DX: R09.89 Other specified symptoms and signs involving the circulatory and respiratory systems (principal)
CPT/HCPCS: 93880

== ENCOUNTER → 2022-10-07 23:12 | Outpatient (CLI) | payer MEDICAID, SELFPAY ==
[2022-10-07 21:31] LABS: Amphetamine/Metha Screen,Urine Negative ng/ml (<1000)
[2022-10-07 21:32] LABS: Barbiturates Screen,Urine Negative ng/ml (<200); Benzodiazepines Screen,Urine Negative ng/ml (<200)
[2022-10-07 21:33] LABS: Cannabinoid Screen,Urine Positive ng/ml (<50); Cocaine Screen,Urine Negative ng/ml (<300)
[2022-10-07 21:34] LABS: Methadone Screen,Urine Negative ng/ml (<300)
[2022-10-07 21:35] LABS: Opiate Screen,Urine Negative ng/ml (<300); Phencyclidine Screen,Urine Negative ng/ml (<25)
== END ==
PROVIDERS: PCP Emergency Medicine; Visit Provider Emergency Medicine
DX: Z79.899 Other long term (current) drug therapy (principal)
CPT/HCPCS: 80305

== ENCOUNTER → 2022-12-03 13:00 | Outpatient (CLI) | payer MEDICAID, SELFPAY ==
[2022-12-03 15:31] LABS: Amphetamine/Metha Screen,Urine Negative ng/ml (<1000); Barbiturates Screen,Urine Negative ng/ml (<200); Benzodiazepines Screen,Urine Negative ng/ml (<200); Cocaine Screen,Urine Negative ng/ml (<300); Phencyclidine Screen,Urine Negative ng/ml (<25)
[2022-12-03 16:05] LABS: Cannabinoid Screen,Urine Positive ng/ml (<50); Methadone Screen,Urine Negative ng/ml (<300)
[2022-12-03 16:06] LABS: Opiate Screen,Urine Negative ng/ml (<300)
== END ==
PROVIDERS: PCP Emergency Medicine; Visit Provider Emergency Medicine
DX: Z79.899 Other long term (current) drug therapy (principal)
CPT/HCPCS: 80305

== ENCOUNTER 2023-01-02 11:34 | Outpatient (CLI) | payer MEDICAID, SELFPAY ==
[2023-01-02 11:39] VITALS: BMI 24.1
[2023-01-02 12:10] VITALS: BP 113/68; PULSE 76; RESP 18; O2SAT 99
[2023-01-02 12:11] LABS: Anion Gap 12.9 mEq/L (5-15); Blood Urea Nitrogen 20 mg/dl (9-20); Calcium 9.8 mg/dl (8.4-10.2); Carbon Dioxide 31 mmol/L (22.0-30.0); Chloride 100 mmol/L (98-107); Creatinine Clearance Estimated 60 mL/min (50-200); Estimated Glomerular Filt Rate 51 ml/min (>60); GFR (African American) 62 ML/MIN (>60); Glucose 101 mg/dl (74-100); Potassium 3.9 mmoL/L (3.5-5.1); Sodium 140 mmol/L (136-145)
[2023-01-02 13:10] VITALS: BP 128/71; PULSE 81; RESP 18; O2SAT 99
== END 2023-01-02 13:15 | disposition home or self-care (01) ==
LOC: INF 11:35
PROVIDERS: PCP Emergency Medicine; Visit Provider Emergency Medicine
DX: E86.0 Dehydration (principal)
CPT/HCPCS: 80048; 96360

== ENCOUNTER 2023-01-06 22:57 | Emergency (ER) | payer MEDICAID, SELFPAY ==
[2023-01-06 23:00] VITALS: BP 141/86; PULSE 61; RESP 18; TEMP 36.4; O2SAT 96; BMI 25.1
--- NOTE | 2023-01-06 23:46 | HMH.EDGENADL ---
Discharge Plan Disposition Patient Disposition: Home, Self-Care Condition: Good Prescriptions Prescriptions: No Action Testopel 75 mg pellet 75 mg [place] .3x ayear spironolactone [Aldactone] 25 mg tablet 25 mg PO DAILY Qty: 90 1RF valsartan-hydrochlorothiazide 160-25 mg tablet 1 tab PO DAILY Qty: 90 1RF pantoprazole 40 mg tablet,delayed release (DR/EC) See Rx Instructions .ROUTE .COMPLEX Qty: 90 3RF Rx Instructions: TAKE 1 TABLET BY MOUTH ONCE DAILY amlodipine 5 mg tablet See Rx Instructions .ROUTE .COMPLEX Qty: 90 3RF Dose Instruction: TAKE 1 TABLET BY MOUTH ONCE DAILY Rx Instructions: TAKE 1 TABLET BY MOUTH ONCE DAILY bisoprolol fumarate 10 mg tablet See Rx Instructions .ROUTE .COMPLEX Qty: 30 0RF Dose Instruction: TAKE ONE TABLET BY MOUTH ONCE A DAY Rx Instructions: TAKE ONE TABLET BY MOUTH ONCE A DAY oxycodone-acetaminophen [Percocet] 10-325 mg tablet 1 tab PO QID Qty: 120 0RF Referrals Follow up/Referrals: Chaim Barcenas MD [Primary Care Provider] - See instructions Activity Restrictions/Add. Instructions Additional Instructions/Restrictions: Please follow-up with your primary care provider. Please return to the emergency department if you develop any new or worsening symptoms or become concerned for your health. Clinical Impressions Clinical Impression: Chronic fatigue, Examination for, medical, general, Abnormal laboratory test Discharge ED Provider: Marcellus Alanis Adult [facility] General Chief complaint: Weakness Stated complaint: weakness,KHAN dizzy Time Seen by Provider: 01/06/23 23:27 Mode of Arrival: Ambulatory Source of Information: Patient Limitations: No Limitations Description of Symptoms (Recalled from ER Triage Doc. by RN): reports creatinine levels have been elevated and that he was seen this past Thursday and given 1 liter of fluids, but continues to feel bad History of Present Illness HPI narrative: 62-year-old male history of hypertension on 4 antihypertensive medications presents with multiple complaints. He reports that his creatinine was noted to be elevated at 2.5 recently, had it rechecked at 1.4 and is here for repeat check. It was thought to be previously elevated due to dehydration. Patient also has chronic weakness fatigue and intermittent dizziness for which she has had extensive evaluation with PCP and cardiology. 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 Reports that he has mild intermittent diarrhea and has had a recent normal colonoscopy. Reports that he has occasional fever that lasts for couple of hours but does not have other associated symptoms. Reports that he has traveled to [place] in the last year but otherwise has not traveled significantly. No reported weight loss or weight gain. No chest pain abdominal pain or shortness of breath. No specific active symptoms at this time. They are concerned that he might have cancer or some other underlying missing diagnosis. He follows closely with his PCP. He also sees someone regarding low testosterone and is getting testosterone shots. Related Data Home Medications Medication Instructions Recorded Confirmed testosterone 75 mg implant pellet 75 mg implant .3x ayear Supplement 02/14/19 12/03/22 (Testopel) Previous Rx's Medication Instructions Recorded spironolactone 25 mg tablet 25 mg PO DAILY Fluid #90 tabs 09/08/22 (Aldactone) valsartan 160 1 tab PO DAILY bp #90 tabs 09/08/22 mg-hydrochlorothiazide 25 mg tablet amlodipine 5 mg tablet See Rx Instructions .Route 12/01/22 .COMPLEX #90 tabs pantoprazole 40 mg tablet,delayed See Rx Instructions .Route 12/01/22 release .COMPLEX GERD #90 tabs bisoprolol fumarate 10 mg tablet See Rx Instructions .Route 12/30/22 .COMPLEX #30 tabs oxycodone-acetaminophen 10 mg-325 1 tab PO QID Pain #120 tabs
[2023-01-06 23:52] LABS: Microscopic, Urine URINE MICROSCOPIC (MICROSCOPIC)
[2023-01-06 23:58] LABS: Basophils % 0.4 % (0.1-2.0); Eosinophils # 0.2 K/mm3 (0.0-0.4); Eosinophils % 2.1 % (0.1-12.0); Hematocrit 40.9 % (42.0-52.0); Hemoglobin 13.3 g/dL (14.1-18.0); Lymphocytes % 18.9 % (10-50); Mean Corpuscular HGB Conc 32.6 g/dL (31.8-35.4); Mean Corpuscular Hemoglobin 30.9 pg (27.0-31.2); Mean Corpuscular Volume 94.8 fl (80-94); Mean Platelet Volume 8.3 fl (7.4-10.4); Monocytes # 0.8 K/mm3 (0.1-1.0); Monocytes % 7.6 % (1.7-9.3); Neutrophils # 7.5 K/mm3 (1.8-7.8); Platelet Count 259 K/mm3 (142-424); Red Blood Count 4.32 M/mm3 (4.60-6.20); Red Cell Distribution Width 14.1 % (11.5-17.5); White Blood Count 10.5 K/mm3 (4.8-10.8)
--- NOTE | 2023-01-06 23:58 | ECG_ITS ---
APPROVED REPORT Exam: Resting ECG HR:57 bpm ECG Measurements Heart Rate 57 AXES NH 187 P 35 QRSd 108 QRS 63 QT 397 T -32 QTc 392 Conclusion SINUS BRADYCARDIA MODERATE T-WAVE ABNORMALITY, CONSIDER INFERIOR ISCHEMIA [-0.1+ mV T-WAVE IN II/aVF] ABNORMAL ECG UNCONFIRMED REPORT Electronically signed by : Ren Bass MD 01/08/2023 20:02:20
--- NOTE | 2023-01-07 | XR_ITS ---
PROCEDURE INFORMATION: Exam: XR Chest Exam date and time: 01/07/2023 12:03 AM Age: 62 years old Clinical indication: Other: Dizziness TECHNIQUE: Imaging protocol: Radiologic exam of the chest. Views: 1 view. COMPARISON: CR XR CHEST 2V 11/21/2021 10:56 PM FINDINGS: Lungs: The lungs appear clear. No focal areas of consolidation. Pleural spaces: No pleural effusions. Negative for pneumothorax. Heart/Mediastinum: Cardiac silhouette and pulmonary vasculature are within range of normal. Bones/joints: There is no evidence of acute fracture. The thoracic spine demonstrates moderate degenerative changes at multiple levels. IMPRESSION: Negative for an acute cardiopulmonary abnormality.
[2023-01-07 00:03] LABS: Appearance,Urine CLEAR (Clear); Bilirubin,Urine Negative (Negative); Blood, Urine Negative (Negative); Chloride 100 mmol/L (98-107); Color,Urine YELLOW (Yellow); Glucose,Urine (UA) Negative (Negative); Ketones,Urine Negative (Negative); Leukocyte Esterase,Urine Negative (Negative); Nitrate,Urine Negative (Negative); Protein,Urine Negative (Negative); Urobilinogen,Urine 0.2 EU/dl (0.2)
[2023-01-07 00:04] LABS: Potassium 3.9 mmoL/L (3.5-5.1); Sodium 143 mmol/L (136-145)
[2023-01-07 00:06] LABS: Alanine Aminotransferase 33 U/L (12-78); Alkaline Phosphatase 59 U/L (38-126); Aspartate Amino Transferase 41 U/L (17-59); Bilirubin,Total 0.6 mg/dl (0.2-1.3); Blood Urea Nitrogen 11 mg/dl (9-20); Creatinine Clearance Estimated 73 mL/min (50-200); Estimated Glomerular Filt Rate 61 ml/min (>60); GFR (African American) 74 ML/MIN (>60); Lipase 35 U/L (23-300); Magnesium 1.9 mg/dl (1.6-2.3)
[2023-01-07 00:07] LABS: Albumin Level 4.6 g/dl (3.5-5.0); Albumin/Globulin Ratio 1.4 (1.1-1.8); Anion Gap 13.9 mEq/L (5-15); Carbon Dioxide 33 mmol/L (22.0-30.0); Globulin 3.4 g/dL (1.3-3.2); Glucose 76 mg/dl (74-100)
[2023-01-07 00:08] LABS: WBC,Urine Occasional #/hpf (0-3)
[2023-01-07 00:14] LABS: Coronavirus 19, PCR Not Detected (NotDetected); Influenza A, PCR Not Detected (NotDetected); Influenza B, PCR Not Detected (NotDetected)
[2023-01-07 00:24] LABS: T4 (Thyroxine) 9.4 ug/dl (5.53-11.0)
[2023-01-07 00:38] LABS: Thyroid Stimulating Hormone 3.65 uIU/mL (0.465-4.68)
[2023-01-07 00:59] VITALS: BP 121/73; PULSE 60; RESP 18; TEMP 36.4; O2SAT 99
== END 2023-01-07 01:02 | disposition home or self-care (01) ==
PROVIDERS: Emergency Provider Emergency Medicine; PCP Emergency Medicine
DX: R51.9 Headache, unspecified (principal); R53.1 Weakness; R42 Dizziness and giddiness; R00.1 Bradycardia, unspecified; F32.A Depression, unspecified; E78.5 Hyperlipidemia, unspecified; I10 Essential (primary) hypertension
CPT/HCPCS: 71045; 80053; 81001; 83690; 83735; 84436; 84443; 85025; 87636; 93005; 99285

== ENCOUNTER → 2023-01-21 11:00 | Outpatient (CLI) | payer MEDICAID, SELFPAY ==
[2023-01-21 21:33] LABS: Amphetamine/Metha Screen,Urine Negative ng/ml (<1000)
[2023-01-21 21:34] LABS: Barbiturates Screen,Urine Negative ng/ml (<200)
[2023-01-21 21:35] LABS: Benzodiazepines Screen,Urine Negative ng/ml (<200); Cannabinoid Screen,Urine Negative ng/ml (<50)
[2023-01-21 21:36] LABS: Cocaine Screen,Urine Negative ng/ml (<300); Methadone Screen,Urine Negative ng/ml (<300)
[2023-01-21 21:37] LABS: Opiate Screen,Urine Positive ng/ml (<300)
[2023-01-21 21:38] LABS: Phencyclidine Screen,Urine Negative ng/ml (<25)
== END ==
PROVIDERS: PCP Emergency Medicine; Visit Provider Emergency Medicine
DX: Z79.899 Other long term (current) drug therapy (principal)
CPT/HCPCS: 80305

== ENCOUNTER → 2023-01-21 13:19 | Outpatient (CLI) | payer MEDICAID, SELFPAY ==
--- NOTE | 2023-01-21 13:20 | US_ITS ---
FINAL REPORT CLINICAL HISTORY: R89.9 - Unspecified abnormal finding in specimens from ot... FINDINGS: The right kidney measures 10.3 cm in length. It is normal in echogenicity. There is no hydronephrosis. The left kidney measures 10.2 cm in length. It is normal in echogenicity. There is no hydronephrosis. The spleen measures 8.2 cm. IMPRESSION: Normal renal ultrasound. Reviewed, Interpreted and Dictated by Ray Loza MD Transcribed by Kylie Castro Authenticated and [facility]
[2023-01-21 14:24] LABS: Basophils # 0.1 K/mm3 (0-0.2); Basophils % 0.7 % (0.1-2.0); Eosinophils # 0.2 K/mm3 (0.0-0.4); Hematocrit 45.2 % (42.0-52.0); Hemoglobin 14.4 g/dL (14.1-18.0); Lymphocytes % 21.2 % (10-50); Mean Corpuscular Hemoglobin 30.9 pg (27.0-31.2); Mean Corpuscular Volume 96.6 fl (80-94); Mean Platelet Volume 8.1 fl (7.4-10.4); Monocytes # 0.7 K/mm3 (0.1-1.0); Monocytes % 7.9 % (1.7-9.3); Neutrophils # 6.4 K/mm3 (1.8-7.8); Neutrophils % 68.2 % (37.0-80.0); Platelet Count 275 K/mm3 (142-424); Red Blood Count 4.67 M/mm3 (4.60-6.20); Red Cell Distribution Width 15.4 % (11.5-17.5); White Blood Count 9.4 K/mm3 (4.8-10.8)
[2023-01-21 14:37] LABS: Amphetamine/Metha Screen,Urine Negative ng/ml (<1000); Barbiturates Screen,Urine Negative ng/ml (<200)
[2023-01-21 14:38] LABS: Benzodiazepines Screen,Urine Negative ng/ml (<200); Cannabinoid Screen,Urine Negative ng/ml (<50)
[2023-01-21 14:39] LABS: Cocaine Screen,Urine Negative ng/ml (<300)
[2023-01-21 14:40] LABS: Methadone Screen,Urine Negative ng/ml (<300); Phencyclidine Screen,Urine Negative ng/ml (<25)
[2023-01-21 14:41] LABS: Opiate Screen,Urine Negative ng/ml (<300)
[2023-01-21 15:02] LABS: Erythrocyte Sedimentation Rate 15 mm/hr (0-20)
[2023-01-21 15:33] LABS: Chloride 102 mmol/L (98-107); Potassium 4.2 mmoL/L (3.5-5.1); Sodium 140 mmol/L (136-145)
[2023-01-21 15:36] LABS: Alanine Aminotransferase 34 U/L (12-78); Alkaline Phosphatase 49 U/L (38-126); Anion Gap 11.2 mEq/L (5-15); Aspartate Amino Transferase 36 U/L (17-59); Bilirubin,Total 0.6 mg/dl (0.2-1.3); Blood Urea Nitrogen 18 mg/dl (9-20); Carbon Dioxide 31 mmol/L (22.0-30.0); Estimated Glomerular Filt Rate 61 ml/min (>60); GFR (African American) 74 ML/MIN (>60)
[2023-01-21 15:37] LABS: Albumin Level 4.3 g/dl (3.5-5.0); Albumin/Globulin Ratio 1.5 (1.1-1.8); Calcium 9.4 mg/dl (8.4-10.2); Globulin 2.8 g/dL (1.3-3.2); Glucose 92 mg/dl (74-100); Iron 109 ug/dL (49-181); Total Protein,Serum 7.1 g/dl (6.3-8.2)
[2023-01-21 15:46] LABS: Total Iron Binding Capacity 370 ug/dL (261-462)
[2023-01-23 08:16] LABS: C-Reactive Protein 0.7 mg/L (0-4)
== END ==
PROVIDERS: PCP Emergency Medicine; Visit Provider Emergency Medicine
DX: R42 Dizziness and giddiness (principal); R89.9 Unspecified abnormal finding in specimens from other organs, systems and tissues; R53.82 Chronic fatigue, unspecified; R39.9 Unspecified symptoms and signs involving the genitourinary system; Z79.899 Other long term (current) drug therapy
CPT/HCPCS: 36415; 76770; 80053; 80305; 83540; 83550; 85025; 85651; 86140; 87086

== ENCOUNTER → 2023-03-23 16:07 | Outpatient (CLI) | payer MEDICAID, SELFPAY ==
[2023-03-23 17:07] LABS: Amphetamine/Metha Screen,Urine Negative ng/ml (<1000)
[2023-03-23 17:08] LABS: Barbiturates Screen,Urine Negative ng/ml (<200)
[2023-03-23 17:10] LABS: Benzodiazepines Screen,Urine Negative ng/ml (<200); Cannabinoid Screen,Urine Negative ng/ml (<50)
[2023-03-23 17:11] LABS: Cocaine Screen,Urine Negative ng/ml (<300)
[2023-03-23 17:12] LABS: Methadone Screen,Urine Negative ng/ml (<300); Opiate Screen,Urine Positive ng/ml (<300)
[2023-03-23 17:13] LABS: Phencyclidine Screen,Urine Negative ng/ml (<25)
== END ==
PROVIDERS: PCP Emergency Medicine; Visit Provider Emergency Medicine
DX: Z79.899 Other long term (current) drug therapy (principal)
CPT/HCPCS: 80305

== ENCOUNTER → 2023-04-28 08:24 | Outpatient (CLI) | payer MEDICAID, SELFPAY ==
--- NOTE | 2023-04-28 08:24 | MR_ITS ---
FINAL REPORT CLINICAL HISTORY: numbness tingling of upper extremities. hx neck surgery 20 years ago COMPARISON: 08/24/2019 FINDINGS: Multi planar MR imaging was obtained of the cervical spine. There is anterior and interbody fusion hardware bridging C5-6. There is abnormal decreased signal throughout the cervical discs. The vertebrae are of normal height. There is no malalignment. The cervical cord demonstrates normal signal and configuration. C2-C3: There is no evidence of significant disc bulge or protrusion. There is no significant facet hypertrophy. C3-C4: Small midline disc protrusion is present. There is mild spinal canal compromise and moderate left neural foraminal narrowing. C4-C5: There is a posterior osteophyte eccentric to the left resulting in moderate compromise of the left side of the spinal canal and high-grade left neural foraminal narrowing. C5-C6: There is no evidence of significant disc bulge or protrusion. There is no significant facet hypertrophy. C6-C7: Mild diffuse disc bulge is present with mild bilateral neural foraminal narrowing. C7-T1: Diffuse disc bulge is present. There is prominent endplate hypertrophy. There is high-grade bilateral neural foraminal narrowing. IMPRESSION: High-grade bilateral neural foraminal narrowing, most evident on the left at C4-5 and bilaterally at C7-T1. Findings have increased since prior. Reviewed, Interpreted and Dictated by Ray Loza MD Transcribed by Kylie Castro Authenticated and [facility]
== END ==
PROVIDERS: PCP Emergency Medicine; Visit Provider Nurse Practitioner Family
DX: R20.0 Anesthesia of skin (principal); R20.2 Paresthesia of skin
CPT/HCPCS: 72141; 76376

== ENCOUNTER 2023-05-19 11:57 | Outpatient (CLI) | payer MEDICAID, SELFPAY ==
[2023-05-19 14:34] LABS: Amphetamine/Metha Screen,Urine Negative ng/ml (<1000); Barbiturates Screen,Urine Negative ng/ml (<200)
[2023-05-19 14:35] LABS: Benzodiazepines Screen,Urine Negative ng/ml (<200); Cannabinoid Screen,Urine Negative ng/ml (<50)
[2023-05-19 14:36] LABS: Cocaine Screen,Urine Negative ng/ml (<300)
[2023-05-19 14:37] LABS: Methadone Screen,Urine Negative ng/ml (<300)
[2023-05-19 14:39] LABS: Opiate Screen,Urine Positive ng/ml (<300); Phencyclidine Screen,Urine Negative ng/ml (<25)
== END 2023-05-19 23:59 ==
LOC: LAB.DROPOF 11:57
PROVIDERS: PCP Nurse Practitioner Family; Visit Provider Nurse Practitioner Family
DX: Z79.899 Other long term (current) drug therapy (principal); G89.29 Other chronic pain
CPT/HCPCS: 80307; 80365

== ENCOUNTER 2023-05-28 21:52 | Emergency (ER) | payer MEDICAID, SELFPAY ==
[2023-05-28 21:54] VITALS: BP 123/89; PULSE 60; RESP 18; TEMP 36.8; O2SAT 96; BMI 25.5
--- NOTE | 2023-05-28 22:34 | CT_ITS ---
PROCEDURE INFORMATION: Exam: CT Pelvis Without Contrast; Skeletal Exam date and time: 05/28/2023 11:07 PM Age: 62 years old Clinical indication: Pelvic pain; Additional info: Fall onto replaced L hip, pain TECHNIQUE: Imaging protocol: Computed tomography of the pelvis without contrast. Exam focused on the skeleton. Radiation optimization: All CT scans at this facility use at least one of these dose optimization techniques: automated exposure control; mA and/or kV adjustment per patient size (includes targeted exams where dose is matched to clinical indication); or iterative reconstruction. COMPARISON: 1. CR XR HIP LT 2-3V W/PELVIS 05/28/2023 10:[address] LUMBAR SPINE WO CON 05/28/2023 11:04 PM 3. US CA RENAL ARTERY DUPLEX 03/12/2022 8:10 AM FINDINGS: Stomach and bowel: There are scattered colonic diverticula without evidence for active diverticulitis. Urinary bladder: There is moderate distention of the urinary bladder. Reproductive: There are some prostate calcifications. Vasculature: There is atherosclerotic disease of the visualized aorta and its major branch vessels. Bones/joints: There is diffuse osseous demineralization. There is diffuse degenerative disease of the visualized osseous structures. There is a left hip arthroplasty with associated streak artifact mildly limits evaluation of the pelvis. There is heterotopic ossification over the left hip. Soft tissues: There is a fat containing left inguinal hernia. There is mild soft tissue dependent edema in the subcutaneous regions. IMPRESSION: Status post left total hip arthroplasty with scattered degenerative change and left hip heterotopic ossification. No acute injury is identified.
--- NOTE | 2023-05-28 22:34 | CT_ITS ---
PROCEDURE INFORMATION: Exam: CT Lumbar Spine Without Contrast Exam date and time: 05/28/2023 11:04 PM Age: 62 years old Clinical indication: Low back pain; Additional info: Fall onto replaced L hip, pain, back pain TECHNIQUE: Imaging protocol: Computed tomography of the lumbar spine without contrast. Radiation optimization: All CT scans at this facility use at least one of these dose optimization techniques: automated exposure control; mA and/or kV adjustment per patient size (includes targeted exams where dose is matched to clinical indication); or iterative reconstruction. COMPARISON: 1. CR XR HIP LT 2-3V W/PELVIS 05/28/2023 10:46 PM 2. US CA RENAL ARTERY DUPLEX 03/12/2022 8:10 AM FINDINGS: Bones/joints: No evidence of acute spondylolisthesis or vertebral subluxation. Vertebral body heights are generally preserved, but some endplate sclerosis and anterior osteophytes are noted at multiple levels. Narrowing of multiple intervertebral disc spaces observed, indicative of degenerative disc disease. Hypertrophic changes are seen in the facet joints, consistent with osteoarthritis. No fractures or bony lesions identified. No abnormalities seen in adjacent osseous structures. Soft tissues: Unremarkable. Other findings: No obvious abnormalities seen in the prevertebral and paravertebral soft tissues. IMPRESSION: Degenerative changes without acute abnormality detected.
--- NOTE | 2023-05-28 22:34 | XR_ITS ---
PROCEDURE INFORMATION: Exam: XR Left Hip Exam date and time: 05/28/2023 10:46 PM Age: 62 years old Clinical indication: Hip pain; Left hip; Additional info: Fall, pain TECHNIQUE: Imaging protocol: Radiologic exam of the left hip. Views: 2 or 3 views hip with pelvis when performed. COMPARISON: US CA RENAL ARTERY DUPLEX 03/12/2022 8:10 AM FINDINGS: Bones/joints: Status post left hip arthroplasty. There is advanced degenerative change of the right hip with joint space narrowing, productive changes, and subchondral sclerosis. There are partially visualized degenerative changes of the sacroiliac joints and lumbar spine as well as some degenerative disease of the pubic symphysis. There is heterotopic ossification of the left hip. Partially visualized lucency in the femur is better described on the dedicated femur radiographs. No acute fracture or dislocation is identified. Soft tissues: Unremarkable. IMPRESSION: Degenerative disease and postsurgical change without acute injury identified.
--- NOTE | 2023-05-28 22:34 | XR_ITS ---
PROCEDURE INFORMATION: Exam: XR Left Femur Exam date and time: 05/28/2023 10:47 PM Age: 62 years old Clinical indication: Pain; Thigh; Left; Additional info: Fall, pain TECHNIQUE: Imaging protocol: Radiologic exam of the left femur. Views: 2 views. COMPARISON: CR XR HIP LT 2-3V W/PELVIS 05/28/2023 10:46 PM FINDINGS: Bones/joints: There is a lucency through the posteromedial left femoral diaphysis. Status post left hip arthroplasty. There is diffuse osseous demineralization. Soft tissues: Diffuse soft tissue swelling is noted. IMPRESSION: Lucency through the posterior femoral diaphysis may reflect a nutrient foramen, nondisplaced fracture is not excluded and correlation for point tenderness is suggested.
[2023-05-28] MEDS: OXYCODONE 5MG IMMEDIATE RELEASE TABLET 10 MG PO (22:44)
[2023-05-28] MEDS: KETOROLAC 30MG/ML VIAL 30 MG IM (22:44)
[2023-05-28] MEDS: LIDOCAINE 5% TRANSDERMAL PATCH 1 EACH TP (22:45)
[2023-05-28] MEDS: ACETAMINOPHEN 500MG TAB 1000 MG PO (22:45)
--- NOTE | 2023-05-28 22:52 | ED_ITS ---
Discharge Plan Disposition Patient Disposition: Home, Self-Care Condition: Good Prescriptions Prescriptions: New naproxen 500 mg tablet 500 mg PO BID Qty: 20 0RF lidocaine [Lidoderm] 5 % adhesive patch,medicated 1 patch topical DAILY Qty: 15 0RF Rx Instructions: leave on most painful area for up to 12 hrs methocarbamol 750 mg tablet 750 mg PO Q8H PRN (Reason: pain) Qty: 20 0RF No Action Testopel 75 mg pellet 75 mg [place] .3x ayear sildenafil (pulm.hypertension) 20 mg tablet 20 mg PO PRN oxycodone-acetaminophen [Percocet] 10-325 mg tablet 1 tab PO QID Qty: 120 0RF spironolactone [Aldactone] 25 mg tablet 25 mg PO DAILY Qty: 90 1RF pantoprazole 40 mg tablet,delayed release (DR/EC) See Rx Instructions .ROUTE .COMPLEX Qty: 90 3RF Rx Instructions: TAKE 1 TABLET BY MOUTH ONCE DAILY amlodipine 5 mg tablet See Rx Instructions .ROUTE .COMPLEX Qty: 90 3RF Dose Instruction: TAKE 1 TABLET BY MOUTH ONCE DAILY Rx Instructions: TAKE 1 TABLET BY MOUTH ONCE DAILY valsartan-hydrochlorothiazide 160-25 mg tablet 1 tab PO DAILY Qty: 90 1RF bisoprolol fumarate 10 mg tablet See Rx Instructions .ROUTE .COMPLEX Qty: 30 0RF Dose Instruction: TAKE ONE TABLET BY MOUTH ONCE A DAY Rx Instructions: TAKE ONE TABLET BY MOUTH ONCE A DAY Referrals Follow up/Referrals: Mathew Santiago DO [Primary Care Provider] - See instructions Activity Restrictions/Add. Instructions Additional Instructions/Restrictions: You were evaluated in the emergency department today. Please worm picker your prescriptions and take as needed for pain. You may also take Tylenol. Follow- up with your primary care provider in the next 3 to 4 days for reassessment. Return to the emergency department for new or worsening symptoms Clinical Impressions Clinical Impression: Fall down stairs, Left hip pain, Low back pain Instructions Patient Instructions: DI for Low Back Pain, DI for Hip Pain Discharge ED Provider: Tanesha Lorenzo General Adult HPI General Chief complaint: Fall Stated complaint: AO/@1999 back hip pain Time Seen by Provider: 05/28/23 22:10 Mode of Arrival: Ambulatory Limitations: No Limitations Description of Symptoms (Recalled from ER Triage Doc. by RN): fell 2 hours ago; slipped down 4 stairs, fell straight onto back/ buttock; hx of left hip replacement; slightly hit back of head; no LOC; no numbness or tingling; swollen area to left lower back History of Present Illness HPI narrative: This patient is a 62-year-old male with a history of left hip replacement presenting to the emergency department for evaluation with concern for left hip/pelvis injury. Patient reports that he was forced to retire when he slipped on siddiqui, falling directly to the bottom step on his buttocks. He did not hit his head or lose consciousness. He complains of severe left hip/low back/sacral pain at this time. This happened just prior to arrival. He does not take any anticoagulation. No loss of consciousness noted. No numbness, tingling, or w eakness noted. He is still ambulatory. Related Data Home Medications Medication Instructions Recorded Confirmed testosterone 75 mg implant pellet 75 mg implant .3x ayear Supplement 02/14/19 05/19/23 (Testopel) sildenafil (pulm.hypertension) 20 20 mg PO PRN 01/21/23 05/19/23 mg tablet Previous Rx's Medication Instructions Recorded spironolactone 25 mg tablet 25 mg PO DAILY Fluid #90 tabs 09/08/22 (Aldactone) amlodipine 5 mg tablet See Rx Instructions .Route 12/01/22 .COMPLEX #90 tabs pantoprazole 40 mg tablet,delayed See Rx Instructions .Route 12/01/22 release .COMPLEX GERD #90 tabs valsartan 160 1 tab PO DAILY bp #90 tabs 03/19/23 mg-hydrochlorothiazide 25 mg tablet bisoprolol fumarate 10 mg tablet See Rx Instructions .Route 04/24/23 .COMPLEX #30 tabs oxycodone-acetaminophen 10 mg-325 1 tab PO QID Pain #120 tabs 05/19/23 mg tablet (Percocet) lidocaine 5 % topical patch 1 patch topical DAILY #15 ea 05/28/23 (Lidoderm) methocarbamol 750 mg tablet 750 mg PO Q8H PRN pain #20 tabs 05/28/23 naproxen 500 mg tablet 500 mg PO BID #20 tabs 05/28/23 Allergies Allergy/AdvReac Type Severity Reaction Status Date / Time No Known Allergies Allergy Verified 05/19/23 09:38 [facility] Disclaimer: The information contained in this section may have been updated after the patient was seen, as this information can be updated by other users. Medical History Depression Hyperlipidemia Hypertension Surgical History History of colonoscopy History of esophagogastroduodenoscopy (EGD) History of hip surgery History of neck surgery History of tonsillectomy Family History Other Colon cancer Family history of melanoma Family history of pancreatic cancer Heart disease Social History Smoking Status: Never smoker alcohol intake: current substance use type: denies use current occupational status: employed Travel in the last 8 weeks: None household members: other housing: house current occupation: self empl caffeine: Yes ROS Obtained: Yes All systems reviewed & no additional complaints except as documented Physical Exam General General appearance: alert and in no apparent distress Comment: Very uncomfortable appearing Head Head exam: atraumatic and normocephalic Eye Eye exam: Present normal appearance, PERRL and EOMI ENT ENT exam: Present normal exam, normal oropharynx, mucous membranes moist and normal external ear exam Neck Neck exam: Present normal inspection, full ROM and trachea midline; Absent tenderness Chest Chest inspection: Present normal inspection and symmetric chest wall rise; Absent tenderness Respiratory Respiratory exam: Present normal lung sounds bilaterally; Absent respiratory distress, wheezes, stridor or accessory muscle use Cardiovascular Cardiovascular exam: Present regular rate and normal rhythm Abdominal Exam Abdominal exam: Present soft; Absent distention, tenderness or guarding Extremities Exam Extremities exam: Present full ROM, tenderness (Left hip without obvious deformity. Neurovascularly intact distally.) and normal capillary refill; Absent edema Back Exam Back exam: Present full ROM and tenderness (Low back, left hip) Neurological Exam Neurological exam: Present alert, oriented X3, CN II-XII intact and normal gait; Absent motor sensory deficit Psychiatric Psychiatric exam: Present normal affect and normal mood Skin Skin exam: Present warm and dry Medical Decision Making Medical Records Medical records reviewed: Yes I reviewed the patient's medical records. [place] Inquiry Pt receiving controlled substance: No Vital Signs: 05/28/23 21:54 Temperature 98.3 F Temperature Source Oral Pulse Rate [Right Radial] 60 Respiratory Rate 18 Blood Pressure [Right Arm] 123/89 Blood Pressure Mean [Right Arm] 100 02 Sat by Pulse Oximetry 96 Oxygen Delivery Method Room Air Lab Data Lab results reviewed: Yes I reviewed the patient's lab results. Orders (Tests/Meds): ED MEDICATIONS Discontinued Medications Generic Name Dose Route Start Last Admin Trade Name Javed PRN Reason Stop Dose Admin Acetaminophen 1,000 mg 05/28/23 22:35 05/28/23 22:45 Acetaminophen 500mg Tab PO 05/28/23 22:36 1,000 mg ONCE ONE Administration Ketorolac Tromethamine 30 mg 05/28/23 22:35 05/28/23 22:44 Ketorolac 30mg/Ml Vial IM 05/28/23 22:36 30 mg ONCE ONE Administration Lidocaine 1 each 05/28/23 22:35 05/28/23 22:45 Lidocaine 5% Transdermal Patch TP 05/28/23 22:36 1 each ONCE ONE Administration Oxycodone HCl 10 mg 05/28/23 22:35 05/28/23 22:44 Oxycodone 5mg Immediate Release Tablet PO 05/28/23 22:36 10 mg ONCE ONE Administration ORDERS Category Date Time Status CT bony pelvis Stat Cat Scan 05/28/23 22:[address] cervical spine wo con Stat Cat Scan 05/28/23 23:[address] head/brain wo con Stat Cat Scan 05/28/23 23:[address] lumbar spine wo con Stat Cat Scan 05/28/23 22:[address] thoracic spine wo con Stat Cat Scan 05/28/23 23:04 Completed XR femur LT 2V Stat Exams 05/28/23 22:34 Completed XR hip LT 2-3V w/pelvis Stat Exams 05/28/23 22:34 Completed Medical Decision Narrative: In summary, this patient is a 62-year-old male presenting to the Emergency Department for evaluation of left hip/low back injury after mechanical fall down 4 steps . Differential diagnoses considered include but are not limited to fracture, contusion, strain/sprain, neurovascular injury. Ruling out the most morbid conditions drove assessment. On exam, the patient is very uncomfortable appearing. He is low back and left hip tenderness but is neurovascularly intact. Workup included CT lumbar spine, CT bony pelvis, and x-ray of the left hip and femur. He was given oral oxycodone, IM Toradol, oral Tylenol, and a topical Lidoderm patch for symptomatic improvement of pain. I independently interpreted x-ray and CT scan prior to the radiologist read and noted obvious acute fracture. They did note possible channel versus fracture of the femur, however patient is not tender there. I do not think that this is a fracture.. Please see their read for final interpretation. On reassessment, the patient is resting calmly with improved symptoms. At this time, feel that he is appropriate for discharge. He was given prescriptions for naproxen, Robaxin, and Lidoderm patches and instructions for supportive management. He was discharged after all questions were answered. Critical Care Critical Care Time Critical Care Time: No
--- NOTE | 2023-05-28 23:04 | CT_ITS ---
PROCEDURE INFORMATION: Exam: CT Head Without Contrast Exam date and time: 05/28/2023 11:13 PM Age: 62 years old Clinical indication: Pain; Other: Fall; Additional info: Fall, pain TECHNIQUE: Imaging protocol: Computed tomography of the head without contrast. Radiation optimization: All CT scans at this facility use at least one of these dose optimization techniques: automated exposure control; mA and/or kV adjustment per patient size (includes targeted exams where dose is matched to clinical indication); or iterative reconstruction. COMPARISON: CT HEAD/BRAIN WO CON 11/07/2021 10:18 PM FINDINGS: Brain: Normal. No hemorrhage. Unremarkable white matter. No mass effect. Cerebral ventricles: No ventriculomegaly. Paranasal sinuses: Visualized sinuses are unremarkable. No fluid levels. Mastoid air cells: Visualized mastoid air cells are well aerated. Bones/joints: Unremarkable. No acute fracture. Soft tissues: Unremarkable. IMPRESSION: No acute intracranial abnormality.
--- NOTE | 2023-05-28 23:04 | CT_ITS ---
PROCEDURE INFORMATION: Exam: CT Cervical Spine Without Contrast Exam date and time: 05/28/2023 11:15 PM Age: 62 years old Clinical indication: Neck pain; Additional info: Fall, pain TECHNIQUE: Imaging protocol: Computed tomography of the cervical spine without contrast. Radiation optimization: All CT scans at this facility use at least one of these dose optimization techniques: automated exposure control; mA and/or kV adjustment per patient size (includes targeted exams where dose is matched to clinical indication); or iterative reconstruction. COMPARISON: MR CERVICAL SPINE WO CON 04/28/2023 8:20 AM FINDINGS: Bones/joints: No acute fracture. Normal alignment. No significant disc bulge or herniation. No severe spinal canal stenosis. No significant neural foraminal narrowing. ORIF of C5/6 with fusion of C5/6. Multilevel degenerative disc and joint space changes most pronounced at C4/5 and C7/T1. Vertebral body heights grossly preserved. Lungs: Lung apices are normal. Soft tissues: Unremarkable. IMPRESSION: No acute findings.
--- NOTE | 2023-05-28 23:04 | CT_ITS ---
PROCEDURE INFORMATION: Exam: CT Thoracic Spine Without Contrast Exam date and time: 05/28/2023 11:09 PM Age: 62 years old Clinical indication: Pain in thoracic spine; Additional info: Fall, pain TECHNIQUE: Imaging protocol: Computed tomography of the thoracic spine without contrast. Radiation optimization: All CT scans at this facility use at least one of these dose optimization techniques: automated exposure control; mA and/or kV adjustment per patient size (includes targeted exams where dose is matched to clinical indication); or iterative reconstruction. COMPARISON: 1. CT LUMBAR SPINE WO CON 05/28/2023 11:04 PM 2. MR CERVICAL SPINE WO CON 04/28/2023 8:20 AM 3. MR CERVICAL SPINE WO CON 08/24/2019 8:32 AM FINDINGS: Bones/joints: There is exaggeration of the spinal curvature. There is diffuse osseous demineralization. No evidence of acute spondylolisthesis or vertebral subluxation. Vertebral body heights are generally preserved, but some endplate sclerosis and anterior osteophytes are noted at multiple levels. Narrowing of multiple intervertebral disc spaces observed, indicative of degenerative disc disease. Hypertrophic changes are seen in the facet joints, consistent with osteoarthritis. No fractures or bony lesions identified. No abnormalities seen in adjacent osseous structures. There is partially visualized cervical spine surgical hardware. Soft tissues: Unremarkable. Lungs: There are areas of subpleural reticulation throughout the visualized lungs which are nonspecific. Spleen: Partially visualized splenic calcification. Other findings: No obvious abnormalities seen in the prevertebral and paravertebral soft tissues. IMPRESSION: Degenerative changes without acute abnormality detected.
[2023-05-29] VITALS: BP 147/86; PULSE 78; RESP 18; TEMP 36.7; O2SAT 99
== END 2023-05-29 00:02 | disposition home or self-care (01) ==
PROVIDERS: Emergency Provider Emergency Medicine; PCP Internal Medicine
DX: M54.50 Low back pain, unspecified (principal); M25.552 Pain in left hip; I10 Essential (primary) hypertension; E78.5 Hyperlipidemia, unspecified; W10.9XXA Fall (on) (from) unspecified stairs and steps, initial encounter; M54.2 Cervicalgia
CPT/HCPCS: 70450; 72125; 72128; 72131; 72192; 73502; 73552; 96372; 99285

== ENCOUNTER 2023-06-15 12:51 | Outpatient (CLI) | payer MEDICAID, SELFPAY ==
[2023-06-15 13:10] LABS: Chloride 101 mmol/L (98-107); Potassium 3.7 mmoL/L (3.5-5.1); Sodium 136 mmol/L (136-145)
[2023-06-15 13:11] LABS: Basophils % 0.2 % (0.1-2.0); Eosinophils # 0.1 K/mm3 (0.0-0.4); Eosinophils % 0.5 % (0.1-12.0); Hematocrit 46.3 % (42.0-52.0); Hemoglobin 15.6 g/dL (14.1-18.0); Lymphocytes # 1.7 K/mm3 (0.7-4.5); Lymphocytes % 11.3 % (10-50); Mean Corpuscular HGB Conc 33.8 g/dL (31.8-35.4); Mean Corpuscular Hemoglobin 33.3 pg (27.0-31.2); Mean Corpuscular Volume 98.6 fl (80-94); Mean Platelet Volume 8.8 fl (7.4-10.4); Monocytes # 0.9 K/mm3 (0.1-1.0); Monocytes % 6.2 % (1.7-9.3); Neutrophils # 12.1 K/mm3 (1.8-7.8); Neutrophils % 81.8 % (37.0-80.0); Platelet Count 289 K/mm3 (142-424); Red Cell Distribution Width 15.3 % (11.5-17.5); White Blood Count 14.7 K/mm3 (4.8-10.8)
[2023-06-15 13:13] LABS: Alanine Aminotransferase 29 U/L (12-78); Albumin Level 4.4 g/dl (3.5-5.0); Albumin/Globulin Ratio 1.8 (1.1-1.8); Alkaline Phosphatase 56 U/L (38-126); Anion Gap 11.7 mEq/L (5-15); Aspartate Amino Transferase 33 U/L (17-59); Bilirubin,Total 1.2 mg/dl (0.2-1.3); Blood Urea Nitrogen 15 mg/dl (9-20); Calcium 9.7 mg/dl (8.4-10.2); Carbon Dioxide 27 mmol/L (22.0-30.0); Cholesterol 237 mg/dl (140-200); Creatine Kinase 131 U/L (55-170); Estimated Glomerular Filt Rate 61 ml/min (>60); GFR (African American) 74 ML/MIN (>60); Globulin 2.5 g/dL (1.3-3.2); Glucose 105 mg/dl (74-100); Total Protein,Serum 6.9 g/dl (6.3-8.2); Triglycerides 107 mg/dl (30-150); VLDL Cholesterol 21 mg/dL (0-40)
[2023-06-15 13:14] LABS: HDL Cholesterol 47 mg/dl (40-60)
[2023-06-15 13:20] LABS: C-Reactive Protein 6.2 mg/L (0-4)
[2023-06-15 13:25] LABS: Direct LDL Cholesterol 149.58 mg/dL (100-129)
[2023-06-15 13:33] LABS: 25-OH Vitamin D, Total 31.6 ng/mL (30-100)
[2023-06-15 14:52] LABS: Thyroid Stimulating Hormone 2.49 uIU/mL (0.465-4.68)
[2023-06-15 16:00] LABS: Creatinine,Urine Random 99 mg/dL (Not Estab.)
[2023-06-15 16:05] LABS: Microalbumin < 6.000 mg/L (0-16.7)
== END 2023-06-15 23:59 ==
LOC: LAB.DROPOF 12:51
PROVIDERS: PCP Internal Medicine; Visit Provider Internal Medicine
DX: G56.20 Lesion of ulnar nerve, unspecified upper limb (principal); R53.82 Chronic fatigue, unspecified; Z79.899 Other long term (current) drug therapy; Z12.5 Encounter for screening for malignant neoplasm of prostate
CPT/HCPCS: 80053; 80061; 82043; 82306; 82550; 82570; 84443; 85025; 86140; G0103

== ENCOUNTER 2023-06-30 11:05 | Outpatient (CLI) | payer MEDICAID, SELFPAY ==
--- NOTE | 2023-06-30 11:08 | XR_ITS ---
FINAL REPORT CLINICAL HISTORY: lt wrist pain FINDINGS: AP, oblique, and lateral views of the left wrist were obtained. There is no prior exam for comparison. There is no acute fracture or dislocation. The joint spaces are preserved. The soft tissues are normal. IMPRESSION: No acute osseous abnormality of the left wrist. If pain persists, MR is recommended. Reviewed, Interpreted and Dictated by July Nicole MD Transcribed by Gavi Javed Authenticated and [facility]
--- NOTE | 2023-06-30 12:05 | ECG_ITS ---
APPROVED REPORT Exam: Resting ECG HR:50 bpm ECG Measurements Heart Rate 50 AXES NV 181 P 37 QRSd 105 QRS 65 QT 414 T 16 QTc 389 Conclusion SINUS BRADYCARDIA NONSPECIFIC T-WAVE ABNORMALITY BORDERLINE ECG UNCONFIRMED REPORT Electronically signed by : Ren Bass MD 06/30/2023 19:02:38
--- NOTE | 2023-06-30 12:18 | XR_ITS ---
FINAL REPORT CLINICAL HISTORY: HTN-- preop FINDINGS: PA and lateral views of the chest are obtained. There is no prior exam for comparison. The cardiac and mediastinal silhouettes are within normal limits. The lungs are clear. There is no pleural effusion, pneumothorax, or acute osseous abnormality. IMPRESSION: No radiographic evidence of acute cardiac or pulmonary disease. Reviewed, Interpreted and Dictated by July Nicole MD Transcribed by Gavi Javed Authenticated and [facility]
[2023-06-30 12:50] LABS: Alanine Aminotransferase 29 U/L (12-78); Albumin Level 4.4 g/dl (3.5-5.0); Albumin/Globulin Ratio 1.9 (1.1-1.8); Alkaline Phosphatase 48 U/L (38-126); Aspartate Amino Transferase 31 U/L (17-59); Blood Urea Nitrogen 15 mg/dl (9-20); Calcium 9.6 mg/dl (8.4-10.2); Carbon Dioxide 31 mmol/L (22.0-30.0); Chloride 102 mmol/L (98-107); Estimated Glomerular Filt Rate 61 ml/min (>60); GFR (African American) 74 ML/MIN (>60); Globulin 2.3 g/dL (1.3-3.2); Glucose 93 mg/dl (74-100); Sodium 138 mmol/L (136-145); Total Protein,Serum 6.7 g/dl (6.3-8.2)
[2023-06-30 13:05] LABS: Basophils % 0.3 % (0.1-2.0); Eosinophils # 0.1 K/mm3 (0.0-0.4); Eosinophils % 0.6 % (0.1-12.0); Hematocrit 45.3 % (42.0-52.0); Lymphocytes # 1.7 K/mm3 (0.7-4.5); Lymphocytes % 17.4 % (10-50); Mean Corpuscular HGB Conc 33.1 g/dL (31.8-35.4); Mean Corpuscular Hemoglobin 33.3 pg (27.0-31.2); Mean Corpuscular Volume 100.7 fl (80-94); Mean Platelet Volume 8.1 fl (7.4-10.4); Monocytes # 0.7 K/mm3 (0.1-1.0); Monocytes % 6.9 % (1.7-9.3); Neutrophils # 7.5 K/mm3 (1.8-7.8); Neutrophils % 74.8 % (37.0-80.0); Platelet Count 222 K/mm3 (142-424); Red Cell Distribution Width 14.4 % (11.5-17.5)
== END 2023-06-30 23:59 ==
PROVIDERS: PCP Internal Medicine; Visit Provider Orthopaedic Surgery
DX: Z01.818 Encounter for other preprocedural examination (principal); M25.532 Pain in left wrist
CPT/HCPCS: 36415; 71046; 73110; 80053; 85025; 93005

== ENCOUNTER → 2023-07-02 14:52 | Outpatient (POV) | payer MEDICAID, SELFPAY ==
[2023-07-02 15:51] VITALS: BP 127/78; PULSE 73; RESP 18; O2SAT 96; BMI 25.5
--- NOTE | 2023-07-02 16:39 | A.OFFVIS_ITS ---
HPI Data of Consult Patient: new to practice Consult date: 07/02/23 Requesting Physician: Tanesha Ochoa APRN Primary Care Provider: Mathew Santiago DO Consult Narrative Reason for consult: Low back pain, bilateral hip pain, right knee pain, neck pain, shoulder eliseo History of present illness: Mr. Chavira is a 62 year old male who presents today as a new patient. He is a referral from Dr. Edmonds's office. Today he rates his pain a 7 out of 10. Patient states he does have pain at multiple areas including his neck with radiating symptoms down his entire left arm and into his hand as well as low back, bilateral hips and right knee. Patient states that overall his neck and low back pain has been going on for years and describes it as a aching, shocking sensation that goes into his extremities. Patient has tried [id number] Tylenol and ibuprofen along with heat and ice and topicals in the past with mini mal relief. He denies been to the chiropractor, physical therapy and had injection therapy with only short-term relief. Patient is looking for other options that we could provide for his chronic pain. Patient does state that he has had his left hip replaced and his right hip needs to be replaced. Patient does state that he did previously think his numbness and weakness in his left hand was related to his neck however they ended up doing testing that showed that he had a pinched nerve in his elbow. Patient does state that he plans on most likely having surgery for decompression of this nerve coming up in the future. Patient is currently prescribed Percocet 10 mg 4 times a day from his primary care provider. His Shelton has been reviewed and is appropriate. CC: Tanesha Ochoa APRN [facility] Disclaimer: The information contained in this section may have been updated after the patient was seen, as this information can be updated by other users. Medical History Depression Patient does state that the pain gets me down . I have suggested Rahel's wort as he is not indicated and medications . Will see how that works for him. Hyperlipidemia Hypertension Surgical History History of colonoscopy History of esophagogastroduodenoscopy (EGD) History of hip surgery History of neck surgery History of tonsillectomy Family History Other Colon cancer Family history of melanoma Family history of pancreatic cancer Heart disease Social History (Updated 07/02/23 @ 15:52 by Kalee Charles RN) Smoking Status: Never smoker alcohol intake: current substance use type: denies use current occupational status: employed Travel in the last 8 weeks: None household members: other housing: house current occupation: self empl caffeine: Yes Review of Systems Review of Systems Review of systems:: pertinent systems reviewed and negative unless documented below Review of systems (narrative): Review of Systems: General: No recent weight changes, no fever, no sleep disturbances Respiratory: No cough, no shortness of air, no recurring pulmonary infections Cardiovascular/peripheral vascular: No chest pain, no palpitations, no edema, no shortness of breath Gastrointestinal: No new onset incontinence, normal bowel movements reported Genitourinary: No new onset incontinence Musculoskeletal: Neck pain, left arm pain, low back pain, bilateral hip pain, right knee pain Psychiatric: [Normal mood/affect] Neurological: [Denies weakness in extremities], [denies balance issues] Meds Home Medications and Allergies Home Medications Medication Instructions Recorded Confirmed Type testosterone 75 mg implant pellet 75 mg implant .3x ayear Supplement 02/14/19 07/02/23 History (Testopel) pantoprazole 40 mg tablet,delayed See Rx Instructions .Route 12/01/22 07/02/23 Rx release .COMPLEX GERD #90 tabs sildenafil (pulm.hypertension) 20 20 mg PO DIRECTED PRN . 01/21/23 07/02/23 History mg tablet valsartan 160 1 tab PO DAILY bp #90 tabs 03/19/23 07/02/23 Rx mg-hydrochlorothiazide 25 mg tablet lidocaine 5 % topical patch 1 patch topical DAILY #15 ea 05/28/23 07/02/23 Rx (Lidoderm) oxycodone-acetaminophen 10 mg-325 1 tab PO QID Pain #120 tabs 06/15/23 07/02/23 Rx mg tablet (Percocet) bisoprolol fumarate 10 mg tablet See Rx Instructions .Route 06/19/23 07/02/23 Rx .COMPLEX #30 tabs spironolactone 25 mg tablet See Rx Instructions .Route 06/19/23 07/02/23 Rx .COMPLEX #30 tabs New Prescriptions to Start Prescriptions: Allergies Allergy/AdvReac Type Severity Reaction Status Date / Time No Known Allergies Allergy Verified 06/30/23 11:31 Objective Vital signs: Pulse Resp BP Pulse Ox O2 Del Method 73 18 127/78 96 Room Air 07/02/23 15:51 07/02/23 15:51 07/02/23 15:51 07/02/23 15:51 07/02/23 15:51 Narrative: Physical Exam: General: Alert and oriented x3, no acute distress, pleasant and cooperative Lungs: Respirations even and unlabored, symmetrical chest expansion Eyes: PERRL Musculoskeletal: Flexion and extension of lumbar [spine] somewhat guarded secondary to pain, [antalgic gait noted] Neurological: Speech clear, no gross sensory deficit Additional findings Additional findings: FINDINGS: Bones/joints: No acute fracture. Normal alignment. No significant disc bulge or herniation. No severe spinal canal stenosis. No significant neural foraminal narrowing. ORIF of C5/6 with fusion of C5/6. Multilevel degenerative disc and joint space changes most pronounced at C4/5 and C7/T1. Vertebral body heights grossly preserved. Lungs: Lung apices are normal. Soft tissues: Unremarkable. IMPRESSION: No acute findings. INGS: Bones/joints: There is exaggeration of the spinal curvature. There is diffuse osseous demineralization. No evidence of acute spondylolisthesis or vertebral subluxation. Vertebral body heights are generally preserved, but some endplate sclerosis and anterior osteophytes are noted at multiple levels. Narrowing of multiple intervertebral disc spaces observed, indicative of degenerative disc disease. Hypertrophic changes are seen in the facet joints, consistent with osteoarthritis. No fractures or bony lesions identified. No abnormalities seen in adjacent osseous structures. There is partially visualized cervical spine surgical hardware. Soft tissues: Unremarkable. Lungs: There are areas of subpleural reticulation throughout the visualized lungs which are nonspecific. Spleen: Partially visualized splenic calcification. Other findings: No obvious abnormalities seen in the prevertebral and paravertebral soft tissues. IMPRESSION: Degenerative changes without acute abnormality detected. INGS: Bones/joints: No evidence of acute spondylolisthesis or vertebral subluxation. Vertebral body heights are generally preserved, but some endplate sclerosis and anterior osteophytes are noted at multiple levels. Narrowing of multiple intervertebral disc spaces observed, indicative of degenerative disc disease. Hypertrophic changes are seen in the facet joints, consistent with osteoarthritis. No fractures or bony lesions identified. No abnormalities seen in adjacent osseous structures. Soft tissues: Unremarkable. Other findings: No obvious abnormalities seen in the prevertebral and paravertebral soft tissues. IMPRESSION: Degenerative changes without acute abnormality detected. Assessment and Plan *Assessment and plan (1) Chronic pain syndrome: Status: Acute Category: Medical Code(s): G89.4 - Chronic pain syndrome (2) Degenerative disc disease, lumbar: Status: Acute Category: Medical Code(s): M51.36 - Other intervertebral disc degeneration, lumbar region (3) Lumbar postlaminectomy syndrome: Problem Comment: I think he has a post lumbar laminectomy syndrome however this is not as bad as his neck pain. But the medications do help for this. Status: Chronic Category: Medical Code(s): M96.1 - Postlaminectomy syndrome, not elsewhere classified (4) Cervical post-laminectomy syndrome: Problem Comment: See above I do think he has a postlaminectomy syndrome. Will continue the oxycodone as prescribed. Status: Chronic Category: Medical Code(s): M96.1 - Postlaminectomy syndrome, not elsewhere classified (5) Cervical nerve root impingement: Status: Acute Category: Medical Code(s): G54.2 - Cervical root disorders, not elsewhere classified (6) Cervical spondylosis: Status: Acute Category: Medical Code(s): M47.812 - Spondylosis without myelopathy or radiculopathy, cervical region (7) Low back pain: Status: Acute Qualifiers: Chronicity: chronic Back pain laterality: bilateral Sciatica presence: without sciatica Qualified Code(s): M54.50 - Low back pain, unspecified; G89.29 - Other chronic pain Category: Medical Code(s): M54.50 - Low back pain, unspecified (8) Lumbar radiculopathy: Status: Acute Category: Medical Code(s): M54.16 - Radiculopathy, lumbar region (9) Bilateral hip pain: Status: Acute Category: Medical Code(s): M25.551 - Pain in right hip; M25.552 - Pain in left hip (10) Right knee pain: Status: Acute Qualifiers: Chronicity: chronic Qualified Code(s): M25.561 - Pain in right knee; G89.29 - Other chronic pain Category: Medical Code(s): M25.561 - Pain in right knee Plan Patient is experiencing significant pain in multiple locations with limited range of motion of his lumbar spine during today's exam. I have discussed with the patient due to his chronic pain that he may be a beneficial candidate of a intrathecal pain pump trial or the spinal cord stimulator trial. Patient does have significant findings for both of these devices. Risk and benefits and educational handouts were given at today's visit. I have discussed with the patient that with either of these procedures we would have to order a psychological evaluation first to make sure he is appropriate candidate. Patient would like time to evaluate this. I will order the patient a compounded cream and have him come back in 2 weeks for reevaluation of symptoms and plan of care. Patient has been instructed to contact the clinic with any concerns before the next appointment. Dr. Gallegos has reviewed this note and agrees with this plan of care. This note was dictated using voice recognition software and make contain errors or omissions.
== END ==
LOC: SC.PAIN 14:52
PROVIDERS: PCP Internal Medicine; Visit Provider Nurse Practitioner Family
DX: G89.4 Chronic pain syndrome (principal); M96.1 Postlaminectomy syndrome, not elsewhere classified; M47.812 Spondylosis without myelopathy or radiculopathy, cervical region; M54.50 Low back pain, unspecified; M51.16 Intervertebral disc disorders with radiculopathy, lumbar region; M25.551 Pain in right hip; M25.552 Pain in left hip; M25.561 Pain in right knee
CPT/HCPCS: 99202; G0463

== ENCOUNTER 2023-07-10 13:08 | Outpatient (CLI) | payer MEDICAID, SELFPAY ==
[2023-07-10 14:46] LABS: Chol/HDL Ratio 5.6 (1-3.5); Cholesterol 267 mg/dl (140-200); HDL Cholesterol 48 mg/dl (40-60); Triglycerides 142 mg/dl (30-150); VLDL Cholesterol 28 mg/dL (0-40)
[2023-07-10 14:57] LABS: Direct LDL Cholesterol 179.03 mg/dL (100-129)
== END 2023-07-10 23:59 ==
LOC: LAB.DROPOF 13:08
PROVIDERS: PCP Internal Medicine; Visit Provider Internal Medicine
DX: E78.5 Hyperlipidemia, unspecified (principal)
CPT/HCPCS: 80061

== ENCOUNTER 2023-07-13 07:03 | Day surgery (SDC) | payer MEDICAID, SELFPAY ==
[2023-07-10 10:54] VITALS: BMI 25.5
[2023-07-13] VITALS (12 sets, daily range): BP systolic 107–163; BP diastolic 66–86; PULSE 60–95; RESP 16–18; TEMP 36.3–43; O2SAT 93–97
[2023-07-13] MEDS: LACTATED RINGERS 1000ML 1,000 ML 25 ML IV (07:42)
--- NOTE | 2023-07-13 07:51 | P.PNANES_ITS ---
[facility] Disclaimer: The information contained in this section may have been updated after the patient was seen, as this information can be updated by other users. Medical History Depression Patient does state that the pain gets me down . I have suggested [place]'s wort as he is not indicated and medications . Will see how that works for him. Hyperlipidemia Hypertension Surgical History History of esophagogastroduodenoscopy (EGD) History of colonoscopy History of neck surgery History of hip surgery History of tonsillectomy Family History Other Colon cancer Family history of melanoma Family history of pancreatic cancer Heart disease Social History (Updated 07/13/23 @ 07:41 by Shellie Lynch RN) Smoking Status: Never smoker alcohol intake: current substance use type: denies use current occupational status: employed Travel in the last 8 weeks: None household members: other housing: house current occupation: self empl caffeine: Yes [facility] Anesthesia Checklist Patient Identification Patient Identification: Arm Band, Family (- uncooperative w/pre-op interview. Upset she had to wait in waiting room?) and Verbal (Name & ) Structural Data Admitted From: Home Planned Operative Procedure/s: Lt. Cubital tunnel release Consent for Planned Operative Procedure(s) Verified: Yes Verified Documents: Surgical Consent and History and Physical NPO Status Verified Time NPO: 20:30 Chart Verification Results Verified: CBC, BMP, ECG and Chest Xray Additional verifications Patient : No Anesthesia Reactions: No Hx Blood Transfusions: No Blood Transfusion Reaction: No Cardiovascular Assessment Heart Sounds: S1 & S2 Pulse Rhythm: Irregular Peripheral Edema: No Airway Assessment Mallampati Score:: Class II C-Spine Mobility Assessed: Yes (Limited extension) TMJ Mobility Assessed: Yes Dentition: Good Dentition (Nothing loose per pt.) Neurological Assessment Level of Consciousness: Awake, Alert, Appropriate and Follows Commands Hx Seizures: No Numbness or tingling in extremities: Yes (Lt. arm/hand) Anesthesia Plan Anesthesia Risk discussed: Yes Anesthesia Plan: Verified ASA Class: II Anesthesia Type: General
[2023-07-13] MEDS: CEFAZOLIN SODIUM 1 GM in 0.9 % SODIUM CHLORIDE 50 ML IV (08:55)
[2023-07-13] MEDS: LIDOCAINE 1% W/EPI 1:100,000 20ML VIAL 20 ML (08:55)
--- NOTE | 2023-07-13 09:36 | EXP.OP.NOTE ---
Date of procedure: 07/13/23 Pre-op Diagnosis:: Left cubital tunnel syndrome Post-op Diagnosis:: Same Procedure performed:: Left cubital tunnel release with ulnar nerve decompression at the elbow Surgeon:: Miguel A Ochoa DO FLIGHT OPERATIONS SPECIALIST:: Jose Rai Anesthesia: GETA Estimated blood loss (mL): 0 Operative findings:: See dictation Operative note:: Patient identified preoperatively. Left elbow marked with yes and my initials. Transferred operative suite. Placed upon the radiolucent bed with a hand table. Left upper extremity was then prepped and draped normal sterile fashion. Once prepped and draped final operative timeout performed to identify proper patient procedure and extremity. Everyone involved the case agreed. No counter indications to beginning. Did receive preoperative antibiotics. Marking pen was used to russ plan incision over the cubital tunnel left elbow Esmarch was used to exsanguinate the extremity pneumatic tourniquet inflated to 250 mmHg. Skin knife is used to incise through skin careful dissection is taken down the scissors to identify the cubital tunnel. 15 blade was used to make small mimi within the cubital tunnel and scissors were used to open the cubital tunnel where the ulnar nerve was visualized. Careful dissection was taken proximally up to the arcade of [place] with complete decompression of the ulnar nerve to this area and then dissection was taken distally down to the flexor pronator mass. Complete decompression of the nerve was obtained. There was scarring at the cubital tunnel which was significant careful dissection was taken around the nerve nerve was remaining in the groove with flexion extension of the elbow without instability. Irrigation of the wound performed superficial subcu layers closed with Vicryl stitch 3-0 nylon the skin for closure sterile dressing placed including the hand patient waken anesthesia taken recovery stable condition Condition: stable Disposition: PACU Complications:: None apparent
--- NOTE | 2023-07-13 09:46 | P.PNANES_ITS ---
[facility] Anesthesia Record Part I Anesthesia Record I Intake, IV Amount: 800 Hydration: Adequate Estimated blood loss (mL): 5 Urine output (mL): 0 Blood Products used (#): none Blood Pressure: 123/66 SaO2: 93 Pulse Rate: 76 Airway Patency: Patent Respiratory Rate: 16 Temperature: 97.7 F Patient is:: Drowsy and Stable Stable to PACU at:: 09:45
--- NOTE | 2023-07-13 09:47 | PC.NURSE ---
ORAL AIRWAY IN PLACE UPON ARRIVAL TO PACU.
--- NOTE | 2023-07-13 09:58 | SUR.PHASEI ---
ORAL AIRWAY [id number] BY Lyn BIANCHI CRNA WITHOUT DIFFICULTY.
[2023-07-13] MEDS: MORPHINE 2MG/ML SYRINGE 2 MG IV ×2 (10:08→10:15)
--- NOTE | 2023-07-13 16:13 | EXP.ANES.II ---
[facility] Anesthesia Record Part II Anesthesia Record Part II Discharge Time: 10:22 Destination: Surgical Day Care (OP Surgery) PACU nurse assessment reviewed?: Yes Patient Condition:: Good Anesthesia Complications:: None Swallowing reflex intact?: Yes Airway Patency: Patent Cyanosis?: No Blood Pressure: 122/75 SaO2: 94 Respiratory Rate: 18 Pulse Rate: 89 Temperature: 98 F Mental Status: Alert & Oriented Pain level:: 5 Nausea and/or vomitting:: None Intake, IV Amount: 0 Hydration: Adequate
== END 2023-07-13 11:05 | disposition home or self-care (01) ==
PROVIDERS: PCP Internal Medicine; Visit Provider Orthopaedic Surgery
PROC: (CPT 64718; principal; 2023-07-13 08:30)
DX: G56.22 Lesion of ulnar nerve, left upper limb (principal)
CPT/HCPCS: 64718; 96374; J2405

== ENCOUNTER 2023-07-20 09:05 | Outpatient (POV) | payer MEDICAID, SELFPAY ==
--- NOTE | 2023-07-20 09:35 | EXP.PAIN.SOA ---
[facility] Pain Management SOAP Note Subjective:: Patient is a pleasant 62-year-old male who presents today for follow-up. We are currently treating the patient for degenerative disc disease of cervical and lumbar spine with cervical and lumbar radiculopathy symptoms, status post lumbar laminectomy, cervical fusion, chronic pain. Today he rates his pain a 6 out of 10. He denies any new trauma or injury. He does state that he continues to have significant pain that is worse in his neck with radiating symptoms to his upper extremities. Patient did recently have surgery for the decompression of the nerve that was found on EMG to see if it improved his numbness and tingling on the left hand. He states that he is still experiencing the symptoms but they did state it may take several weeks before noticing improvement. Patient has had injections in the past however this was approximately 10 years ago. Patient does describe his pain currently as an aching, throbbing sensation with numbness and tingling. He states it does interfere with his ability to perform activities of daily living. Patient has had prior surgery as well as tried Tylenol and ibuprofen along with heat and ice and topicals with minimal relief. At his last visit we did order him compounded cream however he states he missed their phone call and has not contacted them to get this medication ordered. His Shelton has been reviewed and is appropriate. Review of Systems: General: No recent weight changes, no fever, no sleep disturbances Respiratory: No cough, no shortness of air, no recurring pulmonary infections Cardiovascular/peripheral vascular: No chest pain, no palpitations, no edema, no shortness of breath Gastrointestinal: No new onset incontinence, normal bowel movements reported Genitourinary: No new onset incontinence Musculoskeletal: Neck pain, upper arm/hand pain Psychiatric: [Normal mood/affect] Neurological: [Denies weakness in extremities], [denies balance issues] Objective:: Physical Exam: General: Alert and oriented x3, no acute distress, pleasant and cooperative Lungs: Respirations even and unlabored, symmetrical chest expansion Eyes: PERRL Musculoskeletal: Flexion and extension of cervical [spine] somewhat guarded secondary to pain, [antalgic gait noted] Neurological: Speech clear, no gross sensory deficit Assessment:: Degenerative disc disease of cervical and lumbar spine with cervical and lumbar radiculopathy symptoms, postlaminectomy syndrome, post cervical fusion, neck pain syndrome, bilateral hip pain, knee pain Plan:: Patient continues to experience significant pain in his neck with radiating symptoms to his upper extremities. I have discussed with the patient due to his limited range of motion of the cervical spine that he may benefit from a cervical epidural steroid injection. Risk and benefits were discussed with the patient however at this time he would like to wait. I have counseled the patient if he decides that he would like to try this injection between now and his next visit he can call and schedule this over the phone. Patient is not on any blood thinners. Patient has tried and failed conservative therapy. I have also recommended the patient to reach out to the compound pharmacy for the cream between now and his next visit. Patient will return to clinic in 1 month for reevaluation of symptoms and plan of care. Patient has been instructed to contact the clinic with any concerns before the next appointment. Dr. Gallegos has reviewed this note and agrees with this plan of care. This note was dictated using voice recognition software and make contain errors or omissions. [facility] Disclaimer: The information contained in this section may have been updated after the patient was seen, as this information can be updated by other users. Medical History Depression He states that his mood is improved. Follow-up for now. Hyperlipidemia Hypertension Surgical History History of esophagogastroduodenoscopy (EGD) History of colonoscopy History of neck surgery History of hip surgery History of tonsillectomy Family History Other Colon cancer Family history of melanoma Family history of pancreatic cancer Heart disease Social History Smoking Status: Never smoker alcohol intake: current substance use type: denies use current occupational status: employed Travel in the last 8 weeks: None household members: other housing: house current occupation: self empl caffeine: Yes
[2023-07-20 10:22] VITALS: BP 115/74; PULSE 54; RESP 18; O2SAT 96; BMI 25.5
== END 2023-07-20 23:59 ==
LOC: SC.PAIN 09:06
PROVIDERS: PCP Internal Medicine; Visit Provider Nurse Practitioner Family
DX: M50.10 Cervical disc disorder with radiculopathy, unspecified cervical region (principal); M51.16 Intervertebral disc disorders with radiculopathy, lumbar region; M96.1 Postlaminectomy syndrome, not elsewhere classified; M43.22 Fusion of spine, cervical region; M25.551 Pain in right hip; M25.552 Pain in left hip; M25.569 Pain in unspecified knee; G89.29 Other chronic pain
CPT/HCPCS: 99212; G0463

== ENCOUNTER 2023-08-04 19:02 | Outpatient (CLI) | payer MEDICAID, SELFPAY ==
[2023-08-04 18:01] LABS: Adenovirus,PCR Not Detected (NotDetected); Coronavirus 19, PCR Not Detected (NotDetected); Coronavirus 229E Not Detected (NotDetected); Coronavirus NL63 Not Detected (NotDetected); Coronavirus OC43 Not Detected (NotDetected); Coronovirus HKU1,PCR Not Detected (NotDetected); Influenza A, PCR Not Detected (NotDetected); Influenza AH1, 2009 Not Detected (NotDetected); Influenza AH1, PCR Not Detected (NotDetected); Influenza AH3,PCR Not Detected (NotDetected); Influenza B, PCR Not Detected (NotDetected); Parainfluenza 1, PCR Not Detected (NotDetected); Parainfluenza 2, PCR Not Detected (NotDetected); Parainfluenza 3, PCR Not Detected (NotDetected); Parainfluenza 4, PCR Not Detected (NotDetected); Respiratory Syncytial Virus Not Detected (NotDetected); Rhinovirus/Enterovirus Not Detected (NotDetected)
[2023-08-04 19:46] LABS: Human Metapneumovirus Detected (NotDetected)
== END 2023-08-04 23:59 ==
LOC: LAB.DROPOF 19:02
PROVIDERS: PCP Student in an Organized Health Care Education/Training Program; Visit Provider Student in an Organized Health Care Education/Training Program
DX: J12.3 Human metapneumovirus pneumonia (principal); R05.9 Cough, unspecified; R50.9 Fever, unspecified; H92.02 Otalgia, left ear; Z20.828 Contact with and (suspected) exposure to other viral communicable diseases
CPT/HCPCS: 87070; 87632; 87635

== ENCOUNTER 2023-10-05 10:52 | Outpatient (CLI) | payer MEDICAID, SELFPAY ==
[2023-10-05 19:08] LABS: Basophils % 0.5 % (0.1-2.0); Eosinophils # 0.2 K/mm3 (0.0-0.4); Hematocrit 40.1 % (42.0-52.0); Hemoglobin 13.4 g/dL (14.1-18.0); Lymphocytes # 1.6 K/mm3 (0.7-4.5); Lymphocytes % 20.8 % (10-50); Mean Corpuscular HGB Conc 33.5 g/dL (31.8-35.4); Mean Corpuscular Hemoglobin 31.7 pg (27.0-31.2); Mean Corpuscular Volume 94.6 fl (80-94); Mean Platelet Volume 10.2 fl (7.4-10.4); Monocytes # 0.7 K/mm3 (0.1-1.0); Monocytes % 8.4 % (1.7-9.3); Neutrophils # 5.3 K/mm3 (1.8-7.8); Neutrophils % 68.2 % (37.0-80.0); Platelet Count 253 K/mm3 (142-424); Red Blood Count 4.24 M/mm3 (4.60-6.20); Red Cell Distribution Width 15.2 % (11.5-17.5); White Blood Count 7.7 K/mm3 (4.8-10.8)
[2023-10-05 19:23] LABS: Alanine Aminotransferase 26 U/L (12-78); Albumin Level 4.1 g/dl (3.5-5.0); Albumin/Globulin Ratio 1.6 (1.1-1.8); Alkaline Phosphatase 43 U/L (38-126); Anion Gap 14.7 mEq/L (5-15); Aspartate Amino Transferase 35 U/L (17-59); Blood Urea Nitrogen 16 mg/dl (9-20); Calcium 9.4 mg/dl (8.4-10.2); Carbon Dioxide 26 mmol/L (22.0-30.0); Chloride 101 mmol/L (98-107); Chol/HDL Ratio 6.1 (1-3.5); Cholesterol 219 mg/dl (140-200); Estimated Glomerular Filt Rate 56 ml/min (>60); GFR (African American) 67 ML/MIN (>60); Globulin 2.6 g/dL (1.3-3.2); Glucose 88 mg/dl (74-100); HDL Cholesterol 36 mg/dl (40-60); Potassium 3.7 mmoL/L (3.5-5.1); Sodium 138 mmol/L (136-145); Total Protein,Serum 6.7 g/dl (6.3-8.2); Triglycerides 200 mg/dl (30-150); VLDL Cholesterol 40 mg/dL (0-40)
[2023-10-05 19:34] LABS: Direct LDL Cholesterol 145.12 mg/dL (100-129)
[2023-10-05 19:43] LABS: 25-OH Vitamin D, Total 23.9 ng/mL (30-100)
[2023-10-05 19:55] LABS: Thyroid Stimulating Hormone 1.83 uIU/mL (0.465-4.68)
[2023-10-05 19:59] LABS: Hemoglobin A1C 5.4 % (4.0-6.0)
[2023-10-05 20:16] LABS: Vitamin B12 > 1000 pg/mL (239-931)
== END 2023-10-05 23:59 | disposition home or self-care (01) ==
LOC: LAB.DROPOF 10-07 10:52
PROVIDERS: PCP Internal Medicine; Visit Provider Internal Medicine
DX: R53.83 Other fatigue (principal); E78.2 Mixed hyperlipidemia; R53.1 Weakness; E55.9 Vitamin D deficiency, unspecified; Z68.24 Body mass index [BMI] 24.0-24.9, adult
CPT/HCPCS: 80053; 80061; 82306; 82607; 83036; 84443; 85025

== ENCOUNTER 2023-10-14 17:00 | Observation (INO) | payer MEDICAID, SELFPAY ==
[2023-10-14 17:02] VITALS: BP 146/95; PULSE 67; RESP 18; TEMP 36.7; O2SAT 98; BMI 25.7
--- NOTE | 2023-10-14 17:04 | HMH.EDGENADL ---
Discharge Plan Disposition Patient Disposition: Admitted Condition: Fair Clinical Impressions Clinical Impression: Rhabdomyolysis Qualifiers: Rhabdomyolysis type: non-traumatic Qualified Code(s): M62.82 - Rhabdomyolysis Discharge ED Provider: Óscar Yost General Adult HPI <BERTHA Reyes - Last Filed: 10/14/23 20:22> General Chief complaint: PAIN Stated complaint: back pain, feet swelling Time Seen by Provider: 10/14/23 17:04 History of Present Illness HPI narrative: Patient presents for evaluation of multiple complaints. Patient reports that he has a longstanding history of chronic pain with degenerative spinal disc disease on chronic pain medicine. However patient states that he began having significant low back pain that radiated down his left leg and had difficulty being able to walk due to his left leg weakness. He ultimately went to the [facility] on Thursday per his report where he had CT imaging done was given a steroid Dosepak muscle relaxers and referred to spinal surgery as an outpatient. They attempted to call spinal surgery on Thursday but have not been called back to make an appointment. Patient states since then he is still continuing to have difficulty walking with left leg weakness but denies bowel or bladder loss, saddle anesthesia chest pain shortness of breath fever chills hemoptysis hematochezia melena nausea vomiting diarrhea. Additionally patient reports that he is globally weak and has difficult doing even simple physical tasks. Patient also reports that he has bilateral lower extremity, right greater than left, edema that is new. He does not have any known history of congestive heart failure or kidney disease. Related Data Home Medications Medication Instructions Recorded Confirmed testosterone 75 mg implant pellet 75 mg implant .3x ayear Supplement 02/14/19 10/14/23 (Testopel) sildenafil (pulm.hypertension) 20 20 mg PO DIRECTED PRN . 01/21/23 10/14/23 mg tablet Previous Rx's Medication Instructions Recorded lidocaine 5 % topical patch 1 patch topical DAILY #15 ea 05/28/23 (Lidoderm) pantoprazole 40 mg tablet,delayed See Rx Instructions .Route 08/13/23 release .COMPLEX #30 tabs valsartan 160 1 tab PO DAILY bp #90 tabs 08/13/23 mg-hydrochlorothiazide 25 mg tablet bisoprolol fumarate 10 mg tablet See Rx Instructions .Route 09/15/23 .COMPLEX #30 tabs atorvastatin 10 mg tablet 10 mg PO DAILY #30 tabs 10/05/23 olanzapine 5 mg tablet 5 mg PO HS #30 tabs 10/05/23 oxycodone-acetaminophen 10 mg-325 1 tab PO Q6H PRN post op pain #120 10/05/23 mg tablet tabs pramipexole 0.25 mg tablet 0.25 mg PO HS #30 tabs 10/05/23 spironolactone 25 mg tablet See Rx Instructions .Route 10/08/23 .COMPLEX #30 tabs Allergies Allergy/AdvReac Type Severity Reaction Status Date / Time No Known Allergies Allergy Verified 10/05/23 08:38 PFSH <BERTHA Reyes - Last Filed: 10/14/23 20:22> [facility] Disclaimer: The information contained in this section may have been updated after the patient was seen, as this information can be updated by other users. Medical History Depression Hyperlipidemia Hypertension Surgical History History of esophagogastroduodenoscopy (EGD) History of colonoscopy History of neck surgery History of hip surgery History of tonsillectomy Family History Other Colon cancer Family history of melanoma Family history of pancreatic cancer Heart disease Social History (Updated 10/14/23 @ 20:34 by Maryjane Patel RN) Smoking Status: Never smoker alcohol intake: current alcohol intake frequency: a few times a month substance use type: denies use current occupational status: employed Travel in the last 8 weeks: None household members: other housing: house current occupation: self empl caffeine: Yes <BERTHA Reyes - Last Filed: 10/14/23 20:22> ROS Obtained: Yes Systems reviewed as appropriate & no additional complaints except as documented Physical Exam <BERTHA Reyes - Last Filed: 10/14/23 20:22> General General appearance: alert and in no apparent distress Head Head exam: atraumatic and normal inspection Eye Eye exam: Present normal appearance, PERRL and EOMI ENT ENT exam: Present normal exam, normal oropharynx and mucous membranes moist Neck Neck exam: Present normal inspection, full ROM and trachea midline; Absent lymphadenopathy Chest Chest inspection: Present normal inspection and symmetric chest wall rise Respiratory Respiratory exam: Present normal lung sounds bilaterally; Absent accessory muscle use Cardiovascular Cardiovascular exam: Present regular rate, normal rhythm, normal heart sounds and +S2 Abdominal Exam Abdominal exam: Present soft and normal bowel sounds; Absent tenderness, guarding, rebound or rigidity Extremities Exam Extremities exam: Present normal inspection, tenderness (Bilateral lower extremity muscle tenderness, left greater than right from knee to ankle) and edema (Bilateral lower extremity pitting edema, right greater than left); Absent full ROM (Patient has been diminished range of motion in his left lower extremity due to the pain that he is experiencing) Back Exam Back exam: Present normal inspection and tenderness (Left lumbar and associated paraspinous muscle); Absent full ROM Neurological Exam Neurological exam: Present alert and oriented X3 Psychiatric Psychiatric exam: Present normal affect and normal mood Skin Skin exam: Present warm, dry and normal color Lymphatic Lymphatic Findings: no adenopathy Medical Decision Making <BERTHA Reyes - Last Filed: 10/14/23 20:22> Medical Records Medical records reviewed: Yes I reviewed the patient's medical records. [place] Inquiry Pt receiving controlled substance: No Vital Signs: 10/14/23 17:02 10/14/23 17:10 10/14/23 17:31 Temperature 98.1 F Temperature Source Oral Pulse Rate 68 71 Pulse Rate [Radial] 67 Respiratory Rate 18 Blood Pressure 146/95 H 144/105 H Blood Pressure [Left Arm] 146/95 H Blood Pressure Mean 111 118 Blood Pressure Mean [Left Arm] 112 Blood Pressure Source Blood Pressure Source [Left Arm] Automatic Cuff Blood Pressure Position Blood Pressure Position [Left Arm] Sitting 02 Sat by Pulse Oximetry 98 96 95 Oxygen Delivery Method Room Air 10/14/23 19:59 Temperature 98.0 F Temperature Source Temporal Artery Scan Pulse Rate 60 Pulse Rate [Radial] Respiratory Rate 16 Blood Pressure 132/91 H Blood Pressure [Left Arm] Blood Pressure Mean Blood Pressure Mean [Left Arm] Blood Pressure Source Automatic Cuff Blood Pressure Source [Left Arm] Blood Pressure Position Sitting Blood Pressure Position [Left Arm] 02 Sat by Pulse Oximetry Oxygen Delivery Method Room Air Lab Data Lab results reviewed: Yes I reviewed the patient's lab results. Lab Results 10/14/23 17:20: WBC 8.1, RBC 4.28 L, Hgb 13.4 L, Hct 40.8 L, MCV 95.3 H, MCH 31.3 H, MCHC 32.9, RDW 15.8, Plt Count 215, MPV 8.4, Neut % (Auto) 70.3, Lymph % (Auto) 19.2, Cecil % (Auto) 7.3, Eos % (Auto) 2.7, Baso % (Auto) 0.6, Neut # (Auto) 5.7, Lymph # (Auto) 1.6, Cecil # (Auto) 0.6, Eos # (Auto) 0.2, Baso # (Auto) 0.0, PT 10.8, INR 1.00, D-Dimer 0.77 H, Sodium 138, Potassium 3.5, Chloride 100, Carbon Dioxide 31 H, Anion Gap 10.5, BUN 13, Creatinine 1.40 H, Estimated Creat Clear 63, Estimated GFR 51 L, Est GFR ( Amer) 62, Glucose 100, Calcium 9.2, Magnesium 1.8, Total Bilirubin 0.8, AST 59, ALT 39, Alkaline Phosphatase 47, Total Creatine Kinase 547 H*, NT-Pro-B Natriuret Pep 286 H, Total Protein 6.8, Albumin 4.1, Globulin 2.7, Albumin/Globulin Ratio 1.5, TSH 2.66 10/14/23 18:00: Urine Color Yellow, Urine Appearance Clear, Urine pH 6.5, Ur Specific [place] <= 1.005, Urine Protein Negative, Urine Glucose (UA) Negative, Urine Ketones Negative, Urine Blood Negative, Urine Nitrate Negative, Urine Bilirubin Negative, Urine Urobilinogen 0.2, Ur Leukocyte Esterase Negative, Urine RBC None, Urine WBC None, Ur Squamous Epith Cells None, Urine Bacteria None 10/14/23 17:20 10/14/23 17:20 Orders (Tests/Meds): ED MEDICATIONS Generic Name Dose Route Start Last Admin Trade Name Freq PRN Reason Stop Dose Admin Acetaminophen 650 mg 10/14/23 19:56 Acetaminophen 325mg Tab PO 11/13/23 19:55 Q4HP PRN Fever or Mild Pain (1-3) Heparin Sodium (Porcine) 5,000 unit 10/14/23 20:00 10/14/23 20:44 Heparin Sodium 5,000 Unit/Ml Vial SQ 07/12/24 19:59 5,000 unit Q8H GINGER Administration Hydromorphone HCl 1 mg 10/14/23 19:56 Hydromorphone 2mg/Ml Syringe IV 11/13/23 19:55 Q6HP PRN Severe Pain (7-10) Lactated Ringer's 1,000 mls @ 100 mls/hr 10/14/23 20:00 10/14/23 20:43 Lactated Ringer's 1000 Ml Bag IV 11/13/23 19:59 100 mls/hr .Q10H GINGER Administration Olanzapine 5 mg 10/14/23 19:56 Olanzapine 5 Mg Odt Tablet SL 11/13/23 20:59 HS PRN Agitation Oxycodone/Acetaminophen 1 each 10/14/23 19:56 10/14/23 20:44 Oxycodone 10mg W/Apap 325mg Tablet PO 11/13/23 19:55 1 each Q6HP PRN Administration Breakthru Moderate Pain (4-6) Pantoprazole Sodium 40 mg 10/14/23 21:00 10/14/23 21:05 Pantoprazole 40mg Tablet PO 11/13/23 20:59 40 mg HS GINGER Administration Pramipexole Dihydrochloride 0.25 mg 10/14/23 21:00 10/14/23 20:48 Pramipexole 0.25mg Tab PO 11/13/23 20:59 Not Given HS GINGER Sodium Chloride 10 ml 10/14/23 19:56 Sodium Chloride 0.9% 10ml Flush Syringe IV 11/13/23 19:55 NEEDED PRN Maintain IV Site Discontinued Medications Generic Name Dose Route Start Last Admin Trade Name Freq PRN Reason Stop Dose Admin Acetaminophen 1,000 mg 10/14/23 17:48 10/14/23 18:06 Acetaminophen 1,000mg/100ml Vial IV 10/14/23 17:49 1,000 mg ONCE ONE Administration Lactated Ringer's 1,000 mls @ 999 mls/hr 10/14/23 17:48 10/14/23 18:06 Lactated Ringer's 1000 Ml Bag IV 10/14/23 18:48 999 mls/hr .Q1H1M ONE Administration Ketorolac Tromethamine 15 mg 10/14/23 17:48 10/14/23 18:06 Ketorolac 30mg/Ml Vial IV 10/14/23 17:49 15 mg ONCE ONE Administration Methocarbamol 500 mg 10/14/23 21:00 Methocarbamol 500mg Tablet PO 11/13/23 20:59 BID GINGER Methocarbamol 500 mg 10/14/23 18:08 10/14/23 18:09 Methocarbamol 500mg Tablet PO 10/14/23 18:09 500 mg ONCE ONE Administration Methylprednisolone Sodium Succinate 125 mg 10/14/23 17:48 10/14/23 18:06 Methylprednisolone Sod Succ 125mg Vial IV 10/14/23 17:49 125 mg ONCE ONE Administration ORDERS Category Date Time Status BNP [NT Pro Brain Natriuretic Pep.] Stat Lab 10/14/23 17:20 Completed Basic Metabolic Panel AMLAB Lab 10/15/23 06:00 Ordered CBC w/Auto Diff [Complete Blood Count Auto Diff] Stat Lab 10/14/23 17:20 Completed CK [Creatine Kinase] AMLAB Lab 10/15/23 06:00 Ordered CK [Creatine Kinase] Stat Lab 10/14/23 17:20 Completed CMP [Comprehensive Metabolic Panel] Stat Lab 10/14/23 17:20 Completed Complete Blood Count Auto Diff AMLAB Lab 10/15/23 06:00 Ordered D-Dimer Stat Lab 10/14/23 17:20 Completed INR [Prothrombin Time INR] Stat Lab 10/14/23 17:20 Completed Magnesium Stat Lab 10/14/23 17:20 Completed TSH [Thyroid Stimulating Hormone] Stat Lab 10/14/23 17:20 Completed UA [Urinalysis and Microscopic] Stat Lab 10/14/23 18:00 Completed CA venous doppler LE BI Routine Y 10/14/23 18:56 Ordered Medical Decision Narrative: In summary patient is a 63-year-old male who presents to the emergency department for evaluation of left lower extremity pain, asthenia, sciatica, bilateral dependent edema. Patient is hemodynamically stable upon arrival, afebrile. Physical exam is remarkable for sciatica, bilateral, right greater than left, dependent pitting edema, and tenderness to palpation of the lumbar spine and associated paraspinous muscles on the left. Patient is neurovascularly intact distally in the left lower extremity however has easily fatigable strength. Patient has an antalgic gait. Patient has no saddle anesthesia. Patient has normal heart sounds. Differential diagnosis includes sciatica versus neuroforaminal stenosis versus rhabdo versus heart failure versus DVT etc. Initial workup will be conducted with hematologic labs urinalysis. Initial interventions include Toradol Tylenol Solu-Medrol continuous cardiac monitoring and pulse oximetry. Initial workup reviewed by me shows the patient has significantly elevated CK along with elevated creatinine but preserved GFR and BUN. Upon repeat evaluation patient reports only minor improvement in his low back pain. Given this I had interactive discussion with hospital medicine about patient management and they have agreed to admit the patient for further evaluation and care P <Óscar Yost MD - Last Filed: 10/14/23 21:14> Vital Signs: 10/14/23 17:02 10/14/23 17:10 10/14/23 17:31 Temperature 98.1 F Temperature Source Oral Pulse Rate 68 71 Pulse Rate [Radial] 67 Respiratory Rate 18 Blood Pressure 146/95 H 144/105 H Blood Pressure [Left Arm] 146/95 H Blood Pressure Mean 111 118 Blood Pressure Mean [Left Arm] 112 Blood Pressure Source Blood Pressure Source [Left Arm] Automatic Cuff Blood Pressure Position Blood Pressure Position [Left Arm] Sitting 02 Sat by Pulse Oximetry 98 96 95 Oxygen Delivery Method Room Air 10/14/23 19:59 Temperature 98.0 F Temperature Source Temporal Artery Scan Pulse Rate 60 Pulse Rate [Radial] Respiratory Rate 16 Blood Pressure 132/91 H Blood Pressure [Left Arm] Blood Pressure Mean Blood Pressure Mean [Left Arm] Blood Pressure Source Automatic Cuff Blood Pressure Source [Left Arm] Blood Pressure Position Sitting Blood Pressure Position [Left Arm] 02 Sat by Pulse Oximetry Oxygen Delivery Method Room Air Lab Data Lab Results 10/14/23 17:20: WBC 8.1, RBC 4.28 L, Hgb 13.4 L, Hct 40.8 L, MCV 95.3 H, MCH 31.3 H, MCHC 32.9, RDW 15.8, Plt Count 215, MPV 8.4, Neut % (Auto) 70.3, Lymph % (Auto) 19.2, Cecil % (Auto) 7.3, Eos % (Auto) 2.7, Baso % (Auto) 0.6, Neut # (Auto) 5.7, Lymph # (Auto) 1.6, Cecil # (Auto) 0.6, Eos # (Auto) 0.2, Baso # (Auto) 0.0, PT 10.8, INR 1.00, D-Dimer 0.77 H, Sodium 138, Potassium 3.5, Chloride 100, Carbon Dioxide 31 H, Anion Gap 10.5, BUN 13, Creatinine 1.40 H, Estimated Creat Clear 63, Estimated GFR 51 L, Est GFR ( Amer) 62, Glucose 100, Calcium 9.2, Magnesium 1.8, Total Bilirubin 0.8, AST 59, ALT 39, Alkaline Phosphatase 47, Total Creatine Kinase 547 H*, NT-Pro-B Natriuret Pep 286 H, Total Protein 6.8, Albumin 4.1, Globulin 2.7, Albumin/Globulin Ratio 1.5, TSH 2.66 10/14/23 18:00: Urine Color Yellow, Urine Appearance Clear, Urine pH 6.5, Ur Specific [place] <= 1.005, Urine Protein Negative, Urine Glucose (UA) Negative, Urine Ketones Negative, Urine Blood Negative, Urine Nitrate Negative, Urine Bilirubin Negative, Urine Urobilinogen 0.2, Ur Leukocyte Esterase Negative, Urine RBC None, Urine WBC None, Ur Squamous Epith Cells None, Urine Bacteria None Orders (Tests/Meds): ED MEDICATIONS Generic Name Dose Route Start Last Admin Trade Name Freq PRN Reason Stop Dose Admin Acetaminophen 650 mg 10/14/23 19:56 Acetaminophen 325mg Tab PO 11/13/23 19:55 Q4HP PRN Fever or Mild Pain (1-3) Heparin Sodium (Porcine) 5,000 unit 10/14/23 20:00 10/14/23 20:44 Heparin Sodium 5,000 Unit/Ml Vial SQ 11/13/23 19:59 5,000 unit Q8H GINGER Administration Hydromorphone HCl 1 mg 10/14/23 19:56 Hydromorphone 2mg/Ml Syringe IV 11/13/23 19:55 Q6HP PRN Severe Pain (7-10) Lactated Ringer's 1,000 mls @ 100 mls/hr 10/14/23 20:00 10/14/23 20:43 Lactated Ringer's 1000 Ml Bag IV 11/13/23 19:59 100 mls/hr .Q10H GINGER Administration Olanzapine 5 mg 10/14/23 19:56 Olanzapine 5 Mg Odt Tablet SL 11/13/23 20:59 HS PRN Agitation Oxycodone/Acetaminophen 1 each 10/14/23 19:56 10/14/23 20:44 Oxycodone 10mg W/Apap 325mg Tablet PO 11/13/23 19:55 1 each Q6HP PRN Administration Breakthru Moderate Pain (4-6) Pantoprazole Sodium 40 mg 10/14/23 21:00 10/14/23 21:05 Pantoprazole 40mg Tablet PO 11/13/23 20:59 40 mg HS GINGER Administration Pramipexole Dihydrochloride 0.25 mg 10/14/23 21:00 10/14/23 20:48 Pramipexole 0.25mg Tab PO 11/13/23 20:59 Not Given HS GINGER Sodium Chloride 10 ml 10/14/23 19:56 Sodium Chloride 0.9% 10ml Flush Syringe IV 11/13/23 19:55 NEEDED PRN Maintain IV Site Discontinued Medications Generic Name Dose Route Start Last Admin Trade Name Freq PRN Reason Stop Dose Admin Acetaminophen 1,000 mg 10/14/23 17:48 10/14/23 18:06 Acetaminophen 1,000mg/100ml Vial IV 10/14/23 17:49 1,000 mg ONCE ONE Administration Lactated Ringer's 1,000 mls @ 999 mls/hr 10/14/23 17:48 10/14/23 18:06 Lactated Ringer's 1000 Ml Bag IV 10/14/23 18:48 999 mls/hr .Q1H1M ONE Administration Ketorolac Tromethamine 15 mg 10/14/23 17:48 10/14/23 18:06 Ketorolac 30mg/Ml Vial IV 10/14/23 17:49 15 mg ONCE ONE Administration Methocarbamol 500 mg 10/14/23 21:00 Methocarbamol 500mg Tablet PO 11/13/23 20:59 BID GINGER Methocarbamol 500 mg 10/14/23 18:08 10/14/23 18:09 Methocarbamol 500mg Tablet PO 10/14/23 18:09 500 mg ONCE ONE Administration Methylprednisolone Sodium Succinate 125 mg 10/14/23 17:48 10/14/23 18:06 Methylprednisolone Sod Succ 125mg Vial IV 10/14/23 17:49 125 mg ONCE ONE Administration ORDERS Category Date Time Status BNP [NT Pro Brain Natriuretic Pep.] Stat Lab 10/14/23 17:20 Completed Basic Metabolic Panel AMLAB Lab 10/15/23 06:00 Ordered CBC w/Auto Diff [Complete Blood Count Auto Diff] Stat Lab 10/14/23 17:20 Completed CK [Creatine Kinase] AMLAB Lab 10/15/23 06:00 Ordered CK [Creatine Kinase] Stat Lab 10/14/23 17:20 Completed CMP [Comprehensive Metabolic Panel] Stat Lab 10/14/23 17:20 Completed Complete Blood Count Auto Diff AMLAB Lab 10/15/23 06:00 Ordered D-Dimer Stat Lab 10/14/23 17:20 Completed INR [Prothrombin Time INR] Stat Lab 10/14/23 17:20 Completed Magnesium Stat Lab 10/14/23 17:20 Completed TSH [Thyroid Stimulating Hormone] Stat Lab 10/14/23 17:20 Completed UA [Urinalysis and Microscopic] Stat Lab 10/14/23 18:00 Completed CA venous doppler LE BI Routine Y 10/14/23 18:56 Ordered Medical Decision Narrative: In summary patient is a 63-year-old male who presents to the emergency department for evaluation of left lower extremity pain, asthenia, sciatica, bilateral dependent edema. Patient is hemodynamically stable upon arrival, afebrile. Physical exam is remarkable for sciatica, bilateral, right greater than left, dependent pitting edema, and tenderness to palpation of the lumbar spine and associated paraspinous muscles on the left. Patient is neurovascularly intact distally in the left lower extremity however has easily fatigable strength. Patient has an antalgic gait. Patient has no saddle anesthesia. Patient has normal heart sounds. Differential diagnosis includes sciatica versus neuroforaminal stenosis versus rhabdo versus heart failure versus DVT etc. Initial workup will be conducted with hematologic labs urinalysis. Initial interventions include Toradol Tylenol Solu-Medrol continuous cardiac monitoring and pulse oximetry. Initial workup reviewed by me shows the patient has significantly elevated CK along with elevated creatinine but preserved GFR and BUN. Upon repeat evaluation patient reports only minor improvement in his low back pain. Given this I had interactive discussion with hospital medicine about patient management and they have agreed to admit the patient for further evaluation and care I was consulted by the [facility], and we discussed the complexity of the problems being addressed. I approved the treatment and management plan for this patient?s care in the Emergency Department, thus performing a substantive portion of the medical decision making. Óscar Yost MD Critical Care <BERTHA Reyes - Last Filed: 10/14/23 20:22> Critical Care Time Critical Care Time: No
[2023-10-14 17:10] VITALS: BP 146/95; PULSE 68; O2SAT 96
--- NOTE | 2023-10-14 17:23 | PC.NURSE ---
YOGESH CRUZ AT BEDSIDE
[2023-10-14 17:31] VITALS: BP 144/105; PULSE 71; O2SAT 95
[2023-10-14 18:01] LABS: Basophils % 0.6 % (0.1-2.0); Eosinophils # 0.2 K/mm3 (0.0-0.4); Eosinophils % 2.7 % (0.1-12.0); Hematocrit 40.8 % (42.0-52.0); Hemoglobin 13.4 g/dL (14.1-18.0); Lymphocytes # 1.6 K/mm3 (0.7-4.5); Lymphocytes % 19.2 % (10-50); Mean Corpuscular HGB Conc 32.9 g/dL (31.8-35.4); Mean Corpuscular Hemoglobin 31.3 pg (27.0-31.2); Mean Corpuscular Volume 95.3 fl (80-94); Mean Platelet Volume 8.4 fl (7.4-10.4); Monocytes # 0.6 K/mm3 (0.1-1.0); Monocytes % 7.3 % (1.7-9.3); Neutrophils # 5.7 K/mm3 (1.8-7.8); Neutrophils % 70.3 % (37.0-80.0); Platelet Count 215 K/mm3 (142-424); Red Blood Count 4.28 M/mm3 (4.60-6.20); Red Cell Distribution Width 15.8 % (11.5-17.5); White Blood Count 8.1 K/mm3 (4.8-10.8)
--- NOTE | 2023-10-14 18:05 | PC.NURSE ---
bladder scan prior to voiding 421 ml or urine noted, after voiding no urine noted in bladder
[2023-10-14 18:06] LABS: Microscopic, Urine URINE MICROSCOPIC (MICROSCOPIC)
[2023-10-14] MEDS: ACETAMINOPHEN 1,000MG/100ML VIAL 1000 MG IV (18:06)
[2023-10-14] MEDS: LACTATED RINGERS 1000ML 1,000 ML 999 ML IV (18:06)
[2023-10-14] MEDS: METHYLPREDNISOLONE SOD SUCC 125MG VIAL 125 MG IV (18:06)
[2023-10-14] MEDS: KETOROLAC 30MG/ML VIAL 15 MG IV (18:06)
[2023-10-14] MEDS: METHOCARBAMOL 500MG TABLET 500 MG PO (18:09)
[2023-10-14 18:10] LABS: Chloride 100 mmol/L (98-107)
[2023-10-14 18:11] LABS: Potassium 3.5 mmoL/L (3.5-5.1); Sodium 138 mmol/L (136-145)
[2023-10-14 18:13] LABS: Alanine Aminotransferase 39 U/L (12-78); Alkaline Phosphatase 47 U/L (38-126); Aspartate Amino Transferase 59 U/L (17-59); Bilirubin,Total 0.8 mg/dl (0.2-1.3); Blood Urea Nitrogen 13 mg/dl (9-20); Creatinine Clearance Estimated 63 mL/min (50-200); Estimated Glomerular Filt Rate 51 ml/min (>60); GFR (African American) 62 ML/MIN (>60)
[2023-10-14 18:14] LABS: Albumin Level 4.1 g/dl (3.5-5.0); Albumin/Globulin Ratio 1.5 (1.1-1.8); Anion Gap 10.5 mEq/L (5-15); Calcium 9.2 mg/dl (8.4-10.2); Carbon Dioxide 31 mmol/L (22.0-30.0); Creatine Kinase 547 U/L (55-170); Globulin 2.7 g/dL (1.3-3.2); Glucose 100 mg/dl (74-100); Prothrombin Time 10.8 seconds (10.1-12.5); Total Protein,Serum 6.8 g/dl (6.3-8.2)
[2023-10-14 18:21] LABS: Magnesium 1.8 mg/dl (1.6-2.3)
[2023-10-14 18:31] LABS: NT Pro Brain Natriuretic Pep. 286 pg/mL (0-125)
[2023-10-14 18:45] LABS: Thyroid Stimulating Hormone 2.66 uIU/mL (0.465-4.68)
[2023-10-14 18:48] LABS: Appearance,Urine CLEAR (Clear); Bilirubin,Urine Negative (Negative); Blood, Urine Negative (Negative); Color,Urine YELLOW (Yellow); Glucose,Urine (UA) Negative (Negative); Ketones,Urine Negative (Negative); Leukocyte Esterase,Urine Negative (Negative); Nitrate,Urine Negative (Negative); PH,Urine 6.5 (5.0-8.5); Protein,Urine Negative (Negative); Specific Gravity, Urine <= 1.005 (1.005-1.030); Urobilinogen,Urine 0.2 EU/dl (0.2)
[2023-10-14 18:58] LABS: D-Dimer 0.77 ug/mL (0.0-0.5)
--- NOTE | 2023-10-14 19:28 | PC.NURSE ---
rounded on pt at this time. pt voices no needs
--- NOTE | 2023-10-14 19:50 | PC.NURSE ---
called warehouse order selector for bed assignment at this time, pt being admitted to hospitalist with [facility]
[2023-10-14 19:59] VITALS: BP 132/91; PULSE 60; RESP 16; TEMP 36.7; O2SAT 98
--- NOTE | 2023-10-14 20:08 | PC.NURSE ---
Patient arrived to floor via wheelchair from ED at 20:05.
[2023-10-14 20:09] VITALS: BP 125/86; PULSE 55; RESP 17; TEMP 36.9; O2SAT 97; BMI 27.1
[2023-10-14] MEDS: LACTATED RINGERS 1000ML 1,000 ML 100 ML IV (20:43)
[2023-10-14] MEDS: OXYCODONE 10MG W/APAP 325MG TABLET 1 EACH PO (20:44)
[2023-10-14] MEDS: HEPARIN SODIUM 5,000 UNIT/ML VIAL 5000 UNIT SQ (20:44)
--- NOTE | 2023-10-14 20:55 | EXP.HP ---
History of Present Illness *Admission Date: 10/14/23 *Reason for visit:: Intractable pain weakness *History of present illness: This is a very pleasant 63-year-old male with a past medical history of degenerative disc disease status post lumbar laminectomy, chronic low back pain, chronic neck pain who presents emergency department today with complaints of continued lower back pain and worsening weakness of his lower extremities. He reports severe sciatic pain that is worse than his typical but also reports increased weakness of his lower extremities, left greater than right. Also states that he has some tight swelling of his calfs but is not typically there. He denies chest pain but does endorse mild shortness of breath in the recent days. Denies any fever or cough. Denies any dysuria or saddle paresthesias. Does endorse prior history of heatstroke 2 years ago. Also endorses multiple COVID infections over the past several years including generalized weakness associated with this. He states that his generalized weakness started about 2 to 3 days ago but is now most prominent in his left lower extremity. He reports this is a functional weakness not a focal neurodeficit. 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 States that he fell at a basketball game a couple days secondary to lower extremity weakness. He also endorses episodic bruising episodes unrelated to injury for which he spoke to his PCP about. Emergency department workup notable for elevated CPK of 547, elevated creatinine of 1.4 which is slightly up from baseline. D-dimer of 0.77. No leukocytosis noted. Mildly elevated BNP of 286. Given his elevated CPK and elevated creatinine, he will be admitted for further IV hydration and workup. He is admitted to the hospital service for further evaluation management.. [facility] Disclaimer: The information contained in this section may have been updated after the patient was seen, as this information can be updated by other users. Medical History Depression Hyperlipidemia Hypertension Surgical History History of esophagogastroduodenoscopy (EGD) History of colonoscopy History of neck surgery History of hip surgery History of tonsillectomy Family History Other Colon cancer Family history of melanoma Family history of pancreatic cancer Heart disease Social History (Updated 10/14/23 @ 20:34 by Maryjane Patel RN) Smoking Status: Never smoker alcohol intake: current alcohol intake frequency: a few times a month substance use type: denies use current occupational status: employed Travel in the last 8 weeks: None household members: other housing: house current occupation: self empl caffeine: Yes Review of Systems Review of Systems Review of systems (narrative): Negative except for HPI Meds Home Medications and Allergies Home Medications Medication Instructions Recorded Confirmed Type testosterone 75 mg implant pellet 75 mg implant .3x ayear Supplement 02/14/19 10/14/23 History (Testopel) sildenafil (pulm.hypertension) 20 20 mg PO DIRECTED PRN . 01/21/23 10/14/23 History mg tablet lidocaine 5 % topical patch 1 patch topical DAILY #15 ea 05/28/23 10/14/23 Rx (Lidoderm) pantoprazole 40 mg tablet,delayed See Rx Instructions .Route 08/13/23 10/14/23 Rx release .COMPLEX #30 tabs valsartan 160 1 tab PO DAILY bp #90 tabs 08/13/23 10/14/23 Rx mg-hydrochlorothiazide 25 mg tablet bisoprolol fumarate 10 mg tablet See Rx Instructions .Route 09/15/23 10/14/23 Rx .COMPLEX #30 tabs atorvastatin 10 mg tablet 10 mg PO DAILY #30 tabs 10/05/23 10/14/23 Rx olanzapine 5 mg tablet 5 mg PO HS #30 tabs 10/05/23 10/14/23 Rx oxycodone-acetaminophen 10 mg-325 1 tab PO Q6H PRN post op pain #120 10/05/23 10/14/23 Rx mg tablet tabs pramipexole 0.25 mg tablet 0.25 mg PO HS #30 tabs 10/05/23 10/14/23 Rx spironolactone 25 mg tablet See Rx Instructions .Route 10/08/23 10/14/23 Rx .COMPLEX #30 tabs New Prescriptions to Start Prescriptions: Allergies Allergy/AdvReac Type Severity Reaction Status Date / Time No Known Allergies Allergy Verified 10/05/23 08:38 Exam Data for Last 24 hours Vital signs and Labs for Last 24 Hours: Temp Pulse Resp BP Pulse Ox O2 Del Method 98.4 F 55 L 17 125/86 97 Room Air 10/14/23 20:10/14/23 20:10/14/23 20:10/14/23 20:10/14/23 20:10/14/23 20:09 Laboratory Results - last 24 hr 10/14/23 17:20: WBC 8.1, RBC 4.28 L, Hgb 13.4 L, Hct 40.8 L, MCV 95.3 H, MCH 31.3 H, MCHC 32.9, RDW 15.8, Plt Count 215, MPV 8.4, Neut % (Auto) 70.3, Lymph % (Auto) 19.2, [place] % (Auto) 7.3, Eos % (Auto) 2.7, Baso % (Auto) 0.6, Neut # (Auto) 5.7, Lymph # (Auto) 1.6, [place] # (Auto) 0.6, Eos # (Auto) 0.2, Baso # (Auto) 0.0, PT 10.8, INR 1.00, D-Dimer 0.77 H, Sodium 138, Potassium 3.5, Chloride 100, Carbon Dioxide 31 H, Anion Gap 10.5, BUN 13, Creatinine 1.40 H, Estimated Creat Clear 63, Estimated GFR 51 L, Est GFR ( Amer) 62, Glucose 100, Calcium 9.2, Magnesium 1.8, Total Bilirubin 0.8, AST 59, ALT 39, Alkaline Phosphatase 47, Total Creatine Kinase 547 H*, NT-Pro-B Natriuret Pep 286 H, Total Protein 6.8, Albumin 4.1, Globulin 2.7, Albumin/Globulin Ratio 1.5, TSH 2.66 10/14/23 18:00: Urine Color Yellow, Urine Appearance Clear, Urine pH 6.5, Ur Specific [place] <= 1.005, Urine Protein Negative, Urine Glucose (UA) Negative, Urine Ketones Negative, Urine Blood Negative, Urine Nitrate Negative, Urine Bilirubin Negative, Urine Urobilinogen 0.2, Ur Leukocyte Esterase Negative, Urine RBC None, Urine WBC None, Ur Squamous Epith Cells None, Urine Bacteria None I & O for Last 24 hours: Intake & Output 10/11/23 10/12/23 10/13/23 10/14/23 23:59 23:59 23:59 23:59 Intake Total 1000 / 1000 Output Total 0 / 0 Balance 1000 / 1000 Weight 87.815 kg Constitutional Constitutional: no acute distress *Routine HEENT Exam Head: Present normocephalic Eye: Present EOMI and PERRL ENT: Present mucous membranes moist *Routine Neck Exam Neck: Present supple; Absent lymphadenopathy *Routine Respiratory Exam Respiratory: Present CTA bilaterally *Routine Cardiovascular Exam Cardiovascular: Present RRR *Routine Abdominal Exam Abdominal: Present soft and normoactive bowel sounds; Absent tenderness *Routine Rectal Exam Rectal:: deferred *Routine Genitalia Exam Genitalia:: deferred *Routine Extremities Exam Extremities: Absent cyanosis, clubbing or edema *Routine Skin Exam Skin: Present warm; Absent rash *Routine Neurological Exam Neurological: Present alert and oriented X3 Assessment and Plan *Assessment and plan (1) Rhabdomyolysis: Status: Acute Qualifiers: Rhabdomyolysis type: non-traumatic Qualified Code(s): M62.82 - Rhabdomyolysis Category: Medical Code(s): M62.82 - Rhabdomyolysis (2) Chronic pain syndrome: Status: Acute Category: Medical Code(s): G89.4 - Chronic pain syndrome (3) AJ (acute kidney injury): Status: Acute Category: Medical Code(s): N17.9 - Acute kidney failure, unspecified Plan Admit to medicine Rhabdomyolysis Mild, CPK 547. Patient does endorse being out in the heat a little bit this week. Will hydrate overnight and redraw in a.m. Avoid nephrotoxic medications Recently placed on statin medication, will hold for now given likely contributing insult AJ Likely prerenal in nature. Continue maintenance IV fluids. Avoid nephrotoxic medications Bilateral lower extremity edema Nonpitting edema to bilateral lower extremities, right greater than left. Patient states that his left leg has always been a little bit smaller secondary to a prior Achilles rupture. Tightness noted around the calves but compartments soft. Mild decrease in strength to the left lower extremity compared to the right Will obtain bilateral lower extremity Dopplers in a.m. to rule out DVT Elevated D-dimer Dopplers in a.m. Patient does complain of mild shortness of breath. Would benefit from CT PE scan in a.m. after IV hydration Chronic pain Lumbago sciatica Likely from contributing factor to continued pain and weakness of the lower extremities. Will obtain inflammatory makers and vitamin levels to rule out other causes Continue IV and oral pain medication DVT PPx subcu heparin
[2023-10-14 20:59] VITALS: PULSE 55
[2023-10-14] MEDS: PANTOPRAZOLE 40MG TABLET 40 MG PO (21:05)
[2023-10-14 21:31] LABS: Coronavirus 19, PCR Not Detected (NotDetected); Influenza A, PCR Not Detected (NotDetected); Influenza B, PCR Not Detected (NotDetected)
[2023-10-14 21:50] LABS: C-Reactive Protein 2.8 mg/L (0-4)
[2023-10-14 21:51] LABS: Erythrocyte Sedimentation Rate 10 mm/hr (0-20)
[2023-10-14 22:04] LABS: 25-OH Vitamin D, Total 18.7 ng/mL (30-100)
[2023-10-14 22:54] LABS: Vitamin B12 > 1000 pg/mL (239-931)
[2023-10-15] VITALS: BP 126/83; PULSE 77; RESP 16; TEMP 36.6; O2SAT 93
[2023-10-15] MEDS: HEPARIN SODIUM 5,000 UNIT/ML VIAL 5000 UNIT SQ ×2 (03:53→11:19)
[2023-10-15] MEDS: OXYCODONE 10MG W/APAP 325MG TABLET 1 EACH PO ×2 (03:56→11:37)
[2023-10-15 04:00] VITALS: BP 127/74; PULSE 84; RESP 16; TEMP 37.1; O2SAT 94; BMI 27.1
--- NOTE | 2023-10-15 04:38 | PC.NURSE ---
Patient is A/O x4. Patient slept well thus far in shift. Patient voiced c/o of pain x3, medicated per MAR with relief. Patient reports pain mainly in left hip/leg and lower back. Patient ambulates to bathroom independently to void. remains at bedside. Call light within reach, bed in low position.
[2023-10-15] MEDS: ACETAMINOPHEN 325MG TAB 650 MG PO ×2 (05:41→14:44)
[2023-10-15] MEDS: HYDROMORPHONE 2MG/ML SYRINGE 1 MG IV ×2 (06:13)
[2023-10-15] MEDS: LACTATED RINGERS 1000ML 1,000 ML 100 ML IV (06:15)
[2023-10-15 06:31] LABS: Chloride 103 mmol/L (98-107); Sodium 137 mmol/L (136-145)
[2023-10-15 06:33] LABS: Basophils % 0.1 % (0.1-2.0); Blood Urea Nitrogen 17 mg/dl (9-20); Creatinine Clearance Estimated 77 mL/min (50-200); Eosinophils % 0.1 % (0.1-12.0); Estimated Glomerular Filt Rate 61 ml/min (>60); GFR (African American) 74 ML/MIN (>60); Hematocrit 39.4 % (42.0-52.0); Hemoglobin 12.9 g/dL (14.1-18.0); Lymphocytes # 0.7 K/mm3 (0.7-4.5); Lymphocytes % 5.7 % (10-50); Mean Corpuscular HGB Conc 32.7 g/dL (31.8-35.4); Mean Corpuscular Hemoglobin 31.9 pg (27.0-31.2); Mean Corpuscular Volume 97.5 fl (80-94); Mean Platelet Volume 8.5 fl (7.4-10.4); Monocytes # 0.1 K/mm3 (0.1-1.0); Neutrophils # 10.6 K/mm3 (1.8-7.8); Neutrophils % 93.2 % (37.0-80.0); Platelet Count 221 K/mm3 (142-424); Red Blood Count 4.04 M/mm3 (4.60-6.20); Red Cell Distribution Width 15.7 % (11.5-17.5); White Blood Count 11.4 K/mm3 (4.8-10.8)
[2023-10-15 06:34] LABS: Calcium 8.9 mg/dl (8.4-10.2); Carbon Dioxide 29 mmol/L (22.0-30.0); Creatine Kinase 306 U/L (55-170); Glucose 170 mg/dl (74-100)
[2023-10-15 06:42] LABS: MANUAL DIFFERENTIAL MANUAL DIFFERENTIAL (MANUAL DIFF)
--- NOTE | 2023-10-15 07:32 | HMH.PHAINT1 ---
Pharmacy Intervention Comments: HOME MEDICATION LIST COMPLETE USING LIST FROM OUTPATIENT PHARMACY
[2023-10-15 07:37] LABS: Lymphocytes % 7 % (10-50); Neutrophils % 93 % (42-76); Total Cells Counted 100
[2023-10-15 07:38] LABS: Platelet Estimate Normal; RBC Morphology Normal
[2023-10-15 08:00] VITALS: BP 144/95; PULSE 82; RESP 16; TEMP 36.7; O2SAT 93
[2023-10-15 11:13] LABS: D-Dimer 0.84 ug/mL (0.0-0.5)
[2023-10-15] MEDS: IRBESARTAN 150MG TAB 150 MG PO (11:19)
[2023-10-15] MEDS: BISOPROLOL 5MG TABLET 10 MG PO (11:19)
--- NOTE | 2023-10-15 11:53 | HMH.OTEV ---
OT Inpatient Evaluation Rehab OT IP Evaluation Start: 10/15/23 10:26 Freq: ONCE Status: Active Protocol: Document 10/15/23 11:41 JENIMARY (Rec: 10/15/23 11:53 MARTIN [id number]) Rehab OT IP Assessment Subjective History This is a very pleasant 63- year-old male with a past medical history of degenerative disc disease status post lumbar laminectomy , chronic low back pain, chronic neck pain who presents emergency department today with complaints of continued lower back pain and worsening weakness of his lower extremities. He reports severe sciatic pain that is worse than his typical but also reports increased weakness of his lower extremities, left greater than right. Also states that he has some tight swelling of his calfs but is not typically there. He denies chest pain but does endorse mild shortness of breath in the recent days. Denies any fever or cough. Denies any dysuria or saddle paresthesias. Does endorse prior history of heatstroke 2 years ago. Also endorses multiple COVID infections over the past several years including generalized weakness associated with this. He states that his generalized weakness started about 2 to 3 days ago but is now most prominent in his left lower extremity. He reports this is a functional weakness not a focal neurodeficit. 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 States that he fell at a basketball game a couple days secondary to lower extremity weakness. He also endorses episodic bruising episodes unrelated to injury for which he spoke to his PCP about. Emergency department workup notable for elevated CPK of 547, elevated creatinine of 1. 4 which is slightly up from baseline. D-dimer of 0.77. No leukocytosis noted. Mildly elevated BNP of 286. Given his elevated CPK and elevated creatinine, he will be admitted for further IV hydration and workup. He is admitted to the hospital service for further evaluation management. Patient lives at home with in 1 story home wiht 1-2 RAFA. Independnet with all ADLs and fx'l mobility. Continues to farm daily. Subjective I can get up. I just hurt. Analysis Patient's ability to completed bed mobility, transfer and fx'l mobility. Indepedent with all tasks. No LOB noted. Objective Patient Orientation Person,Name,Age,Birthday,Year Right Upper Extremity Gross ROM WFL Left Upper Extremity Gross ROM WFL Bed Mobility bed mobility - supine/sit Assist Level Independent Transfer Training Sit/Stand/Pivot Transfer Assist Level Independent Chair Transfer Ability Independent Chair Transfer Technique Sit to/from Ambulatory Chair Transfer Assistive Devices None Rehab OT IP prob,goals,plan Problems Date of Evaluation: 10/15/23 Rehab Potential Rehab Potential Innapropriate for Skilled Therapy Discharge Plan OT Discharge Plan Recommend patient to return home after medical d/c. Eval Complexity Eval Charge Codes 94943 - Low Complexity PHYSICIAN CERTIFICATION: I certify the specified therapy services for Ian Chavira are required, authorized, and reviewed every 30 days.
[2023-10-15 12:00] VITALS: BP 140/60; PULSE 80; RESP 16; TEMP 36.6; O2SAT 96
--- NOTE | 2023-10-15 12:09 | CT_ITS ---
FINAL REPORT TECHNIQUE: Then section axial CT images of the chest were obtained with contrast. Three-D reformatted images were also obtained.This study was performed with techniques to keep radiation doses as low as reasonably achievable (ALARA). Individualized dose reduction techniques using automated exposure control or adjustment of mA and/or kV according to the patient's size were employed. CLINICAL HISTORY: PE COMPARISON: None FINDINGS: There is no evidence of pulmonary embolism. There is no evidence of thoracic aortic aneurysm or dissection. There is no evidence of mediastinal or hilar mass or adenopathy. There is no evidence of pulmonary mass or suspicious nodule. No localized inflammatory process is seen within the lungs. There is mild scarring or fibrosis present. Limited images of the upper abdomen reveal that the gallbladder is partially collapsed. IMPRESSION: No evidence of pulmonary embolism. No mass or localized inflammatory process. Reviewed, Interpreted and Dictated by Ian Nieves III, MD Transcribed by Mindy Bhardwaj Authenticated and [facility]
[2023-10-15] MEDS: 0.9 % SODIUM CHLORIDE 50 ML VIAL 40 ML IV (12:40)
[2023-10-15] MEDS: SODIUM CHLORIDE 0.9% 10ML SYR (RAD ONLY) 10 ML IV (12:40)
[2023-10-15] MEDS: IOPAMIDOL-370 (76%);100ML BOTTLE 70 ML IV (12:41)
--- NOTE | 2023-10-15 13:44 | HMH.PTEV ---
Physical Therapy Evaluation Rehab PT IP Evaluation Start: 10/15/23 10:26 Freq: ONCE Status: Active Protocol: Document 10/15/23 13:36 ASHLI (Rec: 10/15/23 13:44 ASHLI [email or web address]) Subjective/History History History Per H&P: This is a very pleasant 63- year-old male with a past medical history of degenerative disc disease status post lumbar laminectomy , chronic low back pain, chronic neck pain who presents emergency department today with complaints of continued lower back pain and worsening weakness of his lower extremities. He reports severe sciatic pain that is worse than his typical but also reports increased weakness of his lower extremities, left greater than right. Also states that he has some tight swelling of his calfs but is not typically there. He denies chest pain but does endorse mild shortness of breath in the recent days. Denies any fever or cough. Denies any dysuria or saddle paresthesias. Does endorse prior history of heatstroke 2 years ago. Also endorses multiple COVID infections over the past several years including generalized weakness associated with this. He states that his generalized weakness started about 2 to 3 days ago but is now most prominent in his left lower extremity. He reports this is a functional weakness not a focal neurodeficit. 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 States that he fell at a basketball game a couple days secondary to lower extremity weakness. He also endorses episodic bruising episodes unrelated to injury for which he spoke to his PCP about. Subjective Subjective Pt was IND with all mobility prior to admission. Pt works on a [employer]. New diagnosis of cancer in past 12 No months? Rehab PT IP Eval Objective Appearance Patient Behavior Appropriate,Cooperative Patient Orientation Person,Place,Situation Difficulty following instructions none Speech Pattern Clear Ambulation Patient Able to Ambulate Yes Ambulation Observation IP General Gait Pattern Observation No Deviations/Normal Ambulation Distance (feet) 20 Ambulation Assistive Device None Ambulation Ability Independent Balance Ability to Arise Able, w/o using arms Sitting Balance Steady, safe Standing Balance Narrow stance w/o support Transfers Bed Transfer Ability Independent Sit to Stand Bed Transfer Ability Independent Rehab PT IP prob,goals,plan Problems Date of Evaluation: 10/15/23 Rehab Potential Rehab Potential Innapropriate for Skilled Therapy Discharge Plan PT Discharge Plan Pt was IND with all mobility. Safe to d/c home when deemed medically necessary d/t current level of mobility, home set-up, and family support. Pt not appropriate for skilled acute care PT at this time d/t pt?s mobility being at baseline. Eval Complexity Eval Charge Codes 89522 - Low Complexity PHYSICIAN CERTIFICATION: I certify the specified therapy services for Ian Chavira are required, authorized, and reviewed every 30 days.
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
--- NOTE | 2023-10-15 18:56 | CA_ITS ---
FINAL REPORT CLINICAL HISTORY: Bilateral lower extremity edema, HTN COMPARISON: None FINDINGS: Color Doppler, duplex Doppler and compression sonography of the bilateral lower extremities was performed. There is no evidence of deep venous thrombosis from the level of the groin to the calf. The deep veins are patent and compressible. IMPRESSION: No evidence of deep venous thrombosis bilateral lower extremities. Reviewed, Interpreted and Dictated by Ian Nieves III, MD Transcribed by Gavi Javed Authenticated and [facility]
--- NOTE | 2023-10-19 17:15 | CARE MANAGER ---
Attempted to contact patient x2 related to hospital discharge. Left VM message. JAN Quiroz
== END 2023-10-15 15:55 | disposition home or self-care (01) ==
LOC: ER 19:51 → 2ND 19:53
PROVIDERS: Nurse Practitioner Acute Care; Physician Assistant; Admitting Provider Internal Medicine; Emergency Provider Emergency Medicine; PCP Internal Medicine; Visit Provider Internal Medicine
DX: M62.82 Rhabdomyolysis (principal); Z79.899 Other long term (current) drug therapy; R29.6 Repeated falls; I10 Essential (primary) hypertension; E78.5 Hyperlipidemia, unspecified; G89.4 Chronic pain syndrome; N17.9 Acute kidney failure, unspecified; M51.17 Intervertebral disc disorders with radiculopathy, lumbosacral region
CPT/HCPCS: 36415; 71275; 80048; 80053; 81001; 82306; 82550; 82607; 82746; 83735; 83880; 84443; 85007; 85025; 85378; 85610; 85651; 86140; 87636; 93970; 97161; 97165; 99285; G0378; J0131; J1170; J1644; J1885; J2930; J7120; Q9967

== ENCOUNTER 2023-11-10 17:55 | Outpatient (CLI) | payer MEDICAID, SELFPAY ==
--- NOTE | 2023-11-10 17:55 | MR_ITS ---
PROCEDURE INFORMATION: Exam: MR Lumbar Spine Without Contrast Exam date and time: 11/10/2023 6:00 PM Age: 63 years old Clinical indication: Low back pain; Patient HX: Lower back pain with left leg weakness x 2 months; Additional info: Chronic pain TECHNIQUE: Imaging protocol: Magnetic resonance imaging of the lumbar spine without contrast. COMPARISON: CT LUMBAR SPINE WO CON 05/28/2023 11:04 PM FINDINGS: Bones/joints: No fracture or bone lesions. Normal alignment. Spinal cord: Visualized cord, conus medullaris and cauda equina are unremarkable without compression. Conus medullaris terminates at L1. L1-L2: No significant disc bulge or herniation. No severe spinal canal stenosis. No significant neural foraminal narrowing. L2-L3: No significant disc bulge or herniation. No severe spinal canal stenosis. No significant neural foraminal narrowing. L3-L4: Large left posterolateral disc extrusion has superior and inferior migrating disc material or inflamed epidural fat causing rightward mass effect upon the dural sac and crowding of the nerve roots. Disc material displaces perineural fat in the left neural foramen. Posterior osteophytes and moderate disc space narrowing are unchanged from 05/28/2023. No intervertebral disc edema or vertebral body bone marrow edema. Modic 2 signal. L4-L5: Disc bulge osteophyte complex and short pedicles causes moderate to severe spinal stenosis that is unchanged. Mild facet hypertrophy. No significant neural foraminal narrowing. Mild to moderate disc space narrowing and Modic 2 signal.. L5-S1: Disc bulge osteophyte complex is unchanged. No severe spinal canal stenosis. No significant neural foraminal narrowing. Soft tissues: No paraspinal or retroperitoneal masses. IMPRESSION: 1. Left posterolateral disc extrusion at L3-L4 causes moderate to severe spinal stenosis and left foraminal stenosis. 2. Moderate to severe spinal stenosis at L4-L5 is unchanged from 05/28/2023 CT scan.
== END 2023-11-10 23:59 | disposition home or self-care (01) ==
LOC: RAD 17:55
PROVIDERS: PCP Internal Medicine; Visit Provider Internal Medicine
DX: M54.16 Radiculopathy, lumbar region (principal)
CPT/HCPCS: 72148

== ENCOUNTER 2023-12-07 10:54 | Outpatient (CLI) | payer MEDICAID, SELFPAY ==
[2023-12-07 18:29] LABS: Basophils % 0.4 % (0.1-2.0); Eosinophils # 0.1 K/mm3 (0.0-0.4); Eosinophils % 0.8 % (0.1-12.0); Hematocrit 41.3 % (42.0-52.0); Hemoglobin 13.5 g/dL (14.1-18.0); Lymphocytes # 1.4 K/mm3 (0.7-4.5); Lymphocytes % 14.4 % (10-50); Mean Corpuscular HGB Conc 32.6 g/dL (31.8-35.4); Mean Corpuscular Hemoglobin 31.9 pg (27.0-31.2); Mean Corpuscular Volume 97.9 fl (80-94); Mean Platelet Volume 9.9 fl (7.4-10.4); Monocytes # 0.7 K/mm3 (0.1-1.0); Monocytes % 6.9 % (1.7-9.3); Neutrophils # 7.6 K/mm3 (1.8-7.8); Neutrophils % 77.4 % (37.0-80.0); Platelet Count 280 K/mm3 (142-424); Red Blood Count 4.22 M/mm3 (4.60-6.20); Red Cell Distribution Width 14.5 % (11.5-17.5); White Blood Count 9.8 K/mm3 (4.8-10.8)
[2023-12-07 18:40] LABS: Alanine Aminotransferase 28 U/L (12-78); Albumin Level 4.2 g/dl (3.5-5.0); Albumin/Globulin Ratio 1.4 (1.1-1.8); Alkaline Phosphatase 53 U/L (38-126); Anion Gap 13.9 mEq/L (5-15); Aspartate Amino Transferase 34 U/L (17-59); Bilirubin,Total 0.9 mg/dl (0.2-1.3); Blood Urea Nitrogen 29 mg/dl (9-20); Calcium 10.2 mg/dl (8.4-10.2); Carbon Dioxide 28 mmol/L (22.0-30.0); Chloride 99 mmol/L (98-107); Chol/HDL Ratio 5.5 (1-3.5); Cholesterol 221 mg/dl (140-200); Creatine Kinase 151 U/L (55-170); Estimated Glomerular Filt Rate 38 ml/min (>60); GFR (African American) 46 ML/MIN (>60); Globulin 2.9 g/dL (1.3-3.2); Glucose 106 mg/dl (74-100); HDL Cholesterol 40 mg/dl (40-60); Potassium 3.9 mmoL/L (3.5-5.1); Sodium 137 mmol/L (136-145); Total Protein,Serum 7.1 g/dl (6.3-8.2); Triglycerides 164 mg/dl (30-150); VLDL Cholesterol 33 mg/dL (0-40)
[2023-12-07 18:51] LABS: Direct LDL Cholesterol 152.28 mg/dL (100-129)
== END 2023-12-07 23:59 | disposition home or self-care (01) ==
LOC: LAB.DROPOF 12-08 10:55
PROVIDERS: PCP Internal Medicine; Visit Provider Internal Medicine
DX: N17.9 Acute kidney failure, unspecified (principal); M62.82 Rhabdomyolysis; Z79.899 Other long term (current) drug therapy
CPT/HCPCS: 80053; 80061; 82550; 85025

== ENCOUNTER 2023-12-10 10:55 | Outpatient (CLI) | payer MEDICAID, SELFPAY ==
[2023-12-10 19:50] LABS: Iron 91 ug/dL (49-181)
[2023-12-10 20:00] LABS: Total Iron Binding Capacity 336 ug/dL (261-462)
[2023-12-10 20:25] LABS: Ferritin 514 ng/ml (17.9-464)
[2023-12-12 18:25] LABS: Peripheral Smear Review Scanned Result
== END 2023-12-10 23:59 | disposition home or self-care (01) ==
LOC: LAB.DROPOF 12-11 10:55
PROVIDERS: PCP Internal Medicine; Visit Provider Internal Medicine
DX: D64.9 Anemia, unspecified (principal)
CPT/HCPCS: 82728; 83540; 83550

== ENCOUNTER 2023-12-17 09:32 | Outpatient (CLI) | payer MEDICAID, SELFPAY ==
--- NOTE | 2023-12-17 09:34 | CA_ITS ---
APPROVED REPORT EXAM: Comprehensive 2D, Doppler, and color-flow Echocardiogram Family Service Aide: Ana M Ortiz RT(R) Ht: 5 ft 11 in Wt: 170lbs BSA: 1.97 BP: 137/80 mmHg Indications: dyspnea, edema, SOB, fatigue, weakness, VERONICA, ef 55% on echo 2021, HTN, CP 2D Dimensions Left Atrium 2.91 cm M: 3.0 - 4.0 LVEF (Garcia's) 52.30 % M: 52 - 72 LVOT 2.13 cm (M/F) 1.5-2.5 LV Volume 91.80 mL M: 62 - 150 LV Volume Index 46.6 mL/m2 M: 34 - 74 EF AP4 50.90 % EF AP2 53.9 % EF BP 52.3 % GL Strain -14.0 % M-Mode Dimensions RVDd 3.67 cm (0.9-2.6) LVDd 4.16 cm (3.5-5.7) Ao Diam 3.14 cm (2.0-3.7) LVDs 2.73 cm (3.5-5.7) IVSd 0.81 cm (0.6-1.1) PWd 0.76 cm (0.6-1.1) EF (Teich) 63.80% FS 34.40% EDV (Teich) 76.80 mL ESV (Teich) 27.80 mL LV Diastology E Decel Time 256 (160-240 msec) E/A Ratio 0.8 MED E' 10.4 (>= 7 cm/sec) E'/MED E' Ratio 6.02 (<= 14) LAT E' 13.7 (>= 10 cm/sec) E/LAT E' Ratio 4.57 (<= 14) Mitral Valve MV E Max Dwight. 63.0 (40-130 cm/s) MV A Velocity 76.0 (40-130 cm/s) E/A Ratio 0.82 MV Decel. Time 256 (160-240 ms) Left Ventricle The left ventricle is normal size. The left ventricular systolic function is normal. The left ventricular ejection fraction is within the normal range. There is normal left ventricular wall thickness. There is normal LV segmental wall motion. The left ventricular diastolic function is normal. LVEF is 55%. Right Ventricle The right ventricle is normal size. The right ventricular systolic function is normal. Atria The left atrium size is normal. The right atrium size is normal. There is no Doppler evidence of interatrial shunt. Aortic Valve The aortic valve is mildly thickened. There is no aortic valvular stenosis. No aortic regurgitation is present. Mitral Valve The mitral valve is normal in structure. No evidence of mitral valve stenosis. Mild mitral regurgitation. Tricuspid Valve The tricuspid valve leaflets are thin and pliable. Trace tricuspid regurgitation. There is insufficient TR jet to estimate RVSP. Pulmonic Valve The pulmonary valve is normal in structure. Trace pulmonic regurgitation. Great Vessels The aortic root is normal in size. The ascending aorta is not well visualized. IVC is normal in size and collapses >50% with inspiration. Pericardium There is no pericardial effusion. Other Information Study Quality: Fair Conclusion Normal biventricular systolic function. Mild MR. Electronically signed by : Tigist Conway MD 12/21/2023 05:06:12
== END 2023-12-17 23:59 | disposition home or self-care (01) ==
LOC: RT 09:33
PROVIDERS: PCP Internal Medicine; Visit Provider Physician Assistant
DX: R06.09 Other forms of dyspnea (principal); R53.83 Other fatigue; R53.1 Weakness
CPT/HCPCS: 93306

== ENCOUNTER 2023-12-30 09:40 | Outpatient (POV) | payer MEDICAID, SELFPAY ==
[2023-12-30 10:14] VITALS: BP 105/60; PULSE 50; RESP 16; O2SAT 97; BMI 23.3
--- NOTE | 2023-12-30 12:30 | A.OFFVIS_ITS ---
[facility] Disclaimer: The information contained in this section may have been updated after the patient was seen, as this information can be updated by other users. Medical History VERONICA (obstructive sleep apnea) Fatigue Depression Hyperlipidemia Hypertension Surgical History History of esophagogastroduodenoscopy (EGD) History of colonoscopy History of neck surgery History of hip surgery History of tonsillectomy Family History Other Colon cancer Family history of melanoma Family history of pancreatic cancer Heart disease Social History Smoking Status: Never smoker alcohol intake: current alcohol intake frequency: a few times a month substance use type: denies use current occupational status: unemployed Travel in the last 8 weeks: None household members: other housing: house current occupation: self empl caffeine: Yes PM Subjective & Objective Subjective Subjective:: Patient is a pleasant 63-year-old male who presents today for follow-up and worsening pain in his low back and legs. He does rate his pain a 5 out of 10. Patient states this has been going on over the last year or longer. He states that he did go and see Dr. Euceda office and that they were talking about doing a lumbar fusion however he is trying to postpone this as long as possible with the conservative treatment. Patient does describe his pain as a dull aching, throbbing sensation that does go into his upper legs. He states the pain does interfere with his ability perform activities of daily living such as cooking and cleaning. Patient has tried and failed conservative therapy including oral medications, heat and ice, topicals and continued at home stretching exercise for longer than 6 weeks. His [place] has been reviewed and is appropriate. Review of Systems: General: No recent weight changes, no fever, no sleep disturbances Respiratory: No cough, no shortness of air, no recurring pulmonary infections Cardiovascular/peripheral vascular: No chest pain, no palpitations, no edema, no shortness of breath Gastrointestinal: No new onset incontinence, normal bowel movements reported Genitourinary: No new onset incontinence Musculoskeletal: Low back pain, leg pain Psychiatric: [Normal mood/affect] Neurological: [Denies weakness in extremities], [denies balance issues] Pain at rest (0-10 scale): 5 Objective Objective:: Physical Exam: General: Alert and oriented x3, no acute distress, pleasant and cooperative Lungs: Respirations even and unlabored, symmetrical chest expansion Eyes: PERRL Musculoskeletal: Flexion and extension of lumbar [spine] somewhat guarded secondary to pain, [antalgic gait noted] point tenderness along left SI Neurological: Speech clear, no gross sensory deficit FINDINGS: Bones/joints: No fracture or bone lesions. Normal alignment. Spinal cord: Visualized cord, conus medullaris and cauda equina are unremarkable without compression. Conus medullaris terminates at L1. L1-L2: No significant disc bulge or herniation. No severe spinal canal stenosis. No significant neural foraminal narrowing. L2-L3: No significant disc bulge or herniation. No severe spinal canal stenosis. No significant neural foraminal narrowing. L3-L4: Large left posterolateral disc extrusion has superior and inferior migrating disc material or inflamed epidural fat causing rightward mass effect upon the dural sac and crowding of the nerve roots. Disc material displaces perineural fat in the left neural foramen. Posterior osteophytes and moderate disc space narrowing are unchanged from 05/28/2023. No intervertebral disc edema or vertebral body bone marrow edema. Modic 2 signal. L4-L5: Disc bulge osteophyte complex and short pedicles causes moderate to severe spinal stenosis that is unchanged. Mild facet hypertrophy. No significant neural foraminal narrowing. Mild to moderate disc space narrowing and Modic 2 signal.. L5-S1: Disc bulge osteophyte complex is unchanged. No severe spinal canal stenosis. No significant neural foraminal narrowing. Soft tissues: No paraspinal or retroperitoneal masses. IMPRESSION: 1. Left posterolateral disc extrusion at L3-L4 causes moderate to severe spinal stenosis and left foraminal stenosis. 2. Moderate to severe spinal stenosis at L4-L5 is unchanged from 05/28/2023 CT scan. Has patient had previous pain injection?: No Conservative treatment options previously tried: Home exercise plan Length of treatment: Longer than 6 weeks Meds Home Medications and Allergies Home Medications ?Medication ?Instructions ?Recorded ?Confirmed ?Type testosterone 75 mg implant pellet 75 mg implant .3x ayear Supplement 02/14/19 12/30/23 History (Testopel) sildenafil (pulm.hypertension) 20 20 mg PO DIRECTED PRN Edema 01/21/23 12/30/23 History mg tablet pantoprazole 40 mg tablet,delayed 40 mg PO DAILY 10/15/23 12/30/23 History release valsartan 160 1 tab PO DAILY 10/15/23 12/30/23 History mg-hydrochlorothiazide 25 mg tablet cholecalciferol (vitamin D3) 125 125 mcg PO DAILY #30 caps 11/12/23 12/30/23 Rx mcg (5,000 unit) capsule ezetimibe 10 mg tablet 10 mg PO DAILY #30 tabs 11/12/23 12/30/23 Rx oxycodone 10 mg tablet 10 mg PO Q4H PRN pain #120 tabs 12/07/23 12/30/23 Rx spironolactone 25 mg tablet See Rx Instructions .Route 12/11/23 12/30/23 Rx .COMPLEX #30 tabs methadone 5 mg tablet 5 mg PO BID #60 tabs 12/21/23 12/30/23 Rx bisoprolol fumarate 5 mg tablet 5 mg PO DAILY #30 tabs 12/28/23 12/30/23 Rx New Prescriptions to Start Prescriptions: Allergies Allergy/AdvReac Type Severity Reaction Status Date / Time No Known Allergies Allergy Verified 12/28/23 09:21 Assessment and Plan *Assessment and plan (1) Lumbar spinal stenosis: Status: Acute Qualifiers: Neurogenic claudication status: with neurogenic claudication Qualified Code(s): M48.062 - Spinal stenosis, lumbar region with neurogenic claudication Category: Medical Code(s): M48.061 - Spinal stenosis, lumbar region without neurogenic claudication (2) Lumbar radiculopathy: Status: Acute Category: Medical Code(s): M54.16 - Radiculopathy, lumbar region (3) Degenerative disc disease, lumbar: Status: Acute Category: Medical Code(s): M51.36 - Other intervertebral disc degeneration, lumbar region Plan I did review over with the patient that he may benefit from a lumbar epidural as well as possible SI injections in the future. Risk and benefits of the epidural were explained to the patient and he would like to proceed forward with this plan of care. Patient has tried and failed conservative therapy including continued at home stretching exercise for longer than 6 weeks. Patient is not on any blood thinners. Patient will be scheduled for an LESI L4-L5 under fluoroscopy. Patient has been instructed to contact the clinic with any concerns before the next appointment. Dr. Gallegos has reviewed this note and agrees with this plan of care. This note was dictated using voice recognition software and make contain errors or omissions. All injections are used with Lidocaine or Bupivacaine and Depo Medrol.
== END 2023-12-30 23:59 | disposition home or self-care (01) ==
LOC: SC.PAIN 09:41
PROVIDERS: PCP Internal Medicine; Visit Provider Nurse Practitioner Family
DX: M48.062 Spinal stenosis, lumbar region with neurogenic claudication (principal); M51.16 Intervertebral disc disorders with radiculopathy, lumbar region; Z73.89 Other problems related to life management difficulty
CPT/HCPCS: 99212; G0463

== ENCOUNTER → 2024-01-07 08:00 | Outpatient (CLI) | payer SELFPAY | LOC: SL 01-11 06:43 | PROVIDERS: PCP Internal Medicine; Visit Provider Physician Assistant | DX: G47.33 Obstructive sleep apnea (adult) (pediatric) (principal); G47.36 Sleep related hypoventilation in conditions classified elsewhere | CPT/HCPCS: 95806 ==

== ENCOUNTER 2024-02-18 13:06 | Outpatient (CLI) | payer MEDICAID, SELFPAY ==
--- NOTE | 2024-02-18 | CA_ITS ---
APPROVED REPORT Exam: Pharmacologic Technologist: Bettina Zafar, Ht: 5 ft 11 in Wt: 171 lbs BSA: 1.97 m2 HR: 51 bpm BP: 138/86 mmHg Rhythm: sinus bradycardia Medical History Medications: Pantoprazole,,,,, Vit D3,,,,, MethADONE,,,,, OxYCODONE,,,,, BisOPROLOL Fumarate,,,,, Ezetimbe,,,,, SilDENAFIL,,,,, Cardiac Risk Factors: Hyperlipidemia, HTN, FHX of CAD Stress Test Details Test: LEXISCAN HR Resting HR: 52 bpm Max Heart Rate (APMHR): 156 bpm Max HR Achieved: 76 bpm Target HR (85% APMHR): 133 bpm % of APMHR: 49 Recovery HR: 69 bpm BP Resting BP: 138.0/86.0 mmHg Max BP: 154.0/86.0 mmHg Recovery BP: 154.0/86.0 mmHg ECG Resting ECG: sinus bradycardia Stress ECG: No significant ST changes Arrhythmia: None Clinical Exercise duration: 04:00 min Highest Stage Achieved: Exercise capacity: 1.0 METs Stress ECG Conclusion During lexiscan pt experinced very brief chest discomfort, SOA, stomach cramps, and head cramps. No arrhythmias noted. No significant ST changes Conclusion: Unremarkable lexiscan stress. Myoview images reported separately. Test Summary REST . . . . . . . Sitting REST 03:45 . . 52 . 138/ 86 . . Stage 1 01:00 . . 71 . . . . Stage 2 01:00 . . 66 . 147/ 95 . . Stage 3 01:00 . . 69 . . . . Stage 4 01:00 . . 56 . 152/ 86 . Stop exercise at 04:00 RECOVERY 01:00 . . 63 . 147/ 87 . . RECOVERY 02:00 . . 55 . 147/ 87 . . RECOVERY 03:00 . . 54 . 154/ 86 . . RECOVERY 03:37 . . 53 . 149/ 88 . . Electronically signed by : Tigist Conway MD 02/22/2024 12:35:51
--- NOTE | 2024-02-18 13:11 | NM_ITS ---
APPROVED REPORT Exam: Nuclear Stress Test Indication: SOB, Fatigue, HTN, High cholesterol, Family history Patient Location: Outpatient Stress Tech: Bettina MEDELLIN Tech:NICOLE Flores RT(R)(N) Ht: 5 ft 11 in Wt: 174 lbs HR: 52 bpm BP: 138/86 mmHg BSA: 1.99 m2 TID: 1.18 BMI: 24.2 History: SOB, Fatigue, HTN, High cholesterol, Family history Procedure: Patient received 0.4 mg of intravenous Lexiscan, resting heart rate 52 bpm, resting blood pressure 138/86 mmHg, with Lexiscan maximum heart rate achieved was 76 bpm which is % of the maximum predicted heart rate and blood pressure was 154/86 mmHg. With Lexiscan, patient denied any complaint of chest pain. Cardiac Stress and Resting SPECT Images: Cardiac Stress and Resting SPECT images were obtained using technetium 99m Myoview 32.8 mCi stress and 10.24 mCi at rest. Technically difficult study due to significant soft tissue overlap with the myocardial borders. This may affect the diagnostic interpretation of the study findings. Resting and stress imaging in supine and prone positions demonstrate a medium sized, moderate, predominantly fixed perfusion defect in the basal to mid inferior and inferoseptal LV miller. There is surrounding reversibility noted in the basal inferior LV wall. Gated imaging demonstrates normal global and regional LV systolic function. LVEF is calculated at 52%. Conclusion: Technically difficult study Medium sized, moderate, predominantly fixed perfusion defect in the basal to mid inferior and inferoseptal LV miller. There is surrounding reversibility noted in the basal inferior LV wall. Findings are suggestive of partial reversible ischemia. Gated imaging demonstrates normal global and regional LV systolic function. LVEF is calculated at 52%. In the setting of technically difficult study, further evaluation noninvasively with CCTA suggested prior to proceeding with invasive coronary angiography. Electronically signed by : Tigist Conway MD 02/22/2024 12:39:04
[2024-02-18] MEDS: REGADENOSON 0.4MG/5ML SYRINGE 0.4 MG IV (15:41)
[2024-02-18] MEDS: SODIUM CHLORIDE 0.9% 10ML SYR (RAD ONLY) 10 ML IV ×2 (15:41→15:42)
[2024-02-18] MEDS: ISOTOPE MYOVIEW (PER STUDY) 1 DOSE IV (15:42)
[2024-02-18 16:22] LABS: Blood Urea Nitrogen 11 mg/dl (9-20); Calcium 9.9 mg/dl (8.4-10.2); Carbon Dioxide 32 mmol/L (22.0-30.0); Chloride 107 mmol/L (98-107); Estimated Glomerular Filt Rate 75 ml/min (>60); GFR (African American) 91 ML/MIN (>60); Glucose 99 mg/dl (74-100); Potassium 4.1 mmoL/L (3.5-5.1)
[2024-02-18 16:34] LABS: Anion Gap 9.1 mEq/L (5-15); Sodium 144 mmol/L (136-145)
== END 2024-02-18 23:59 | disposition home or self-care (01) ==
LOC: RAD 13:08
PROVIDERS: PCP Internal Medicine; Visit Provider Physician Assistant
DX: R07.2 Precordial pain (principal); R06.09 Other forms of dyspnea; R53.83 Other fatigue
CPT/HCPCS: 36415; 78452; 80048; 93017; 93018; A9502; J2785

== ENCOUNTER 2024-03-03 09:15 | Outpatient (CLI) | payer MEDICAID, SELFPAY ==
[2024-03-03 20:24] LABS: Alanine Aminotransferase 22 U/L (12-78); Albumin Level 4.5 g/dl (3.5-5.0); Albumin/Globulin Ratio 1.8 (1.1-1.8); Alkaline Phosphatase 54 U/L (38-126); Anion Gap 15.8 mEq/L (5-15); Aspartate Amino Transferase 28 U/L (17-59); Bilirubin,Total 0.8 mg/dl (0.2-1.3); Blood Urea Nitrogen 14 mg/dl (9-20); Calcium 9.9 mg/dl (8.4-10.2); Carbon Dioxide 25 mmol/L (22.0-30.0); Chloride 106 mmol/L (98-107); Chol/HDL Ratio 4.6 (1-3.5); Cholesterol 214 mg/dl (140-200); Estimated Glomerular Filt Rate 67 ml/min (>60); GFR (African American) 82 ML/MIN (>60); Globulin 2.5 g/dL (1.3-3.2); Glucose 93 mg/dl (74-100); HDL Cholesterol 47 mg/dl (40-60); Potassium 3.8 mmoL/L (3.5-5.1); Sodium 143 mmol/L (136-145); Triglycerides 174 mg/dl (30-150); VLDL Cholesterol 35 mg/dL (0-40)
[2024-03-03 20:35] LABS: Direct LDL Cholesterol 152.45 mg/dL (100-129)
[2024-03-03 20:43] LABS: 25-OH Vitamin D, Total 44.1 ng/mL (30-100)
== END 2024-03-03 23:59 | disposition home or self-care (01) ==
LOC: LAB.DROPOF 03-04 09:29
PROVIDERS: PCP Internal Medicine; Visit Provider Internal Medicine
DX: R94.39 Abnormal result of other cardiovascular function study (principal); E55.9 Vitamin D deficiency, unspecified; E78.2 Mixed hyperlipidemia
CPT/HCPCS: 80053; 80061; 82306

== ENCOUNTER 2024-03-08 08:06 | Day surgery (SDC) | payer MEDICAID, SELFPAY ==
[2024-03-08] VITALS (11 sets, daily range): BP systolic 93–152; BP diastolic 54–85; PULSE 46–60; RESP 15–18; O2SAT 91–99; BMI 23.7
--- NOTE | 2024-03-08 07:28 | IR_ITS ---
APPROVED REPORT Patient Location: Outpatient Product Management Specialist: Chaim Brooks, RT (R) PROCEDURES Left heart catheterization Left ventriculogram Selective coronary angiogram INDICATION Abnormal Myoview, Chest pain Informed consent was obtained prior to the procedure. COMPLICATIONS NONE Estimated Blood Loss: LESS THAN 10 ML TECHNIQUE One percent lidocaine used to anesthetize the right anterior aspect of the wrist. The right radial artery was accessed via the Seldinger technique. A 6 [place] sheath was placed in the right radial artery. 2.5 mg of Verapamil, 800 mcg of nitroglycerin, 1mg Lidocaine and 5000 U Heparin were given through the arterial sheath. The 6 [place] JL 3 guide catheter was also used to perform left heart catheterization, left ventriculogram and selective coronary angiogram. At the end of the procedure the sheath was removed good hemostasis was achieved using Traclet band, patient was transferred to the postop holding area in stable condition. ANGIOGRAPHIC RESULTS The left main artery Normal The left anterior descending artery Has a proximal 10% eccentric luminal irregularity with a mid vessel concentric 30% stenosis. The LAD is large and wraps the apex The circumflex artery Nondominant normal The right coronary artery Is dominant and a large-caliber vessel with a proximal eccentric 30% lesion along a tortuous bend The CHEATHAM ventriculogram reveals Normal 65% The left ventricular end-diastolic pressure 10 to 15 mmHg IMPRESSION Mild to moderate mid LAD disease as described above Mild to moderate proximal right coronary artery stenosis along a tortuous bend Normal ejection fraction Normal LVEDP During the initial cardiac angiogram BUSTER II flow was present which improved to BUSTER-3 flow suggesting endothelial dysfunction PLAN 1. Medical management for coronary disease 2. Empiric treatment of endothelial dysfunction 3. Avoidance of tobacco products 4. LDL less than 55 to achieve that high intensity statin Electronically signed by : Elvin Brand MD 03/08/2024 10:52:38
[2024-03-08 08:36] LABS: Basophils % 0.7 % (0.1-2.0); Eosinophils # 0.2 K/mm3 (0.0-0.4); Eosinophils % 3.4 % (0.1-12.0); Hematocrit 40.2 % (42.0-52.0); Hemoglobin 14.1 g/dL (14.1-18.0); Lymphocytes # 1.3 K/mm3 (0.7-4.5); Lymphocytes % 21.9 % (10-50); Mean Corpuscular Volume 88.6 fl (80-94); Mean Platelet Volume 7.8 fl (7.4-10.4); Monocytes # 0.4 K/mm3 (0.1-1.0); Monocytes % 6.1 % (1.7-9.3); Neutrophils # 4.1 K/mm3 (1.8-7.8); Neutrophils % 67.9 % (37.0-80.0); Platelet Count 222 K/mm3 (142-424); Red Blood Count 4.54 M/mm3 (4.60-6.20); Red Cell Distribution Width 13.7 % (11.5-17.5); White Blood Count 6.1 K/mm3 (4.8-10.8)
[2024-03-08 08:48] LABS: Anion Gap 9.4 mEq/L (5-15); Blood Urea Nitrogen 13 mg/dl (9-20); Calcium 9.4 mg/dl (8.4-10.2); Carbon Dioxide 30 mmol/L (22.0-30.0); Chloride 106 mmol/L (98-107); Creatinine Clearance Estimated 74 mL/min (50-200); Estimated Glomerular Filt Rate 67 ml/min (>60); GFR (African American) 82 ML/MIN (>60); Glucose 106 mg/dl (74-100); Potassium 3.4 mmoL/L (3.5-5.1); Sodium 142 mmol/L (136-145)
[2024-03-08] MEDS: HEPARIN 1,000 UNITS/500ML NS (CATH LAB) 3000 UNIT IV (09:32)
[2024-03-08] MEDS: diphenhydrAMINE 50MG/ML VIAL 50 MG IV (09:32)
[2024-03-08] MEDS: LIDOCAINE 1% 10ML MDV 20 ML IJ (09:33)
[2024-03-08] MEDS: 0.9 % SODIUM CHLORIDE 500 ML 25 ML IV (09:33)
[2024-03-08] MEDS: HEPARIN 1,000 UNITS/ML 10ML VIAL (CATH LAB) 10000 UNIT IV (09:33)
[2024-03-08] MEDS: VERAPAMIL 2.5MG/ML 2ML VIAL 2.5 MG IV (09:34)
[2024-03-08] MEDS: NITROGLYCERIN 800MCG/8ML SYR (CATH LAB) 800 MCG IA (09:34)
[2024-03-08] MEDS: MIDAZOLAM HCL 1MG/ML 5ML VIAL 1 MG IV (10:09)
[2024-03-08] MEDS: FENTANYL 100MCG/2ML VIAL 50 MCG IV (10:09)
[2024-03-08] MEDS: IOPAMIDOL-370 (76%);100ML BOTTLE 50 ML IV (13:33)
== END 2024-03-08 13:21 | disposition home or self-care (01) ==
LOC: CATHLAB 08:07
PROVIDERS: PCP Internal Medicine; Visit Provider Internal Medicine
DX: R94.39 Abnormal result of other cardiovascular function study (principal); G47.33 Obstructive sleep apnea (adult) (pediatric); R09.89 Other specified symptoms and signs involving the circulatory and respiratory systems; I10 Essential (primary) hypertension; R53.83 Other fatigue; E78.2 Mixed hyperlipidemia; Z79.899 Other long term (current) drug therapy; I25.10 Atherosclerotic heart disease of native coronary artery without angina pectoris; R07.9 Chest pain, unspecified
CPT/HCPCS: 80048; 85025; 93458; 99152; C1725; C1769; J1200; J1644; J2250; J3010; Q9967

== ENCOUNTER 2024-03-29 20:16 | Outpatient (CLI) | payer MEDICAID, SELFPAY ==
[2024-03-29 20:49] LABS: Potassium 3.9 mmoL/L (3.5-5.1)
== END 2024-03-29 23:59 | disposition home or self-care (01) ==
LOC: LAB.DROPOF 20:17
PROVIDERS: PCP Internal Medicine; Visit Provider Internal Medicine
DX: R25.2 Cramp and spasm (principal)
CPT/HCPCS: 84132

== ENCOUNTER 2024-06-14 09:14 | Outpatient (CLI) | payer MEDICAID, SELFPAY ==
[2024-06-14 09:58] LABS: Albumin Level 4.1 g/dl (3.5-5.0)
[2024-06-14 10:01] LABS: Alanine Aminotransferase 22 U/L (12-78); Alkaline Phosphatase 55 U/L (38-126); Aspartate Amino Transferase 32 U/L (17-59); Bilirubin,Indirect 0.5 mg/dL (0.0-0.9); Bilirubin,Total 0.5 mg/dl (0.2-1.3); Bilirubin,Unconjugated 0.5 mg/dL (0.0-1.1); Chol/HDL Ratio 1.9 (1-3.5); Cholesterol 99 mg/dl (140-200); Creatine Kinase 267 U/L (55-170); HDL Cholesterol 51 mg/dl (40-60); Total Protein,Serum 6.3 g/dl (6.3-8.2); Triglycerides 142 mg/dl (30-150); VLDL Cholesterol 28 mg/dL (0-40)
[2024-06-14 10:14] LABS: Direct LDL Cholesterol < 30.00 mg/dL (100-129)
== END 2024-06-14 23:59 | disposition home or self-care (01) ==
LOC: LAB 09:15
PROVIDERS: PCP Internal Medicine; Visit Provider Physician Assistant
DX: N18.31 Chronic kidney disease, stage 3a (principal); R53.83 Other fatigue; E55.9 Vitamin D deficiency, unspecified; N17.9 Acute kidney failure, unspecified; M62.82 Rhabdomyolysis; E78.2 Mixed hyperlipidemia; R53.82 Chronic fatigue, unspecified; R42 Dizziness and giddiness; R53.1 Weakness; R06.09 Other forms of dyspnea; I10 Essential (primary) hypertension; R07.2 Precordial pain; I25.10 Atherosclerotic heart disease of native coronary artery without angina pectoris
CPT/HCPCS: 36415; 80061; 80076; 82550

== ENCOUNTER 2024-08-30 09:00 | Outpatient (RCR) | payer MEDICAID, SELFPAY | END 2024-08-30 23:59 | disposition home or self-care (01) | LOC: PT 09:00 | PROVIDERS: Visit Provider Physician Assistant Medical | DX: Z96.651 Presence of right artificial knee joint (principal) | CPT/HCPCS: 97014; 97016; 97110; 97140; 97163; G0283 ==

== ENCOUNTER 2024-09-29 09:00 | Outpatient (RCR) | payer MEDICAID, SELFPAY | END 2024-09-29 23:59 | disposition home or self-care (01) | LOC: PT 09:00 | PROVIDERS: Visit Provider Physician Assistant Medical | DX: Z47.89 Encounter for other orthopedic aftercare (principal); Z96.651 Presence of right artificial knee joint | CPT/HCPCS: 97014; 97016; 97110; 97140; 97164; 97530; G0283 ==

== ENCOUNTER 2024-10-04 11:05 | Outpatient (RCR) | payer MEDICAID, SELFPAY | END 2024-10-04 23:59 | disposition home or self-care (01) | LOC: PT 11:05 | PROVIDERS: Visit Provider Physician Assistant Medical | DX: Z47.89 Encounter for other orthopedic aftercare (principal); Z96.651 Presence of right artificial knee joint | CPT/HCPCS: 97110; 97140 ==

== ENCOUNTER 2025-01-23 10:43 | Outpatient (CLI) | payer MEDICARE, MEDICAID, SELFPAY ==
[2025-01-23 14:59] LABS: Hematocrit 43.5 % (42.0-52.0); Hemoglobin 15.0 g/dL (14.1-18.0); Immature Granulocytes % 0.2 %; Mean Corpuscular HGB Conc 34.5 g/dL (31.8-35.4); Mean Corpuscular Hemoglobin 31.9 pg (27.0-31.2); Mean Corpuscular Volume 92.6 fl (80-94); Nucleated Red Blood Cells % 0 %; Platelet Count 244 K/mm3 (142-424); Red Blood Count 4.70 M/mm3 (4.60-6.20); Red Cell Distribution Width-SD 50.5 fL; White Blood Count 6.1 K/mm3 (4.8-10.8)
[2025-01-23 15:07] LABS: Albumin Level 4.3 g/dl (3.5-5.0); Chloride 99 mmol/L (98-107); Potassium 3.1 mmoL/L (3.5-5.1); Sodium 138 mmol/L (136-145)
[2025-01-23 15:10] LABS: Alanine Aminotransferase 27 U/L (12-78); Albumin/Globulin Ratio 1.9 (1.1-1.8); Alkaline Phosphatase 54 U/L (38-126); Anion Gap 13.1 mEq/L (5-15); Aspartate Amino Transferase 52 U/L (17-59); Bilirubin,Total 1.6 mg/dl (0.2-1.3); Blood Urea Nitrogen 11 mg/dl (9-20); Carbon Dioxide 29 mmol/L (22.0-30.0); Creatinine,Serum 0.90 mg/dl (0.66-1.25); Estimated Glomerular Filt Rate 85 ml/min (>60); GFR (African American) 102 ML/MIN (>60); Globulin 2.3 g/dL (1.3-3.2); Total Protein,Serum 6.6 g/dl (6.3-8.2)
[2025-01-23 15:11] LABS: Calcium 9.3 mg/dl (8.4-10.2); Glucose 110 mg/dl (74-100)
--- OUTSIDE RECORDS SUMMARY | 2025-01-24 11:57 | XMS_ITS | Encounter Summary ---
Author Organization [facility] Address [address] [place] [address] Care Team Providers Care Skein Mercerizing Machine Operator Name Role Phone Chaim Barcenas MD Primary Care Provider Encounter Details Date Type Department Care Team ([facility] st Contact Info) Description 11/10/2023 Orders Only External Location [address] [place] [address] Provider, External Social History Tobacco Use Types Packs/Day Years Used Date Smoking Tobacco: Never Alcohol Use Standard Drinks/Week Comments Never 0 (1 standard drink = 0.6 oz pur e alcohol) Sex and Gender Information Value Date Recorded Sex Assigned at Male 10/09/2023 3:54 PM EDT Legal Sex Male 7:33 PM EDT Gender Identity Not on file Sexual Orientation Not on file documented as of this encounter Plan of Treatment Not on file documented as of this encounter Procedures Procedure Name Priority Date/Time Associated Diagnosis Comments MR NEURO OUTSIDE IMAGES 11/10/2023 6:00 PM EDT documented in this encounter Results * MR NEURO OUTSIDE IMAGES (11/10/2023 6:00 PM EDT) Anatomical Region Laterality Modality Magnetic Resonan ce 11/10/2023 6:00 PM EDT us External Provider IMG MRI PROCEDURES Final Resul t documented in this encounter Visit Diagnoses Not on filedocumented in this encounter Care Teams Skein Mercerizing Machine Operator Relationship Specialty Start Date End Date Chaim Barcenas MD [address] [place] [address] PCP - General 09/14/20 documented as of this encounter
--- OUTSIDE RECORDS SUMMARY | 2025-01-24 11:57 | XMS_ITS | Encounter Summary ---
Author Organization [facility] Address [address] [id number] Care Team Providers Care Sewing Supervisor Name Role Phone Chaim Barcenas MD Primary Care Provider [phone] Reason for Referral * Consultation (Routine) - Authorized Specialty Diagnoses / Procedures Referred By Contdiane t Referred To Contact Dental Charter Driver / Dentistry Diagnoses Dental abscess Open fracture of tooth, initial encounter Ren Wang MD [address] [place] [address] Phone: tel: fax: [facility] [address] [address] Phone: tel: fax: Referral ID Status Reason Start Date Expiration Date Visits Requested Visits Authorized [id number] Authorized Specialty Services Required 01/23/2025 07/25/2026 1 1 Encounter Details Date Type Department Care Team (Late st Contact Info) Description 01/23/2025 Community Orders Community Practice [address] [place] [address] Ren Wang MD [address] [place] [address] Dental abscess (Primary Dx); Open fracture of tooth, initial encounter Social History Tobacco Use Types Packs/Day Years [...] as of this encounter Plan of Treatment Scheduled Referrals Name Type Priority Associated Diagnoses Order Schedule Ambulatory referral to Dentistry Outpatient Referral Routine Dental abscess Open fracture of tooth, initial encounter Expected: 01/23/2025 (Approximate), Expires: 07/27/2026 documented as of this encounter Visit Diagnoses Diagnosis Dental abscess- Primary Periapical abscess without sinus Open fracture of tooth, initial encounter documented in this encounter Additional Health Concerns Assessment Noted Time A fall risk assessment has been complete d for the patient 05/18/2024 8:17 PM EST A Body Mass Index follow-up plan has been documented for the patient 05/19/2024 4:30 AM EST documented as of this encounter Care Teams Sewing Supervisor Relationship Specialty Start Date End Date Chaim Barcenas MD [address] [place] [address] PCP - General 09/14/20 documented as of this encounter
--- OUTSIDE RECORDS SUMMARY | 2025-01-24 11:57 | XMS_ITS | Clinical Summary ---
Author Organization [facility] Address [address] [place] [address] Care Team Providers Care Brand Strategy Manager Name Role Phone Chaim Barcenas MD Primary Care Provider Allergies No known active allergies Medications methylPREDNISol one (Medrol Dospak) 4 MG tablets Take as directed. 1 each 4 Active Additional Information Patient not taking.Reported on 04/05/2024 lidocaine (Lidoderm) 5 % patch Apply 1 patch topically 1 (one) time each day over 12 hours. Remove & discard patch within 12 hours or as directed by . 15 patch 4 Active Additional Information Patient not taking.Reported on 04/05/2024 methocarbamol (Robaxin) 750 MG tablet Take 1 tablet (750 mg) by mouth 4 (four) times a day if needed for muscle spasms for up to 10 days. 40 tablet 4 Active bisoprolol (Zebeta) 10 MG tablet 4 Active bisoprolol-hydr oCHLOROthiazide (Ziac) 10-6.25 MG tablet Active Vitamin D3 125 MCG (5000 UT) capsule 4 Active ezetimibe (Zetia) 10 MG tablet 4 Active ibuprofen 200 MG tablet 0 Active loratadine (Claritin) 10 MG tablet 0 Active methadone (Dolophine) 5 MG tablet 1 tablet (5 mg). 4 Active oxyCODONE (Roxicodone) 10 MG immediate release tablet 1 tablet (10 mg). 4 Active pantoprazole (Protonix) 40 MG EC tablet 3 Active sildenafil (Revatio) 20 MG tablet 1 tablet (20 mg). 3 Active spironolactone (Aldactone) 25 MG tablet 1 tablet (25 mg). 4 Active Testosterone (Testopel) 75 MG pellet 0 Active testosterone enanthate (Xyosted) 75 MG/0.5ML solution auto-injector Xyosted 75 mg/0.5 mL subcutaneous auto-injector Active valsartan-hydro CHLOROthiazide (Diovan-HCT) 160-25 MG tablet 4 Active Aspirin Low Dose 81 MG EC tablet 4 Active hydroCHLOROthia zide 12.5 MG PO tablet 4 Active HYDROcodone-parish taminophen ([place]) 7.5-325 MG tablet TAKE 1 TABLET BY MOUTH EVERY 4 HOURS FOR 3 DAYS NEEDED 4 Active valsartan (Diovan) 80 MG tablet 1 tablet (80 mg). 4 Active Active Problems Problem Noted Date Diagnosed Date Lumbar radiculopathy 12/28/2023 Degenerative disc disease, lumbar 12/28/2023 Weakness of left lower extremity 12/28/2023 Encounters Date Type Department Care Team Description 01/23/2025 Community [facility] [address] [place] [phone] Ren Wang MD Dental abscess (Primary Dx); Open fracture of tooth, initial encounter from Last 3 Months Immunizations Immunization Administration Dates Next Due [employer] COVID-19 Vaccine (Purple Cap) 12 + 09/27/2020 Social History Tobacco Use Types Packs/Day Years Used Date Smoking Tobacco: Never Tobacco Cessation:Counseling Given: Not Answered Alcohol Use Standard Drinks/Week Comments Never 0 (1 standard drink = 0.6 oz pur e alcohol) Sex and Gender Information Value Date Recorded Sex Assigned at Male 10/09/2023 3:54 PM EDT Legal Sex Male 7:33 PM EDT Gender Identity Not on file Sexual Orientation Not on file Last Filed Vital Signs Vital Sign Reading Time Taken Comments Blood Pressure 126/77 04/05/2024 10:06 AM EST Pulse 57 04/05/2024 10:06 AM EST Temperature 36.6 C (97.9 F) 10/09/2023 5:14 PM EDT Respiratory Rate 18 10/09/2023 5:14 PM EDT Oxygen Saturation 97% 04/05/2024 10:06 AM EST Inhaled Oxygen Concentration - - Weight 77.1 kg (170 lb) 05/18/2024 8:17 PM EST Height 180.3 cm (5' 11 ) 05/18/2024 8:17 PM EST Body Mass Index 23.71 05/18/2024 8:17 PM EST Plan of Treatment Health Maintenance Due Date Last Done Comments [facility]-Depression Screening 1959 [facility]-/Child/Adol SDOH Screenings 1960 [facility]- SDOH Screenings 10/07/1977 [facility]-Adult SDOH Screenings 10/07/1977 [facility]-DTaP,Tdap,and Td Vaccine s (1 - Tdap) 10/07/1978 CT Colonography 10/07/2004 Colonoscopy 10/07/2004 FIT-DNA 10/07/2004 FIT 10/07/2004 FOBT 10/07/2004 Sigmoidoscopy 10/07/2004 [facility]-Colorectal Cancer Screening 10/07/2004 [facility]-Pneumococcal Vaccine: 50 + Years (1 of 1 - PCV) 10/07/2009 [facility]-Zoster Vaccines (1 of 2) 10/07/2009 [id number] Vaccine (3 - 2024- season) 2025 09/27/2020, 08/31/2020 [facility]-Influenza Vaccine (#1) 2025 [facility]-RSV Vaccine: 60+ Years o r (1 - 1-dose 75+ series) 10/07/2034 [facility]-Hepatitis C Screening Completed 04/13/2022 HPV Vaccines Aged Out No longer eligi ble based on patient's age to complete this topic [facility]-HIB Vaccines Aged Out No longer e ligible based on patient's age to complete this topic [facility]-Hepatitis A Vaccines Aged Out No longer eligible based on patient's age to complete this topic [facility]-IPV Vaccines Aged Out No longer e ligible based on patient's age to complete this topic [facility]-Rotavirus Vaccines Aged Out No lo nger eligible based on patient's age to complete this topic Procedures Procedure Name Priority Date/Time Associated Diagnosis Comments HEPATITIS C ANTIBODY - ED W/REFLEX TO HCV QUANT PCR STAT 04/13/2022 1:29 PM EST from Last 3 Months or Most Recently Relevant to Health Maintenance Results * Hepatitis C Antibody - ED (04/13/2022 1:29 PM EST) Hepatitis C Antibody Negative Negative 04/13/2022 3:22 PM EST [facility] Blood Venous blood specimen / Unknown Venipuncture / Unknown 04/13/2022 1:29 PM EST 04/13/2022 1:37 PM EST us Shellie Guillory MD LAB BLOOD ORDERABLES Final R esult [facility] [address] [place] [address] from Last 3 Months or Most Recently Relevant to Health Maintenance Insurance [employer] [facility] MEDICAID Care Teams Brand Strategy Manager Relationship Specialty Start Date End Date Chaim Barcenas MD [address] [place] [address] PCP - General 09/14/20
--- OUTSIDE RECORDS SUMMARY | 2025-01-24 11:57 | XMS_ITS | Clinical Summary ---
Author Organization [facility] Address [address] [place] [address] Care Team Providers Care Flight Readiness Technician Name Role Phone Mathew Santiago DO Primary Care Provider [phone] Allergies No known active allergies Medications bisoprolol-hydr ochlorothiazide (ZIAC) 10-6.25 MG per tablet Active vitamin d 125 MCG (5000 UT) capsule 4 Active ezetimibe (ZETIA) 10 MG tablet 4 Active oxyCODONE-aceta minophen (PERCOCET) 10-325 MG per tablet 4 Active methadone (DOLOPHINE) 5 MG tablet 1 tablet. 4 Active OLANZapine (zyPREXA) 5 MG tablet 4 Active pantoprazole (PROTONIX) 40 MG EC tablet 1 tablet. 4 Active sildenafil (REVATIO) 20 MG tablet 4 Active spironolactone (ALDACTONE) 25 MG tablet 1 tablet. 4 Active Testosterone Enanthate (Xyosted) 75 MG/0.5ML solution auto-injector Xyosted 75 mg/0.5 mL subcutaneous auto-injector Active valsartan-hydro chlorothiazide (DIOVAN-HCT) 160-25 MG per tablet 4 Active Active Problems No known active problems Family History Medical History Relation Name Comments Depression Brother Gibson Chavira Cancer Father Olu Chavira Hyperlipidemia Father Olu Chavira Relation Name Status Comments Brother Gibson Chavira Father Olu Chavira Social History Tobacco Use Types Packs/Day Years Used Date Smoking Tobacco: Never Smokeless Tobacco: Never Tobacco Cessation:Counseling Given: Not Answered Alcohol Use Standard Drinks/Week Comments Yes 3 (1 standard drink = 0.6 oz pur e alcohol) Abuse Screen Answer Date Recorded Unsafe at Home or Work/School Not on file Feels Threatened by Someone? Not on file 01/2023 Does Anyone Keep You from Co ntacting Others or Doint Things Outside the Home? Not on file 02/09/2023 Physical Sign of Abuse Present Not on file 1 Housing Stability Answer Date Recorded Current Living Arrangements Not on file 01/2023 Potentially Unsafe Housing Conditions Not on manuel e 02/09/2023 Family and Community Support Answer Ricky e Recorded Help with Day-to-Day Activities Not on file 02/09/2023 Lonely or Isolated Not on file 02/09/2023 Employment Answer Date Recorded Do you want help finding or keeping work or a dara b? Not on file 02/09/2023 Disabilities Answer Date Recorded Concentrating, Remembering, or Making Decisions Difficulty Not on file 02/09/2023 Doing Errands Independently Difficulty Not on fi le 02/09/2023 Education Answer Date Recorded Help with school or training? Not on file Preferred Language Not on file 02/09/2023 Sex and Gender Information Value Date Recorded Sex Assigned at Not on file Legal Sex Male 1:00 PM EDT Gender Identity Not on file Sexual Orientation Not on file Last Filed Vital Signs Vital Sign Reading Time Taken Comments Blood Pressure - - Pulse - - Temperature 36.5 C (97.7 F) 12/08/2023 11:04 AM EDT Respiratory Rate - - Oxygen Saturation - - Inhaled Oxygen Concentration - - Weight 76.8 kg (169 lb 4.8 oz) 12/08/2023 11:04 AM EDT Height 180.3 cm (5' 11 ) 12/08/2023 11:04 AM EDT Body Mass Index 23.61 12/08/2023 11:04 AM EDT Plan of Treatment Health Maintenance Due Date Last Done Comments TDAP/TD VACCINES (1 - Tdap) 10/07/1978 COLOGUARD 10/07/2004 COLON CANCER SCREENING 5 YEHonorio Rowell SIGMOIDOSCOPY 10/07/2004 COLONOSCOPY 10/07/2004 COLORECTAL CANCER SCREENING 10/07/2004 CT COLONOGRAPHY 10/07/2004 FECAL OCCULT BLOOD TEST 10/07/2004 FIT Testing (1 year) 10/07/2004 Pneumococcal Vaccine 50+ (1 of 1 - PCV) 10/07/2009 ZOSTER VACCINE (1 of 2) 10/07/2009 ANNUAL PHYSICAL 12/08/2023 AAA SCREEN ONCE 10/07/2024 INFLUENZA VACCINE 12/02/2024 COVID-19 Vaccine ( season) 2025, 08/31/2020 HEPATITIS C SCREENING Completed 04/13/2022 Insurance [employer] MEDICAID [place] Care Teams Flight Readiness Technician Relationship Specialty Start Date End Date Mathew Santiago DO [address] [place] [id number] PCP - General Internal Medicine 11/02/23
== END 2025-01-23 23:59 | disposition home or self-care (01) ==
LOC: LAB.DROPOF 01-24 11:56
PROVIDERS: PCP Family Medicine; Visit Provider Family Medicine
DX: I10 Essential (primary) hypertension (principal); Z11.59 Encounter for screening for other viral diseases; Z92.29 Personal history of other drug therapy
CPT/HCPCS: 80053; 85025; 87389; 87522

== ENCOUNTER 2025-04-13 08:54 | Outpatient (CLI) | payer MEDICARE, MEDICAID, SELFPAY ==
[2025-04-13 20:32] LABS: Hematocrit 51.9 % (42.0-52.0); Hemoglobin 17.1 g/dL (14.1-18.0); Immature Granulocytes % 0.2 %; Mean Corpuscular HGB Conc 32.9 g/dL (31.8-35.4); Mean Corpuscular Hemoglobin 30.5 pg (27.0-31.2); Mean Corpuscular Volume 92.7 fl (80-94); Nucleated Red Blood Cells % 0 %; Platelet Count 239 K/mm3 (142-424); Red Blood Count 5.60 M/mm3 (4.60-6.20); Red Cell Distribution Width-SD 45.6 fL; White Blood Count 9.3 K/mm3 (4.8-10.8)
[2025-04-13 21:03] LABS: Albumin Level 4.9 g/dl (3.5-5.0); Chloride 99 mmol/L (98-107); Potassium 4.1 mmoL/L (3.5-5.1); Sodium 139 mmol/L (136-145)
[2025-04-13 21:06] LABS: Alanine Aminotransferase 25 U/L (12-78); Albumin/Globulin Ratio 1.9 (1.1-1.8); Alkaline Phosphatase 60 U/L (38-126); Anion Gap 19.1 mEq/L (5-15); Aspartate Amino Transferase 38 U/L (17-59); Bilirubin,Total 1.0 mg/dl (0.2-1.3); Blood Urea Nitrogen 13 mg/dl (9-20); Calcium 9.4 mg/dl (8.4-10.2); Carbon Dioxide 25 mmol/L (22.0-30.0); Cholesterol 104 mg/dl (140-200); Creatinine,Serum 1.30 mg/dl (0.66-1.25); Estimated Glomerular Filt Rate 55 ml/min (>60); GFR (African American) 67 ML/MIN (>60); Globulin 2.6 g/dL (1.3-3.2); Glucose 77 mg/dl (74-100); HDL Cholesterol 65 mg/dl (40-60); Total Protein,Serum 7.5 g/dl (6.3-8.2); Triglycerides 146 mg/dl (30-150)
[2025-04-13 21:12] LABS: C-Reactive Protein 6.5 mg/L (0-4)
[2025-04-13 21:24] LABS: 25-OH Vitamin D, Total 75.4 ng/mL (30-100)
== END 2025-04-13 23:59 | disposition home or self-care (01) ==
LOC: LAB.DROPOF 04-17 08:55
PROVIDERS: PCP Family Medicine; Visit Provider Family Medicine
DX: E55.9 Vitamin D deficiency, unspecified (principal); I10 Essential (primary) hypertension; E78.2 Mixed hyperlipidemia; T50.905A Adverse effect of unspecified drugs, medicaments and biological substances, initial encounter
CPT/HCPCS: 80053; 80061; 82306; 85025; 86140

== ENCOUNTER 2025-04-14 11:09 | Outpatient (CLI) | payer MEDICARE, MEDICAID, SELFPAY ==
[2025-04-14 11:13] LABS: Lyme Ab IgM CIA ND
[2025-04-14 12:02] LABS: Chloride 102 mmol/L (98-107); Potassium 4.0 mmoL/L (3.5-5.1); Sodium 143 mmol/L (136-145)
[2025-04-14 12:05] LABS: Anion Gap 18.0 mEq/L (5-15); Blood Urea Nitrogen 18 mg/dl (9-20); Calcium 9.7 mg/dl (8.4-10.2); Carbon Dioxide 27 mmol/L (22.0-30.0); Creatinine,Serum 1.40 mg/dl (0.66-1.25); Estimated Glomerular Filt Rate 51 ml/min (>60); GFR (African American) 62 ML/MIN (>60); Glucose 108 mg/dl (74-100)
[2025-04-15 10:14] LABS: Lyme Ab CIA Negative (Negative)
== END 2025-04-14 23:59 | disposition home or self-care (01) ==
LOC: LAB 11:10
PROVIDERS: PCP Family Medicine; Visit Provider Family Medicine
DX: E87.6 Hypokalemia (principal); T14.8XXA Other injury of unspecified body region, initial encounter; R21 Rash and other nonspecific skin eruption; W57.XXXA Bitten or stung by nonvenomous insect and other nonvenomous arthropods, initial encounter
CPT/HCPCS: 36415; 80048; 86618